=== PATIENT | male | born 1955 | race Caucasian/White ===

== ENCOUNTER 2020-02-02 09:28 | Inpatient (IN) | payer OTHER, SELFPAY ==
[2020-02-02] VITALS (21 sets, daily range): BP systolic 58–108; BP diastolic 45–85; PULSE 58–110; RESP 10–21; TEMP 36.6–38.8; O2SAT 93–99; BMI 25.2
--- NOTE | ~2020-02-02 | XR_ITS ---
XR abdomen NG/feed tube insert INDICATION: Evaluate NG tube position. TECHNIQUE: Limited KUB perform for evaluating NG tube . COMPARISON: 10/21/2019 FINDINGS: NG tube tip in the stomach. Visualized bowel gas pattern is unremarkable. IMPRESSION: 1: NG tube tip in the stomach. Reviewed, dictated and finalized at location A.
--- NOTE | ~2020-02-02 | XR_ITS ---
EXAMINATION: XR chest 1V portable DATE: 02/05/2020 06:22 INDICATION: Respiratory failure. Intubated. TECHNIQUE: frontal view of the chest was obtained. COMPARISON: Chest radiograph dated 02/04/2020 FINDINGS: Endotracheal tube tip 1.7 cm above the kwasi. Nasogastric tube extends below the left hemidiaphragm with distal tip collimated off the study. Patient is rotated towards the right. Slight improvement in the indistinct interstitial and patchy ai rspace opacities scattered throughout the right lung. New opacity with sharply defined peripheral mar gin projecting over the left midlung zone and favor a skinfold over additional lung disease. No pneum othorax or pleural effusion. Cardiomegaly. Suture anchors at the right humeral head likely related to prior rotator cuff repair with narrowing of the subacromial space suggesting recurrent tear. IMPRESSION: 1. Slight decrease in airspace disease throughout the right lung consistent with improvement in pneum onia and/or asymmetric pulmonary edema. 2. New airspace opacity in the left midlung zone most likely artifact of a skinfold with differential including less likely increasing atelectasis or pneumonia. 3. Cardiomegaly. Reviewed, dictated and finalized at location A. IMPRESSION: 1. Slight decrease in airspace disease throughout the right lung consistent wit h improvement in pneumonia and/or asymmetric pulmonary edema. 2. New airspace opacity in the left midlung zone most likely artifact of a skin fold with differential including less likely increasing atelectasis or pneumoni a. 3. Cardiomegaly.
--- NOTE | ~2020-02-02 | XR_ITS ---
EXAMINATION: XR chest 1V portable EXAM DATE: 02/04/2020 06:29 INDICATION: Intubated. Respiratory failure. TECHNIQUE: Portable AP frontal chest x-ray was obtained. Comparison is made to prior examination from 02/03/2020. FINDINGS: Endotracheal tube tip is 2 centimeters above the kwasi (ideal range is between 2 to 5 cm). There is a nasogastric tube seen with tip collimated off the study, but below the left hemidiaphrag m. There is extensive right-sided, moderate left-sided acute airspace disease. There is no pneumothorax suspected. Cardiac silhouette is enlarged but stable in size compared to prior exam. The bones a nd soft tissues are unremarkable. Endotracheal tube has been retracted slightly, otherwise is no sig nificant interval change compared to prior exam. IMPRESSION: 1. Tubes in position. 2. Extensive right, moderate left-sided acute airspace disease. Reviewed, dictated and finalized at location A.
--- NOTE | ~2020-02-02 | XR_ITS ---
XR chest ET placement 02/02/2020 13:29 Indication: Respiratory failure. Dyspnea. Low oxygen saturation. Procedure: AP portable chest Comparison: Comparison to multiple prior studies sequentially, with oldest reviewed study dated 10/29. Findings: Endotracheal tube tip 7 mm above the kwasi. NG tube in the stomach. Cardiomegaly. Right ba silar airspace disease, compatible with pneumonia. Impression: 1: Right basilar airspace disease, compatible with pneumonia. 2: Endotracheal tube tip 7 mm above the kwasi. Recommend retraction approximately 3-4 cm. Reviewed, dictated and finalized at location A. Impression: 1: Right basilar airspace disease, compatible with pneumonia. 2: Endotracheal tube tip 7 mm above the kwasi. Recommend retraction approxima tely 3-4 cm.
--- NOTE | ~2020-02-02 | XR_ITS ---
XR chest 1V portable 02/02/2020 10:30 Indication: Shortness of breath. Low oxygen saturation Procedure: AP view of the chest Comparison: 10/31/2019 Findings: Improved right upper lobe airspace consolidation. There is a left perihilar and right basil ar airspace disease as well. Cardiomegaly. Small right pleural effusion. Impression: 1: Patchy bilateral airspace disease with improving consolidation in the right upper lobe, consistent with pneumonia. 2: Small right pleural effusion. Reviewed, dictated and finalized at location A. Impression: 1: Patchy bilateral airspace disease with improving consolidation in the right upper lobe, consistent with pneumonia. 2: Small right pleural effusion.
--- NOTE | ~2020-02-02 | XR_ITS ---
EXAMINATION: XR chest 1V portable EXAM DATE: 02/03/2020 05:47 INDICATION: Respiratory failure. TECHNIQUE: Portable AP frontal chest x-ray was obtained. Comparison is made to prior examination from 02/02/2020. FINDINGS: Endotracheal tube tip is 0.5 centimeters above the kwasi (ideal range is between 2 to 5 cm ). There is a nasogastric tube seen with tip collimated off the study, but below the left hemidiaphr agm. There is extensive right-sided, moderate left-sided acute airspace disease. There is no pneumothorax suspected. Cardiac silhouette is enlarged but stable in size compared to prior exam. The bones a nd soft tissues are unremarkable. There is no significant interval change compared to prior exam. IMPRESSION: 1. ET tube above kwasi, but could be safely retracted 1-2 cm. 2. Stable airspace disease and other findings as above. Reviewed, dictated and finalized at location A.
--- NOTE | ~2020-02-02 | XR_ITS ---
EXAMINATION: XR chest 1V portable DATE: 02/06/2020 06:14 INDICATION: Intubated. Respiratory failure. TECHNIQUE: frontal view of the chest was obtained. COMPARISON: Chest radiograph dated 02/05/2020 FINDINGS: Endotracheal tube tip 2.1 cm above the kwasi. Nasogastric tube coiled in the stomach. Patient is again rotated towards the right. No significant interval change in interstitial and mild p atchy airspace opacities throughout the right lung and in the left perihilar and lower lung zones. No pneumothorax or definitive pleural effusion. Cardiomegaly. Postoperative change of right rotator cuf f repair with moderate right glenohumeral osteoarthritis. IMPRESSION: 1. No significant change in bilateral airspace disease, right greater than left which could represent pneumonia or asymmetric pulmonary edema. 2. Cardiomegaly. Reviewed, dictated and finalized at location A.
--- NOTE | ~2020-02-02 | US_ITS ---
EXAMINATION: US venous doppler LE EXAM DATE: 02/03/2020 13:12 INDICATION: Low oxygen. TECHNIQUE: Multiple grayscale, color flow and Doppler images of the lower extremity deep venous syste ms bilaterally were obtained and reviewed. Comparison is made to prior examination from 03/29/2019. FINDINGS: Right side: The right common femoral, femoral and profunda veins demonstrate normal color flow, respi ratory variation, augmentation and compressibility. Compressibility, color flow confirmed within the right popliteal, posterior tibial, peroneal, and greater saphenous veins. Left side: The left common femoral, femoral and profunda veins demonstrate normal color flow, respira tory variation, augmentation and compressibility. Compressibility, color flow confirmed within the l eft popliteal, posterior tibial, peroneal, and greater saphenous veins. IMPRESSION: 1. No lower extremity deep venous thrombosis bilaterally. Reviewed, dictated and finalized at location A.
--- NOTE | ~2020-02-02 | XR_ITS ---
EXAMINATION: XR chest 1V portable DATE: 02/07/2020 06:03 INDICATION: Intubation. Respiratory failure. TECHNIQUE: frontal view of the chest was obtained. COMPARISON: Chest radiograph dated 02/06/20 FINDINGS: Patient is again rotated towards the right. Endotracheal tube and nasogastric tube are no longer visu alized, correlate for interval removal. No significant interval change in reticular predominant opaci ties throughout the right lung and in the left mid and lower lung zones. Small calcified nodule in th e left upper lung zone consistent with old granulomatous disease. No pneumothorax. Likely very small right pleural effusion. Cardiomegaly. IMPRESSION: 1. Minimal change attending for differences in technique in bilateral airspace disease, right greater than left which could represent pulmonary edema and/or pneumonia. 2. Very small right pleural effusion. 3. Cardiomegaly. Reviewed, dictated and finalized at location A. IMPRESSION: 1. Minimal change attending for differences in technique in bilateral airspace disease, right greater than left which could represent pulmonary edema and/or p neumonia. 2. Very small right pleural effusion. 3. Cardiomegaly.
--- NOTE | 2020-02-02 09:29 | ECG_ITS ---
Measurements Intervals [place] Rate: 107 P: 38 VT: 114 QRS: -85 QRSD: 108 T: 57 QT: 314 QTc: 420 Interpretive Statements SINUS TACHYCARDIA WITH SHORT VT INTERVAL VENTRICULAR PREMATURE COMPLEX LEFT ANTERIOR FASCICULAR BLOCK BORDERLINE T WAVE ABNORMALITY- LATERAL LEADS BASELINE ARTIFACT- I, II, III, AVL ABNORMAL ECG Electronically Signed On 02-02-2020 10:56:42 CDT by Antelmo Aldana D.O.
--- NOTE | 2020-02-02 09:42 | ED.SOB ---
HPI - SOB/Dyspnea General Chief Complaint: Shortness of Breath/Dyspnea Stated Complaint: Low O2, sob Time Seen by Provider: 02/02/20 09:30 History of Present Illness HPI Narrative: Patient is a 64-year-old male who presents the ER with shortness of breath. Family reports he has become more confused and short of breath over the last couple of days. Chronic cough. Has history of COPD and is supposed to wear oxygen but does not. He uses his albuterol frequently without improvement of his symptoms. Patient recently admitted a couple months ago for pneumonia. Patient also has history of opiate abuse and continues to smoke. Related Data Home Medications Medication Instructions Recorded Confirmed amlodipine 5 mg PO DAILY 09/10/19 10/20/19 finasteride 5 mg PO DAILY 09/10/19 10/20/19 lisinopril 20 mg PO DAILY 09/10/19 10/20/19 paroxetine HCl 20 mg PO DAILY 09/10/19 10/20/19 tamsulosin 0.4 mg PO DAILY 09/10/19 10/20/19 nitroglycerin 1 mg SUBLINGUAL DAILY PRN 10/20/19 10/20/19 Allergies Allergy/AdvReac Type Severity Reaction Status Date / Time No Known Allergies Allergy Verified 10/20/19 03:42 Review of Systems Review of Systems: ROS unobtainable: Yes unobtainable due to mental status PMFSH Social History Social History Social History: Patient lives with his Vale who is his POA. He is disabled from his COPD. He remains a full code. He does have known ongoing opioid abuse. Continues to smoke 1 pack of cigarettes daily. Previous alcohol abuse with last alcoholic drink approximately 5 years ago. Smoking packs per day: 1 Smoking cigarettes per day: 20.0 Years smoked: 50 Smoking pack-years: 50.00 Smoking status: Current every day smoker Tobacco type: cigarettes Alcohol intake: former Substance use: current Substance use type: sedatives and painkillers Other substance usage details: Fentanyl, Valium Additional living arrangements comments: Patient lives with his . Additional occupation/education comments: Disabled from COPD. Gender identity (if verbalized by the patient): Male Spiritual care concerns: No Agree to blood products: Yes Exam Narrative: Exam Narrative: GENERAL: Chronically ill-appearing, well-nourished, and in no acute distress. HEAD: Normocephalic, atraumatic. Eyes: PERRLA, EOMI ENT: Mucous membranes moist. CHEST: Diminished bilaterally with increased respiratory rate. HEART: Tachycardic and regular. Normal peripheral pulses. ABDOMEN: Soft, nontender, nondistended. EXTREMITIES: Normal range of motion. No edema. SKIN: Warm, dry, no rash. NEURO: Alert and oriented x2. Course Course Emergency Course: Discussed case with hospitalist and workforce advisor. There is recommend patient be intubated this was performed without issue. Post intubation x-ray showed ET tube was well so I had respiratory with dried 1.5 cm. Patient stable and is received IV antibiotics. Fentanyl and Versed for sedation. Vital Signs Vital signs: Vital Signs Temperature 99.6 F 02/02/20 09:46 Pulse Rate 105 H 02/02/20 09:46 Respiratory Rate 12 02/02/20 09:46 Blood Pressure 99/60 L 02/02/20 09:46 Pulse Oximetry 95 02/02/20 09:46 Temperature 99.6 F 02/02/20 09:46 Pulse Rate 81 02/02/20 13:15 Respiratory Rate 21 H 02/02/20 12:40 Blood Pressure 90/60 L 02/02/20 12:06 Pulse Oximetry 94 02/02/20 13:15 Procedures Intubation Intubation #1: Intubation Date: 02/02/20 Intubation Time: 12:57 sedative: Etomidate Mg Given: 30 paralytic: Succinylcholine Mg Given: 100 Laryngoscope: fiber optic video scope Tube Size (cm): 7.5 Method of Intubation: orotracheal Number of Attempts: 1 Tube Secured Depth (cm): 25 Tube Secured Location: lips Tube Placement Confirmation: visualized tube passing through cords, equal breath sounds bilat
[2020-02-02 09:59] LABS: Basophils Absolute Auto 0.1 K/mm3 (0.0-0.1); Basophils Percent Auto 0.4 % (0.2-1.2); Eosinophils Absolute Auto 0.1 K/mm3 (0-0.3); Eosinophils Percent Auto 0.4 % (0-4.4); Hematocrit 37.8 % (42.0-52.0); Hemoglobin 11.4 g/dL (14.0-18.0); Immature Granulocyte Absolute 0.09 K/mm3 (0.00-0.031); Immature Granulocyte Percent A 0.4 % (0-0.5); Lymphocytes Absolute Auto 1.03 K/mm3 (0.9-3.2); Lymphocytes Percent Auto 4.8 % (18.3-44.2); Mean Corpuscular HGB Conc 30.2 g/dl (32-36); Mean Corpuscular Hemoglobin 28.3 pg (26-34); Mean Corpuscular Volume 93.8 fl (80-100); Mean Platelet Volume 10.4 fl (7.4-10.4); Monocytes Absolute Auto 1.3 K/mm3 (0.1-0.6); Monocytes Percent Auto 6.3 % (2.6-8.5); Neutrophils Absolute Auto 18.6 K/mm3 (1.3-6.7); Neutrophils Percent Auto 87.7 % (45.5-73.1); Platelet Count Result 212 k/mm3 (150-375); Red Blood Count 4.03 M/mm3 (4.6-6.20); Red Cell Distribution Width 15.3 % (11.5-14.5); White Blood Count 21.3 K/mm3 (4.5-10.0)
[2020-02-02] MEDS: SODIUM CHLORIDE 0.9% IV 1,000 ML 999 ML IV CONT ×2 (10:10→10:29)
[2020-02-02 10:11] LABS: Lactic Acid Reflex 0.9 mmol/L (0.7-2.1)
[2020-02-02 10:12] LABS: Alveolar/Arterial O2 Gradient 89.7 mmHg; Base Excess ABG 1.9 mEq/l (+/-2.0); Carboxyhemoglobin 3.4 % THb (0-2.0); Fractional Inspired Oxygen 40 %; HCO3 ABG 32.3 mEq/l (22.0-26.0); Methemoglobin ABG 0.1 %THb (0-1.5); Oxygen Content ABG 15.6 %vol (16.0-22.0); Oxygen Saturation ABG 95.4 % (95.0-100.0); Oxyhemoglobin 91.8 % THb (90.0-100.0); PO2 ABG 97.1 mmHg (80.0-100.0); PO2 FiO2 Ratio Arterial Blood 2.43 %; Reduced Hemoglobin 4.7 %THb (0-5.0)
[2020-02-02 10:14] LABS: Blood Urea Nitrogen 26 mg/dL (9-20); Calcium 9.3 mg/dL (8.4-10.2); Carbon Dioxide 33 mmol/L (22-30); Chloride 97 mmol/L (98-107); Estimated CRCL calculation 84 ml/min; Estimated Glomerular Filt Rate > 60; Glucose 105 mg/dL (75-110); Sodium 135 mmol/L (137-145)
[2020-02-02 10:15] LABS: pH ABG 7.194 (7.350-7.450)
[2020-02-02 10:16] LABS: Device NASAL CANNULA; PCO2 ABG 85.6 mmHg (35.0-45.0); Site Drawn LEFT BRACHIAL
--- NOTE | 2020-02-02 10:37 | PC.NURSE ---
Per verbal order readback from EDP, stop infusing fluids after 1L and reassess. Fluids stopped with 500ml left in both bags.
--- NOTE | 2020-02-02 12:28 | PC.NURSE ---
Per EDP via verbal order readback change TKO rate of fluids to wide open to give the Pt. an additional 500ml bolus.
--- NOTE | 2020-02-02 12:35 | PC.NURSE ---
Vale Napier Pt Phone number [phone]
--- NOTE | 2020-02-02 13:26 | PC.NURSE ---
Addendum entered by Jae Mcdaniel RN 02/02/20 13:37: 1250 Consent obtained from (Vale Napier) over phone. Original Note: 1255 Per EDP verbal order readback give 30mg Etomidate followed by 100mg Succinylcholine. 1256 Bagging patient with BVM 1257 Pt. intubated with 7.5 ET tube 25cm at the lip. 1310 given 2mg versed to sedate Pt. per verbal order readback by EDP.
--- NOTE | 2020-02-02 14:50 | PC.NURSE ---
Upon entering Pt. room, Pt. ventilator alarm going off and found Pt. awake trying to get out of bed. EDP notified and verbal order readback administer 2mg versed for sedation.
[2020-02-02] MEDS: MIDAZOLAM HCL 2 MG/2 ML VIAL (14:51)
--- NOTE | 2020-02-02 15:45 | PM.IMHP ---
H&P: HPI History of Present Illness Chief complaint: ?Low oxygen.? Narrative: Christoph Napier is a 64-year-old male smoker with COPD, chronic respiratory failure, chronic systolic heart failure, hypertension, coronary artery disease, atrial fibrillation, bipolar disorder, and history of opioid and alcohol abuse who presented to the emergency department earlier this morning for evaluation of ?low oxygen.? The patient is currently sedated and intubated, and is unable to provide any medical history. As such, all of the following information is obtained via a review of his electronic medical records as well as discussions with his , Vale. He is known to the hospitalist service, as he was admitted to us in October 2019 with respiratory failure, also requiring intubation. In any regard, he has chronic dyspnea however that has become progressively worse over the past several days. also notes that he has been increasingly confused. This morning his SpO2 at home was 83%, prompting her to bring him in for evaluation. On arrival to the emergency department, the patient was ?lethargic, ashen in color, and demonstrated abdominal breathing.? His SpO2 was 44% on room air. He was subsequently intubated and admitted to the intensive care unit with sepsis secondary to pneumonia and acute on chronic respiratory failure. His blood pressures have been soft since arrival to the hospital, maintaining in the 90 systolic, however he has become progressively more hypotensive and the central line was inserted he is now being started on vasopressors. Review of Systems Review of Systems: Narrative: Unobtainable due to current clinical condition; patient is sedated and intubated. COUNTS INCLUDE 234 BEDS AT THE [facility] Past Medical History Medical History (Updated 02/02/20 @ 19:53 by Afsaneh Mckenna PA-C) Anxiety Arthritis Benign prostatic hyperplasia Bipolar 1 disorder Bowel obstruction Chronic anemia Chronic respiratory failure Chronic systolic congestive heart failure Echocardiogram in October 2018 showed some regional wall motion abnormalities and thus accurate ejection fraction could not be reported. Limited echocardiogram in August 2019 showed mildly reduced LV systolic function with ejection fraction of 40% as well as diastolic dysfunction grade 2. Mid inferior wall and basal anterior lateral wall were akinetic. COPD (chronic obstructive pulmonary disease) Coronary artery disease Depression Diverticulitis Essential hypertension GERD (gastroesophageal reflux disease) Hiatal hernia Hyperlipidemia Obstructive sleep apnea Opiate use Osteoarthritis Pancreatitis Paroxysmal atrial fibrillation Renal disease Tobacco dependence Surgical History Surgical History (Updated 02/02/20 @ 19:47 by Afsaneh Mckenna PA-C) History of bowel resection For benign tumor. History of coronary artery stent placement History of repair of right rotator cuff History of right knee joint replacement Family History Family History Sibling Acute myocardial infarction Colon cancer Diabetes mellitus Hypertension Leukemia Father Acute myocardial infarction Congestive heart failure Mother History of blood clots Cerebrovascular accident Chronic obstructive pulmonary disease Asthma Cancer Sibling Diabetes mellitus Social History Social History (Updated 02/02/20 @ 19:48 by Afsaneh Mckenna PA-C) Social History: Patient lives with his Vale who is his POA. He is disabled from his COPD. He remains a full code. He does have known ongoing opioid abuse. Continues to smoke 1 pack of cigarettes daily. Previous alcohol abuse with last alcoholic drink approximately 5 years ago. Smoking packs per day: 1 Smoking cigarettes per day: 20.0 Years smoked: 50 Smoking pack-years: 50.00 Smoking status: Current every day smoker Tobacco type: cigarettes Other substance usage details: Fentanyl, Valium Aldo
--- NOTE | 2020-02-02 15:57 | ADMGEN ---
This patient, Christoph Napier, was admitted to Intensive Care Unit-3 at 1530. Patient/family oriented to hospital policies and general routines including ID bracelet, bed and alarms, visiting hours, pain management, procedures, bathroom and other care routines, personal items, smoking policy, room service/diet, and visiting hours. Valuables list has been completed. Information on how to activate the Rapid Response Team has been discussed. Patient/Family are encouraged to report perceived risks to care and to ask questions if they do not understand what they are told or what they should do.
[2020-02-02] MEDS: SODIUM CHLORIDE 0.9% IV 500 ML 999 ML IV CONT (16:13)
[2020-02-02] MEDS: CENTRAL LINE FLUSH 10 ML IV PUSH ×2 (16:43→19:41)
--- NOTE | 2020-02-02 16:45 | P.PCNBED_ITS ---
Procedures Central Line Placement: Right Femoral: Discussed w/ patient and/or surrogate, the non-emergent placement of a central venous catheter, including its clinical necessity/indication & associated potential risks & complications.: Yes The patient and/or surrogate understand(s) and acknowledge(s) the need to proceed with central venous catheter insertion as an important element of the patient's clinical management.: Yes Consent: Vale gave consent via phone. Central Line Date: 02/02/20 Central Line Time: 16:45 Pre-procedural Time-Out was completed immediately before starting the procedure and confirmed: Patient Identification, Site, Procedure, Patient Position and the Availability of Requisite Equipment.: Yes Patient Position: supine Patient placed on monitor/pulse ox: Yes Provider Prep: mask, sterile gown, sterile gloves, Max. sterile barrier pre cautions, cap and hand hygiene Central line prep: Povidone-Iodine 1% and sterile full body sheet applied Local anesthesia used: lidocaine 1% Amount of anesthesia used (ml): 5 Ultrasound used for placement: Yes Central line lumen inserted: triple Polish: 7 Length (cm): 20 Post procedure: sutured in place, good blood return, all ports aspirated, flushed, capped, tegaderm, hemostatic disc and aseptic technique maintained throughout procedure Post procedure x-ray: other (N/A with femoral placement. ) Patient tolerated procedure: well Complications: none
[2020-02-02] MEDS: NOREPINEPHRINE 8 MG/D5W 250 ML 8 MG/250 ML BAG 9.4 MG IV CONT (17:11)
[2020-02-02 18:49] LABS: Alveolar/Arterial O2 Gradient 157.7 mmHg; Fractional Inspired Oxygen 40 %; HCO3 ABG 28.2 mEq/l (22.0-26.0); Oxygen Content ABG 14.9 %vol (16.0-22.0); Oxyhemoglobin 88.7 % THb (90.0-100.0); PCO2 ABG 57.3 mmHg (35.0-45.0); PO2 ABG 61.6 mmHg (80.0-100.0); PO2 FiO2 Ratio Arterial Blood 1.54 %; Total Hemoglobin 11.9 g/dL (12.0-18.0)
[2020-02-02 18:50] LABS: Modified Allen's Test Pass; Site Drawn LEFT RADIAL
[2020-02-02 18:51] LABS: Device VENTILATOR
[2020-02-02 18:52] LABS: Arterial Blood Gas PEEP 5 cmH2O; Arterial Blood Gas Pressure Support 0 cmH2O; Arterial Blood Gas Tidal Volume 420 ml; Arterial Blood Gas Vent Mode CMV; Arterial Blood Gas Ventilator rate 20 /MIN
[2020-02-02 22:00] LABS: Influenza Control Positive
[2020-02-02 22:02] LABS: Alanine Aminotransferase 32 U/L (4-50); Albumin Level 3.4 g/dL (3.5-5.1); Alkaline Phosphatase 120 U/L (38-126); Aspartate Amino Transferase 51 U/L (17-59); Bilirubin,Total 0.5 mg/dL (0.2-1.3); Blood Urea Nitrogen 18 mg/dL (9-20); CRP 8.5 mg/dL (<1.0); Calcium 8.2 mg/dL (8.4-10.2); Carbon Dioxide 34 mmol/L (22-30); Chloride 99 mmol/L (98-107); Estimated CRCL calculation 96 ml/min; Estimated Glomerular Filt Rate > 60; Glucose 100 mg/dL (75-110); Lactate Dehydrogenase 412 U/L (313-618); Magnesium 1.9 mg/dL (1.6-2.3); Phosphorus 2.1 mg/dL (2.5-4.5); Potassium 4.5 mmol/L (3.4-5.0); Sodium 136 mmol/L (137-145)
[2020-02-03] VITALS (23 sets, daily range): BP systolic 77–116; BP diastolic 37–78; PULSE 53–92; RESP 13–20; TEMP 36.6–38.1; O2SAT 20–97
[2020-02-03] MEDS: CENTRAL LINE FLUSH 10 ML IV PUSH ×4 (03:49→20:06)
[2020-02-03 04:38] LABS: Alveolar/Arterial O2 Gradient 156.3 mmHg; Base Excess ABG 6.2 mEq/l (+/-2.0); Fractional Inspired Oxygen 40 %; HCO3 ABG 33.3 mEq/l (22.0-26.0); Oxygen Content ABG 14.8 %vol (16.0-22.0); Oxygen Saturation ABG 88.9 % (95.0-100.0); Oxyhemoglobin 89.1 % THb (90.0-100.0); PO2 ABG 59.2 mmHg (80.0-100.0); PO2 FiO2 Ratio Arterial Blood 1.48 %; Total Hemoglobin 11.8 g/dL (12.0-18.0); pH ABG 7.358 (7.350-7.450)
[2020-02-03 04:40] LABS: Device VENTILATOR; Modified Allen's Test Pass; PCO2 ABG 60.6 mmHg (35.0-45.0); Site Drawn RIGHT RADIAL
[2020-02-03 04:41] LABS: Arterial Blood Gas PEEP 5 cmH2O; Arterial Blood Gas Tidal Volume 420 ml; Arterial Blood Gas Vent Mode CMV; Arterial Blood Gas Ventilator rate 20 /MIN
[2020-02-03 05:27] LABS: Hematocrit 34.4 % (42.0-52.0); Hemoglobin 10.7 g/dL (14.0-18.0); Mean Corpuscular HGB Conc 31.1 g/dl (32-36); Mean Corpuscular Hemoglobin 28.6 pg (26-34); Platelet Count Result 198 k/mm3 (150-375); Red Blood Count 3.74 M/mm3 (4.6-6.20); Red Cell Distribution Width 15.5 % (11.5-14.5); White Blood Count 20.1 K/mm3 (4.5-10.0)
[2020-02-03 05:42] LABS: Alanine Aminotransferase 29 U/L (4-50); Albumin Level 3.2 g/dL (3.5-5.1); Alkaline Phosphatase 110 U/L (38-126); Aspartate Amino Transferase 38 U/L (17-59); Bilirubin,Total 0.6 mg/dL (0.2-1.3); Blood Urea Nitrogen 12 mg/dL (9-20); Calcium 8.4 mg/dL (8.4-10.2); Carbon Dioxide 36 mmol/L (22-30); Chloride 98 mmol/L (98-107); Estimated CRCL calculation 113 ml/min; Estimated Glomerular Filt Rate > 60; Glucose 101 mg/dL (75-110); Magnesium 1.9 mg/dL (1.6-2.3); Phosphorus 1.8 mg/dL (2.5-4.5); Potassium 4.3 mmol/L (3.4-5.0); Sodium 134 mmol/L (137-145)
--- NOTE | 2020-02-03 09:43 | P.PNIM_ITS ---
Progress Note: A&P Assessment and Plan (1) Acute on chronic respiratory failure with hypoxia and hypercapnia: Code(s): J96.21 - Acute and chronic respiratory failure with hypoxia; J96.22 - Acute and chronic respiratory failure with hypercapnia Status: Acute Assessment and Plan: * 02/01 intubated on arrival to the emergency department. * Vent management per counter cutter. (2) Septic shock: Code(s): A41.9 - Sepsis, unspecified organism; R65.21 - Severe sepsis with septic shock Status: Acute Assessment and Plan: * Supported by fever, tachycardia, leukocytosis, and hypotension, refractory to IV fluid boluses. * Lactic acid levels within normal limits. * Blood cultures have been obtained and are pending. (3) Right upper lobe pneumonia: Qualifiers: Pneumonia type: due to unspecified organism Qualified Code(s): J18.9 - Pneumonia, unspecified organism Code(s): J18.9 - Pneumonia, unspecified organism Status: Acute Assessment and Plan: * Continue azithromycin, ceftriaxone, and vancomycin day 1 * Sputum to be attempted for culture * Urine antigens for strep, legionella * COVID-19 results pending * Continue bronchodilators (4) COPD (chronic obstructive pulmonary disease): Qualifiers: COPD type: unspecified COPD Qualified Code(s): J44.9 - Chronic obstructive pulmonary disease, unspecified Code(s): J44.9 - Chronic obstructive pulmonary disease, unspecified Status: Acute Assessment and Plan: * No significant wheezing noted. * Given concerns for possible COVID-19, withhold steroids (5) Tobacco dependence: Code(s): F17.200 - Nicotine dependence, unspecified, uncomplicated Status: Acute Assessment and Plan: * Smoking cessation not addressed due to condition (6) Essential hypertension: Code(s): I10 - Essential (primary) hypertension Status: Acute Assessment and Plan: * Patient is hypotensive, and thus antihypertensives are on hold. (7) Opioid abuse: Code(s): F11.10 - Opioid abuse, uncomplicated Status: Acute Assessment and Plan: * Monitor for s/sx w/d (8) Chronic systolic congestive heart failure: Code(s): I50.22 - Chronic systolic (congestive) heart failure Status: Acute Assessment and Plan: * Clinically not in acute failure Subjective Date/time seen: 04/18/20 09:43 Interval history: Admitted 02/01 with pneumonia and respiratory failure. Intubated. Review of Systems Review of Systems: ROS unobtainable: Yes unobtainable due to medical condition Exam Narrative: Exam Narrative: General: Acutely ill-appearing male sedated and intubated. Psychiatric: Unable to assess as he is sedated and intubated Objective Data Vital Signs Vital Signs: Vital Signs - 24 hr 02/02/20 09:46 02/02/20 09:59 02/02/20 10:12 Temperature 99.6 F Pulse Rate 105 H 110 H Respiratory Rate 12 Blood Pressure 99/60 L Pulse Oximetry 95 95 02/02/20 10:39 02/02/20 10:46 02/02/20 11:25 Temperature Pulse Rate 91 Respiratory Rate 11 L Blood Pressure Pulse Oximetry 99 98 93 02/02/20 12:06 02/02/20 12:40 02/02/20 13:15 Temperature Pulse
--- NOTE | 2020-02-03 09:43 | PM.IMPN ---
Progress Note: A&P Assessment and Plan (1) Acute on chronic respiratory failure with hypoxia and hypercapnia: Code(s): J96.21 - Acute and chronic respiratory failure with hypoxia; J96.22 - Acute and chronic respiratory failure with hypercapnia Status: Acute Assessment and Plan: 02/01 intubated on arrival to the emergency department. Vent management per farmer general. (2) Septic shock: Code(s): A41.9 - Sepsis, unspecified organism; R65.21 - Severe sepsis with septic shock Status: Acute Assessment and Plan: Supported by fever, tachycardia, leukocytosis, and hypotension, refractory to IV fluid boluses. Lactic acid levels within normal limits. Blood cultures have been obtained and are pending. (3) Right upper lobe pneumonia: Qualifiers: Pneumonia type: due to unspecified organism Qualified Code(s): J18.9 - Pneumonia, unspecified organism Code(s): J18.9 - Pneumonia, unspecified organism Status: Acute Assessment and Plan: Continue azithromycin, ceftriaxone, and vancomycin day 1 Sputum to be attempted for culture Urine antigens for strep, legionella COVID-19 results pending Continue bronchodilators (4) COPD (chronic obstructive pulmonary disease): Qualifiers: COPD type: unspecified COPD Qualified Code(s): J44.9 - Chronic obstructive pulmonary disease, unspecified Code(s): J44.9 - Chronic obstructive pulmonary disease, unspecified Status: Acute Assessment and Plan: No significant wheezing noted. Given concerns for possible COVID-19, withhold steroids (5) Tobacco dependence: Code(s): F17.200 - Nicotine dependence, unspecified, uncomplicated Status: Acute Assessment and Plan: Smoking cessation not addressed due to condition (6) Essential hypertension: Code(s): I10 - Essential (primary) hypertension Status: Acute Assessment and Plan: Patient is hypotensive, and thus antihypertensives are on hold. (7) Opioid abuse: Code(s): F11.10 - Opioid abuse, uncomplicated Status: Acute Assessment and Plan: Monitor for s/sx w/d (8) Chronic systolic congestive heart failure: Code(s): I50.22 - Chronic systolic (congestive) heart failure Status: Acute Assessment and Plan: Clinically not in acute failure Subjective Date/time seen: 02/03/20 09:43 Interval history: Admitted 02/01 with pneumonia and respiratory failure. Intubated. Review of Systems Review of Systems: ROS unobtainable: Yes unobtainable due to medical condition Exam Narrative: Exam Narrative: General: Acutely ill-appearing male sedated and intubated. Psychiatric: Unable to assess as he is sedated and intubated Objective Data Vital Signs Vital Signs: Vital Signs - 24 hr 02/02/20 09:46 02/02/20 09:59 02/02/20 10:12 Temperature 99.6 F Pulse Rate 105 H 110 H Respiratory Rate 12 Blood Pressure 99/60 L Pulse Oximetry 95 95 02/02/20 10:39 02/02/20 10:46 02/02/20 11:25 Temperature Pulse Rate 91 Respiratory Rate 11 L Blood Pressure Pulse Oximetry 99 98 93 02/02/20 12:06 02/02/20 12:40 02/02/20 13:15 Temperature Pulse Rate 85 77 81 Respiratory Rate 10 L 21 H Blood Pressure 90/60 L Pulse Oximetry 99 93 94 02/02/20 14:33 02/02/20 15:00 02/02/20 15:41 Temperature 101.9 F H Pulse Rate 58 L 94 77 Respiratory Rate 20 20 18 Blood Pressure 99/59 L 105/68 84/64 L Pulse Oximetry 99 99 96 02/02/20 15:42 02/02/20 16:00 02/02/20 16:35 Temperature Pulse Rate 83 73 77 Respiratory Rate 20 Blood Pressure 58/45 L Pulse Oximetry 93 96 95 02/02/20 18:00 02/02/20 20:00 02/02/20 20:27 Temperature 97.9 F Pulse Rate 71 69 65 Respiratory Rate 20 20 Blood Pressure 100/85 103/72 Pulse Oximetry 95 94 95 02/02/20 22:00 02/02/20 23:12 02/02/20 23:44 Temperature 98 F Pulse Rate 69 71 73 Re
[2020-02-03] MEDS: NOREPINEPHRINE 8 MG/D5W 250 ML 8 MG/250 ML BAG 15 MG IV CONT (10:31)
--- NOTE | 2020-02-03 11:53 | WPDCNINT ---
Assessment and Plan Assessment and plan (1) Acute on chronic respiratory failure with hypoxia and hypercapnia: Code(s): J96.21 - Acute and chronic respiratory failure with hypoxia; J96.22 - Acute and chronic respiratory failure with hypercapnia Status: Acute Assessment and Plan: Noncompliant to home oxygen at baseline. Had acute hypercarbic respiratory failure yesterday at presentation with acute on chronic hypoxic respiratory failure with oxygen saturation in mid 40s on room air. Intubated on 02/01 at the time of presentation to emergency department. Continue mechanical ventilation with current settings. He is requiring FiO2 of 40% and PEEP of 5. Lower tidal volume strategies. Not suitable for spontaneous breathing trial today. Monitor ABG and chest x-ray. Currently sedated with fentanyl and Versed. Daily sedation vacation trial. (2) Pneumonia: Code(s): J18.9 - Pneumonia, unspecified organism Status: Acute Assessment and Plan: Chest x-ray is suggestive of airspace disease on the right side. Send tracheal aspirate for culture. Does seem to have moderate amount of stick mucoid secretions. Switch ceftriaxone to cefepime. Continue vancomycin and azithromycin. Deescalate antibiotics depending on cultures. (3) Suspected COVID-19 virus infection: Code(s): R68.89 - Other general symptoms and signs Status: Acute Assessment and Plan: COVID19 Testing is in progress. Continue droplet and contact precaution. (4) Septic shock: Code(s): A41.9 - Sepsis, unspecified organism; R65.21 - Severe sepsis with septic shock Status: Acute Assessment and Plan: Currently requiring Levophed of 8 mcg. Wean pressor if tolerated. (5) Encephalopathy: Code(s): G93.40 - Encephalopathy, unspecified Status: Acute Assessment and Plan: Likely metabolic in nature. Had acute hypercarbic respiratory failure yesterday with pCO2 of 85. Currently sedated with fentanyl and Versed. Daily sedation vacation trials. (6) COPD (chronic obstructive pulmonary disease): Qualifiers: COPD type: unspecified COPD Qualified Code(s): J44.9 - Chronic obstructive pulmonary disease, unspecified Code(s): J44.9 - Chronic obstructive pulmonary disease, unspecified Status: Acute Assessment and Plan: Diminished breath sounds bilaterally with some occasional wheezing. Currently not on steroid but will start him on it once he is ruled out of COVID19. He will be started on nebulization /bronchodilators once he is ruled out because of the concern for aerosole formation. (7) HTN (hypertension): Qualifiers: Hypertension type: essential hypertension Qualified Code(s): I10 - Essential (primary) hypertension Code(s): I10 - Essential (primary) hypertension Status: Acute Assessment and Plan: Antihypertensive medications are on hold. (8) CHF (congestive heart failure): Qualifiers: Heart failure chronicity: chronic Heart failure type: systolic Qualified Code(s): I50.22 - Chronic systolic (congestive) heart failure Code(s): I50.9 - Heart failure, unspecified Status: Acute Assessment and Plan: Currently seems euvolemic. Hold off any Lasix. Strict intake output record. Will diurese him gently once he is off pressors. (9) DVT prophylaxis: Code(s): Z29.9 - Encounter for prophylactic measures, unspecified Status: Acute Assessment and Plan: Subcutaneous Lovenox. Additional Plan famotidine for GI prophylaxis Tube feeding will be started once he is off pressors. Critical care time more than 35 minutes Due to a high probability of clinically significant, life threatening deterioration, the patient required my highest level of preparedness to intervene emergently and I personally spent this critical care time di
[2020-02-03] MEDS: POTASSIUM PHOS,M-BASIC-D-BASIC 20 MMOL in SODIUM CHLORIDE 0.9% IV 250 ML 62.5 MMOL IVPB (13:17)
[2020-02-03 13:29] LABS: SARS-CoV-2 RNA PCR Negative
[2020-02-03 15:39] LABS: Glucose Point of Care 83 (65-105)
[2020-02-03] MEDS: PROPOFOL IV EMULSION 100 ML 2.2 MG IV CONT (18:53)
[2020-02-03 19:05] LABS: Glucose Point of Care 92 (65-105)
[2020-02-03] MEDS: FAMOTIDINE 20 MG/2 ML VIAL IV PUSH (20:05)
[2020-02-03] MEDS: DORNASE ALFA INH SOLN 1 MG/ML 2.5 ML AMP 2.5 MG INHALATION (20:15)
[2020-02-04] VITALS (27 sets, daily range): BP systolic 81–110; BP diastolic 60–93; PULSE 50–86; RESP 13–25; TEMP 36.4–37.3; O2SAT 90–100
[2020-02-04 00:09] LABS: Glucose Point of Care 100 (65-105)
[2020-02-04] MEDS: CENTRAL LINE FLUSH 10 ML IV PUSH ×4 (04:35→22:18)
[2020-02-04 06:09] LABS: Alveolar/Arterial O2 Gradient 347.3 mmHg; Base Excess ABG 6.6 mEq/l (+/-2.0); Carboxyhemoglobin 0.5 % THb (0-2.0); Fractional Inspired Oxygen 65 %; HCO3 ABG 32.6 mEq/l (22.0-26.0); Methemoglobin ABG 0.3 %THb (0-1.5); Oxygen Content ABG 16.4 %vol (16.0-22.0); Oxygen Saturation ABG 90.7 % (95.0-100.0); Oxyhemoglobin 89.7 % THb (90.0-100.0); PCO2 ABG 52.2 mmHg (35.0-45.0); PO2 ABG 59.4 mmHg (80.0-100.0); PO2 FiO2 Ratio Arterial Blood 0.91 %; Reduced Hemoglobin 9.5 %THb (0-5.0); pH ABG 7.413 (7.350-7.450)
[2020-02-04 06:10] LABS: Arterial Blood Gas Vent Mode CMV; Arterial Blood Gas Ventilator rate 20 /MIN; Device VENTILATOR; Modified Allen's Test Pass; Site Drawn RIGHT RADIAL
[2020-02-04 06:11] LABS: Arterial Blood Gas PEEP 5 cmH2O; Arterial Blood Gas Tidal Volume 420 ml
[2020-02-04 06:37] LABS: Hematocrit 35.6 % (42.0-52.0); Mean Corpuscular HGB Conc 30.9 g/dl (32-36); Mean Corpuscular Hemoglobin 28.6 pg (26-34); Mean Corpuscular Volume 92.7 fl (80-100); Platelet Count Result 201 k/mm3 (150-375); Red Blood Count 3.84 M/mm3 (4.6-6.20); Red Cell Distribution Width 15.7 % (11.5-14.5); White Blood Count 15.1 K/mm3 (4.5-10.0)
[2020-02-04 06:50] LABS: Blood Urea Nitrogen 7 mg/dL (9-20); Calcium 8.4 mg/dL (8.4-10.2); Carbon Dioxide 39 mmol/L (22-30); Chloride 97 mmol/L (98-107); Estimated CRCL calculation 138 ml/min; Estimated Glomerular Filt Rate > 60; Glucose 92 mg/dL (75-110); Magnesium 1.9 mg/dL (1.6-2.3); Phosphorus 2.2 mg/dL (2.5-4.5); Potassium 4.1 mmol/L (3.4-5.0); Sodium 135 mmol/L (137-145)
[2020-02-04 08:54] LABS: Vancomycin Trough 7.7 ug/mL (10.0-20.0)
[2020-02-04] MEDS: NOREPINEPHRINE 8 MG/D5W 250 ML 8 MG/250 ML BAG 5.6 MG IV CONT (09:00)
[2020-02-04] MEDS: PROPOFOL IV EMULSION 100 ML 6.7 MG IV CONT (09:02)
[2020-02-04] MEDS: ENOXAPARIN 40 MG/0.4 ML SYRINGE SUB-Q (09:05)
[2020-02-04] MEDS: FAMOTIDINE 20 MG/2 ML VIAL IV PUSH ×2 (09:06→20:19)
[2020-02-04] MEDS: DORNASE ALFA INH SOLN 1 MG/ML 2.5 ML AMP 2.5 MG INHALATION ×2 (09:13→20:30)
--- NOTE | 2020-02-04 09:55 | P.PNIM_ITS ---
Progress Note: A&P Assessment and Plan (1) Acute on chronic respiratory failure with hypoxia and hypercapnia: Code(s): J96.21 - Acute and chronic respiratory failure with hypoxia; J96.22 - Acute and chronic respiratory failure with hypercapnia Status: Acute Assessment and Plan: * 02/01 intubated on arrival to the emergency department. * Vent management per zinc plate grainer. (2) Septic shock: Code(s): A41.9 - Sepsis, unspecified organism; R65.21 - Severe sepsis with septic shock Status: Acute Assessment and Plan: * Supported by fever, tachycardia, leukocytosis, and hypotension, refractory to IV fluid boluses. * Lactic acid levels within normal limits. * Blood cultures negative as of 02/03 (3) Right upper lobe pneumonia: Qualifiers: Pneumonia type: due to unspecified organism Qualified Code(s): J18.9 - Pneumonia, unspecified organism Code(s): J18.9 - Pneumonia, unspecified organism Status: Acute Assessment and Plan: * Continue azithromycin, cefepime, and vancomycin day 2 * Sputum culture pending * Urine antigens for strep, legionella pending * COVID-19 results NEGATIVE * Continue bronchodilators (4) COPD (chronic obstructive pulmonary disease): Qualifiers: COPD type: unspecified COPD Qualified Code(s): J44.9 - Chronic obstructive pulmonary disease, unspecified Code(s): J44.9 - Chronic obstructive pulmonary disease, unspecified Status: Acute Assessment and Plan: * Mild wheezing * 02/03 IV methylprednisolone added (5) Tobacco dependence: Code(s): F17.200 - Nicotine dependence, unspecified, uncomplicated Status: Acute Assessment and Plan: * Smoking cessation not addressed due to condition (6) Essential hypertension: Code(s): I10 - Essential (primary) hypertension Status: Acute Assessment and Plan: * Hold antihypertensives (7) Opioid abuse: Code(s): F11.10 - Opioid abuse, uncomplicated Status: Acute Assessment and Plan: * Monitor for s/sx w/d (8) Chronic systolic congestive heart failure: Code(s): I50.22 - Chronic systolic (congestive) heart failure Status: Acute Assessment and Plan: * Clinically not in acute failure * 02/03 I/0 negative 1600 past 24 hours Subjective Date/time seen: 02/04/20 09:55 Interval history: Admitted 02/01 with pneumonia and respiratory failure. Intubated. 02/03 remains on ventilator. Review of Systems Review of Systems: ROS unobtainable: Yes unobtainable due to medical condition Exam Narrative: Exam Narrative: HEENT: PERRL with small sluggish pupils, sclerae nonicteric, pharyngeal mucosa pink and intact NECK: No JVD CHEST: Scattered rhonchi and expiratory wheezes HEART: NL S1/S2, regular, no murmur ABDOMEN: BS+, soft, nontender, no mass, no bruits EXTREMITIES: No cyanosis, edema, or clubbing NEUROLOGIC: CN intact and symmetric to inspection. MUSCULOSKELETAL: Tone symmetric PSYCH: Sedated Objective Data Vital Signs Vital Signs: Vital Signs - 24 hr 02/03/20 10:00 02/03/20 12:00 02/03/20 12:55 Temperature 99.7 F H Pulse Rate 64 61 68 Respiratory Rate 20 20 Blood Pressure 95/69 L 77/61 L Pulse Oximetry 93 93 92 02/03/20 14:00 02/03/20 16:00 02/03/20 16:35
--- NOTE | 2020-02-04 09:55 | PM.IMPN ---
Progress Note: A&P Assessment and Plan (1) Acute on chronic respiratory failure with hypoxia and hypercapnia: Code(s): J96.21 - Acute and chronic respiratory failure with hypoxia; J96.22 - Acute and chronic respiratory failure with hypercapnia Status: Acute Assessment and Plan: 02/01 intubated on arrival to the emergency department. Vent management per group exercise class instructor. (2) Septic shock: Code(s): A41.9 - Sepsis, unspecified organism; R65.21 - Severe sepsis with septic shock Status: Acute Assessment and Plan: Supported by fever, tachycardia, leukocytosis, and hypotension, refractory to IV fluid boluses. Lactic acid levels within normal limits. Blood cultures negative as of 02/03 (3) Right upper lobe pneumonia: Qualifiers: Pneumonia type: due to unspecified organism Qualified Code(s): J18.9 - Pneumonia, unspecified organism Code(s): J18.9 - Pneumonia, unspecified organism Status: Acute Assessment and Plan: Continue azithromycin, cefepime, and vancomycin day 2 Sputum culture pending Urine antigens for strep, legionella pending COVID-19 results NEGATIVE Continue bronchodilators (4) COPD (chronic obstructive pulmonary disease): Qualifiers: COPD type: unspecified COPD Qualified Code(s): J44.9 - Chronic obstructive pulmonary disease, unspecified Code(s): J44.9 - Chronic obstructive pulmonary disease, unspecified Status: Acute Assessment and Plan: Mild wheezing 02/03 IV methylprednisolone added (5) Tobacco dependence: Code(s): F17.200 - Nicotine dependence, unspecified, uncomplicated Status: Acute Assessment and Plan: Smoking cessation not addressed due to condition (6) Essential hypertension: Code(s): I10 - Essential (primary) hypertension Status: Acute Assessment and Plan: Hold antihypertensives (7) Opioid abuse: Code(s): F11.10 - Opioid abuse, uncomplicated Status: Acute Assessment and Plan: Monitor for s/sx w/d (8) Chronic systolic congestive heart failure: Code(s): I50.22 - Chronic systolic (congestive) heart failure Status: Acute Assessment and Plan: Clinically not in acute failure 02/03 I/0 negative 1600 past 24 hours Subjective Date/time seen: 02/04/20 09:55 Interval history: Admitted 02/01 with pneumonia and respiratory failure. Intubated. 02/03 remains on ventilator. Review of Systems Review of Systems: ROS unobtainable: Yes unobtainable due to medical condition Exam Narrative: Exam Narrative: HEENT: PERRL with small sluggish pupils, sclerae nonicteric, pharyngeal mucosa pink and intact NECK: No JVD CHEST: Scattered rhonchi and expiratory wheezes HEART: NL S1/S2, regular, no murmur ABDOMEN: BS+, soft, nontender, no mass, no bruits EXTREMITIES: No cyanosis, edema, or clubbing NEUROLOGIC: CN intact and symmetric to inspection. MUSCULOSKELETAL: Tone symmetric PSYCH: Sedated Objective Data Vital Signs Vital Signs: Vital Signs - 24 hr 02/03/20 10:00 02/03/20 12:00 02/03/20 12:55 Temperature 99.7 F H Pulse Rate 64 61 68 Respiratory Rate 20 20 Blood Pressure 95/69 L 77/61 L Pulse Oximetry 93 93 92 02/03/20 14:00 02/03/20 16:00 02/03/20 16:35 Temperature 99.9 F H Pulse Rate 64 64 66 Respiratory Rate 20 20 Blood Pressure 93/37 L 92/64 L Pulse Oximetry 96 95 97 02/03/20 17:16 02/03/20 18:00 02/03/20 20:00 Temperature 100.6 F H Pulse Rate 68 70 72 Respiratory Rate 18 20 Blood Pressure 89/71 L 108/76 Pulse Oximetry 92 20 L 92 02/03/20 20:15 02/03/20 20:32 02/03/20 20:39 Temperature Pulse Rate 70 62 61 Respiratory Rate 20 20 Blood Pressure Pulse Oximetry 94 02/03/20 22:00 02/03/20 23:02 02/03/20 23:52 Temperature 98.8 F 97.8 F Pulse Rate 53 L 63 54 L Respiratory Rate 20 20 Blood Pressure 116/78 112/77 Pulse Oximetry 94 95 94
--- NOTE | 2020-02-04 11:54 | WPDINTPN ---
Progress Note: A&P Assessment and Plan (1) Acute on chronic respiratory failure with hypoxia and hypercapnia: Code(s): J96.21 - Acute and chronic respiratory failure with hypoxia; J96.22 - Acute and chronic respiratory failure with hypercapnia Status: Acute Assessment and Plan: Noncompliant to home oxygen at baseline. Had acute hypercarbic respiratory failure at presentation with acute on chronic hypoxic respiratory failure with oxygen saturation in mid 40s on room air. Intubated on 02/01 at the time of presentation to emergency department. Continue mechanical ventilation with current settings. He is requiring FiO2 of 50% and PEEP of 5. Lower tidal volume strategies. He was on 35% FiO2 but PO2 was 59. Will increase FiO2 to 50%. Not suitable for spontaneous breathing trial today. If he is off pressor by tomorrow and rest of the hemodynamics are stable then may potentially try SBT trial in a.m.. Monitor ABG and chest x-ray. Currently sedated with fentanyl and Propofol. Versed has been weaned off. Daily sedation vacation trial. (2) Pneumonia: Code(s): J18.9 - Pneumonia, unspecified organism Status: Acute Assessment and Plan: Chest x-ray is suggestive of airspace disease Bilaterally with more on the right side. Follow cultures. Does seem to have moderate amount of stick mucoid secretions. Continue cefepime, vancomycin and azithromycin. Deescalate antibiotics depending on cultures. (3) Suspected COVID-19 virus infection: Code(s): R68.89 - Other general symptoms and signs Status: Acute Assessment and Plan: COVID19 testing is reported as negative. droplet and contact precautions has been discontinued. (4) Septic shock: Code(s): A41.9 - Sepsis, unspecified organism; R65.21 - Severe sepsis with septic shock Status: Acute Assessment and Plan: Currently requiring Levophed of 3 mcg. Wean pressor if tolerated. (5) Encephalopathy: Code(s): G93.40 - Encephalopathy, unspecified Status: Acute Assessment and Plan: Likely metabolic in nature. Had acute hypercarbic respiratory failure yesterday with pCO2 of 85. Currently sedated with fentanyl and propofol. Daily sedation vacation trials. (6) COPD (chronic obstructive pulmonary disease): Qualifiers: COPD type: unspecified COPD Qualified Code(s): J44.9 - Chronic obstructive pulmonary disease, unspecified Code(s): J44.9 - Chronic obstructive pulmonary disease, unspecified Status: Acute Assessment and Plan: Diminished breath sounds bilaterally with some occasional wheezing. I will start him on steroids. I will start him on Bronchodilators as well. (7) HTN (hypertension): Qualifiers: Hypertension type: essential hypertension Qualified Code(s): I10 - Essential (primary) hypertension Code(s): I10 - Essential (primary) hypertension Status: Acute Assessment and Plan: Antihypertensive medications are on hold. (8) CHF (congestive heart failure): Qualifiers: Heart failure chronicity: chronic Heart failure type: systolic Qualified Code(s): I50.22 - Chronic systolic (congestive) heart failure Code(s): I50.9 - Heart failure, unspecified Status: Acute Assessment and Plan: Currently seems euvolemic. Hold off any Lasix. Strict intake output record. Will diurese him gently once he is off pressors. (9) DVT prophylaxis: Code(s): Z29.9 - Encounter for prophylactic measures, unspecified Status: Acute Assessment and Plan: Subcutaneous Lovenox. Additional Plan Famotidine for GI prophylaxis Tube feeding will be started once he is off pressors. Critical care time more than 35 minutes Due to a high probability of clinically significant, life threatening deterioration, the patient required my highest level of
[2020-02-04 13:04] LABS: Glucose Point of Care 85 (65-105)
[2020-02-04] MEDS: POTASSIUM PHOS,M-BASIC-D-BASIC 20 MMOL in SODIUM CHLORIDE 0.9% IV 250 ML 62.5 MMOL IVPB (14:18)
[2020-02-04] MEDS: MAGNESIUM SULF 4 GM/WATER100ML 4 GM/100 ML BAG IVPB (14:18)
[2020-02-04] MEDS: methylPREDNISolone SOD SUCC 125 MG VIAL 60 MG IV PUSH ×2 (14:19→22:17)
[2020-02-04] MEDS: ALBUTEROL SULFATE NEB 2.5 MG/0.5 ML INH INHALATION ×2 (14:40→20:30)
[2020-02-04 17:32] LABS: Glucose Point of Care 94 (65-105)
[2020-02-05] VITALS (28 sets, daily range): BP systolic 98–150; BP diastolic 58–81; PULSE 48–82; RESP 18–23; TEMP 36.6–37.1; O2SAT 94–100; BMI 26.1
[2020-02-05] LABS: Glucose Point of Care 126 (65-105)
[2020-02-05] MEDS: ALBUTEROL SULFATE NEB 2.5 MG/0.5 ML INH INHALATION ×4 (02:12→20:10)
[2020-02-05] MEDS: PROPOFOL IV EMULSION 100 ML 4.5 MG IV CONT (02:49)
[2020-02-05 03:54] LABS: Alveolar/Arterial O2 Gradient 193.4 mmHg; Base Excess ABG 4.8 mEq/l (+/-2.0); Carboxyhemoglobin 0.3 % THb (0-2.0); Fractional Inspired Oxygen 50 %; HCO3 ABG 31.8 mEq/l (22.0-26.0); Methemoglobin ABG 0.3 %THb (0-1.5); Oxygen Content ABG 17.1 %vol (16.0-22.0); Oxyhemoglobin 95.7 % THb (90.0-100.0); PCO2 ABG 58.4 mmHg (35.0-45.0); PO2 ABG 97.4 mmHg (80.0-100.0); PO2 FiO2 Ratio Arterial Blood 1.95 %; Reduced Hemoglobin 3.7 %THb (0-5.0); Total Hemoglobin 12.6 g/dL (12.0-18.0); pH ABG 7.354 (7.350-7.450)
[2020-02-05 03:55] LABS: Arterial Blood Gas PEEP 5 cmH2O; Arterial Blood Gas Tidal Volume 420 ml; Arterial Blood Gas Vent Mode CMV; Arterial Blood Gas Ventilator rate 20 /MIN; Device VENTILATOR; Modified Allen's Test Pass; Site Drawn RIGHT RADIAL
[2020-02-05 04:58] LABS: Hematocrit 33.9 % (42.0-52.0); Hemoglobin 10.6 g/dL (14.0-18.0); Mean Corpuscular HGB Conc 31.3 g/dl (32-36); Mean Corpuscular Volume 89.7 fl (80-100); Mean Platelet Volume 10.4 fl (7.4-10.4); Platelet Count Result 199 k/mm3 (150-375); Red Blood Count 3.78 M/mm3 (4.6-6.20); White Blood Count 5.9 K/mm3 (4.5-10.0)
[2020-02-05 05:15] LABS: Blood Urea Nitrogen 13 mg/dL (9-20); Calcium 7.9 mg/dL (8.4-10.2); Carbon Dioxide 36 mmol/L (22-30); Chloride 96 mmol/L (98-107); Estimated CRCL calculation 138 ml/min; Estimated Glomerular Filt Rate > 60; Glucose 129 mg/dL (75-110); Magnesium 2.4 mg/dL (1.6-2.3); Phosphorus 3.3 mg/dL (2.5-4.5); Potassium 4.6 mmol/L (3.4-5.0); Sodium 133 mmol/L (137-145)
[2020-02-05] MEDS: methylPREDNISolone SOD SUCC 125 MG VIAL 60 MG IV PUSH ×3 (05:30→20:01)
[2020-02-05] MEDS: CENTRAL LINE FLUSH 10 ML IV PUSH ×4 (05:31→20:01)
[2020-02-05] MEDS: MIDAZOLAM HCL 2 MG/2 ML VIAL IV PUSH ×3 (08:17→21:54)
[2020-02-05] MEDS: DORNASE ALFA INH SOLN 1 MG/ML 2.5 ML AMP 2.5 MG INHALATION ×2 (08:19→20:10)
[2020-02-05] MEDS: FAMOTIDINE 20 MG/2 ML VIAL IV PUSH ×2 (08:20→20:01)
[2020-02-05] MEDS: ENOXAPARIN 40 MG/0.4 ML SYRINGE SUB-Q (08:20)
--- NOTE | 2020-02-05 10:23 | P.PNIM_ITS ---
Progress Note: A&P Assessment and Plan (1) Acute on chronic respiratory failure with hypoxia and hypercapnia: Code(s): J96.21 - Acute and chronic respiratory failure with hypoxia; J96.22 - Acute and chronic respiratory failure with hypercapnia Status: Acute Assessment and Plan: * 02/01 intubated on arrival to the emergency department. * Wean as tolerated (2) Septic shock: Code(s): A41.9 - Sepsis, unspecified organism; R65.21 - Severe sepsis with septic shock Status: Acute Assessment and Plan: * Supported by fever, tachycardia, leukocytosis, and hypotension, refractory to IV fluid boluses. * Lactic acid levels within normal limits. * Blood cultures negative as of 02/04 (3) Right upper lobe pneumonia: Qualifiers: Pneumonia type: due to unspecified organism Qualified Code(s): J18.9 - Pneumonia, unspecified organism Code(s): J18.9 - Pneumonia, unspecified organism Status: Acute Assessment and Plan: * Continue azithromycin, cefepime day 3 * Sputum culture with pseudomonas aeruginosa, enterobacter, yeast * Urine antigens for strep, legionella pending * COVID-19 results NEGATIVE * Continue bronchodilators (4) COPD (chronic obstructive pulmonary disease): Qualifiers: COPD type: unspecified COPD Qualified Code(s): J44.9 - Chronic obst ructive pulmonary disease, unspecified Code(s): J44.9 - Chronic obstructive pulmonary disease, unspecified Status: Acute Assessment and Plan: * Mild wheezing * 02/03 IV methylprednisolone added (5) Tobacco dependence: Code(s): F17.200 - Nicotine dependence, unspecified, uncomplicated Status: Acute Assessment and Plan: * Smoking cessation not addressed due to condition (6) Essential hypertension: Code(s): I10 - Essential (primary) hypertension Status: Acute Assessment and Plan: * Hold antihypertensives (7) Opioid abuse: Code(s): F11.10 - Opioid abuse, uncomplicated Status: Acute Assessment and Plan: * Monitor for s/sx w/d (8) Chronic systolic congestive heart failure: Code(s): I50.22 - Chronic systolic (congestive) heart failure Status: Acute Assessment and Plan: * Clinically not in acute failure * 02/03 I/0 negative 1600 past 24 hours Subjective Date/time seen: 02/05/20 10:23 Interval history: Admitted 02/01 with pneumonia and respiratory failure. Intubated. 02/04 remains on ventilator. Review of Systems Review of Systems: ROS unobtainable: Yes unobtainable due to medical condition Exam Narrative: Exam Narrative: HEENT: PERRL, sclerae nonicteric, pharyngeal mucosa pink and intact NECK: No JVD CHEST: Scattered rhonchi HEART: NL S1/S2, regular, no murmur ABDOMEN: BS+, soft, nontender, no mass, no bruits EXTREMITIES: No cyanosis, edema, or clubbing NEUROLOGIC: CN intact and symmetric to inspection. MUSCULOSKELETAL: Tone symmetric PSYCH: Alert. Follows simple commands. Objective Data Vital Signs Vital Signs: Vital Signs - 24 hr 02/04/20 11:17 02/04/20 12:00 02/04/20 13:52 Temperature 98.2 F Pulse Rate 50 L 56 L 67 Respiratory Rate 16 Blood Pressure 100/68 Pulse Oximetry 99 100 95 02/04/20 14:00 02/04/20 14:40 02/04/20 14:41 Temperature
--- NOTE | 2020-02-05 10:23 | PM.IMPN ---
Progress Note: A&P Assessment and Plan (1) Acute on chronic respiratory failure with hypoxia and hypercapnia: Code(s): J96.21 - Acute and chronic respiratory failure with hypoxia; J96.22 - Acute and chronic respiratory failure with hypercapnia Status: Acute Assessment and Plan: 02/01 intubated on arrival to the emergency department. Wean as tolerated (2) Septic shock: Code(s): A41.9 - Sepsis, unspecified organism; R65.21 - Severe sepsis with septic shock Status: Acute Assessment and Plan: Supported by fever, tachycardia, leukocytosis, and hypotension, refractory to IV fluid boluses. Lactic acid levels within normal limits. Blood cultures negative as of 02/04 (3) Right upper lobe pneumonia: Qualifiers: Pneumonia type: due to unspecified organism Qualified Code(s): J18.9 - Pneumonia, unspecified organism Code(s): J18.9 - Pneumonia, unspecified organism Status: Acute Assessment and Plan: Continue azithromycin, cefepime day 3 Sputum culture with pseudomonas aeruginosa, enterobacter, yeast Urine antigens for strep, legionella pending COVID-19 results NEGATIVE Continue bronchodilators (4) COPD (chronic obstructive pulmonary disease): Qualifiers: COPD type: unspecified COPD Qualified Code(s): J44.9 - Chronic obstructive pulmonary disease, unspecified Code(s): J44.9 - Chronic obstructive pulmonary disease, unspecified Status: Acute Assessment and Plan: Mild wheezing 02/03 IV methylprednisolone added (5) Tobacco dependence: Code(s): F17.200 - Nicotine dependence, unspecified, uncomplicated Status: Acute Assessment and Plan: Smoking cessation not addressed due to condition (6) Essential hypertension: Code(s): I10 - Essential (primary) hypertension Status: Acute Assessment and Plan: Hold antihypertensives (7) Opioid abuse: Code(s): F11.10 - Opioid abuse, uncomplicated Status: Acute Assessment and Plan: Monitor for s/sx w/d (8) Chronic systolic congestive heart failure: Code(s): I50.22 - Chronic systolic (congestive) heart failure Status: Acute Assessment and Plan: Clinically not in acute failure 02/03 I/0 negative 1600 past 24 hours Subjective Date/time seen: 02/05/20 10:23 Interval history: Admitted 02/01 with pneumonia and respiratory failure. Intubated. 02/04 remains on ventilator. Review of Systems Review of Systems: ROS unobtainable: Yes unobtainable due to medical condition Exam Narrative: Exam Narrative: HEENT: PERRL, sclerae nonicteric, pharyngeal mucosa pink and intact NECK: No JVD CHEST: Scattered rhonchi HEART: NL S1/S2, regular, no murmur ABDOMEN: BS+, soft, nontender, no mass, no bruits EXTREMITIES: No cyanosis, edema, or clubbing NEUROLOGIC: CN intact and symmetric to inspection. MUSCULOSKELETAL: Tone symmetric PSYCH: Alert. Follows simple commands. Objective Data Vital Signs Vital Signs: Vital Signs - 24 hr 02/04/20 11:17 02/04/20 12:00 02/04/20 13:52 Temperature 98.2 F Pulse Rate 50 L 56 L 67 Respiratory Rate 16 Blood Pressure 100/68 Pulse Oximetry 99 100 95 02/04/20 14:00 02/04/20 14:40 02/04/20 14:41 Temperature Pulse Rate 53 L 57 L 57 L Respiratory Rate 18 20 Blood Pressure 81/60 L Pulse Oximetry 100 95 02/04/20 14:47 02/04/20 16:00 02/04/20 17:19 Temperature 98.4 F Pulse Rate 58 L 60 66 Respiratory Rate 20 20 Blood Pressure 108/62 Pulse Oximetry 100 98 02/04/20 18:00 02/04/20 20:00 02/04/20 20:31 Temperature 97.6 F Pulse Rate 55 L 51 L 55 L Respiratory Rate 20 20 21 H Blood Pressure 100/63 106/63 Pulse Oximetry 98 97 02/04/20 20:37 02/04/20 21:21 02/04/20 22:00 Temperature Pulse Rate 57 L 56 L 52 L Respiratory Rate 21 H 20 Blood Pressure 101/64 Pulse Oximetry 98 98 02/04/20 23:10 02/05/20 00
[2020-02-05] MEDS: PROPOFOL IV EMULSION 100 ML 15.6 MG IV CONT ×2 (12:22→18:33)
[2020-02-05 12:28] LABS: Glucose Point of Care 119 (65-105)
--- NOTE | 2020-02-05 13:10 | WPDINTPN ---
Progress Note: A&P Assessment and Plan (1) Acute on chronic respiratory failure with hypoxia and hypercapnia: Code(s): J96.21 - Acute and chronic respiratory failure with hypoxia; J96.22 - Acute and chronic respiratory failure with hypercapnia Status: Acute Assessment and Plan: patient presented with shortness of breath, encephalopathy, found to be in hypercapnic respiratory failure, was intubated and placed on mechanical ventilation on 02/02/2020. Patient also is noncompliant with home oxygen at baseline. Has been previously admitted to [place] ICU in October 2019. Where he was intubated for similar issues. - Continue CMV mode of ventilation, will increase tidal volumes, decrease FiO2 to maintain O2 sats greater than 90% - will wean FiO2 - Monitor ABG and chest x-ray. - sedated with fentanyl and propofol infusion, maintain RASS of 0 to -2. Daily sedation vacation (2) Pneumonia: Code(s): J18.9 - Pneumonia, unspecified organism Status: Acute Assessment and Plan: Chest x-ray is suggestive of airspace disease bilaterally with more on the right side. - sputum cultures growing Pseudomonas and Enterobacter, sensitivities pending - blood cultures are negative - Continue cefepime, and azithromycin, will discontinue vancomycin as blood cultures are negative. (3) Suspected COVID-19 virus infection: Code(s): R68.89 - Other general symptoms and signs Status: Acute Assessment and Plan: COVID19 testing is reported as negative. droplet and contact precautions has been discontinued. (4) Septic shock: Code(s): A41.9 - Sepsis, unspecified organism; R65.21 - Severe sepsis with septic shock Status: Acute Assessment and Plan: Off Levophed since 02/04/2020 at 8:18pm (5) Encephalopathy: Code(s): G93.40 - Encephalopathy, unspecified Status: Acute Assessment and Plan: Likely metabolic in nature. Had acute hypercarbic respiratory failure yesterday with pCO2 of 85. - currently sedated but opens his eyes and nods to questions and follows simple commands appropriately (6) COPD (chronic obstructive pulmonary disease): Qualifiers: COPD type: unspecified COPD Qualified Code(s): J44.9 - Chronic obstructive pulmonary disease, unspecified Code(s): J44.9 - Chronic obstructive pulmonary disease, unspecified Status: Acute Assessment and Plan: COPD exacerbation, continue steroids, bronchodilators and antibiotics for now (7) HTN (hypertension): Qualifiers: Hypertension type: essential hypertension Qualified Code(s): I10 - Essential (primary) hypertension Code(s): I10 - Essential (primary) hypertension Status: Acute Assessment and Plan: Antihypertensive medications are on hold. (8) CHF (congestive heart failure): Qualifiers: Heart failure type: systolic Heart failure chronicity: chronic Qualified Code(s): I50.22 - Chronic systolic (congestive) heart failure Code(s): I50.9 - Heart failure, unspecified Status: Acute Assessment and Plan: Currently seems euvolemic. Hold off any Lasix. Strict intake output record. - will diurese if necessary (9) DVT prophylaxis: Code(s): Z29.9 - Encounter for prophylactic measures, unspecified Status: Acute Assessment and Plan: DVT prophylaxis; Lovenox stress ulcer prophylaxis: Famotidine (10) Dietary counseling and surveillance: Code(s): Z71.3 - Dietary counseling and surveillance Status: Acute Assessment and Plan: will start tube feeds Additional Plan code status: Full code Critical care time spent: 36 minutes Due to a high probability of clinically significant, life threatening deterioration, the patient required my highest level of preparedness to intervene emergently and I personally spent this critical care time directly and pers
[2020-02-05 16:36] LABS: Pneumococcal Antigen Urine Not Detected (Not Detected)
[2020-02-05 16:53] LABS: Glucose Point of Care 120 (65-105)
[2020-02-06] VITALS (25 sets, daily range): BP systolic 101–163; BP diastolic 71–102; PULSE 53–120; RESP 12–24; TEMP 36.8–37.2; O2SAT 91–100
[2020-02-06] MEDS: PROPOFOL IV EMULSION 100 ML 17.8 MG IV CONT ×2 (00:01→04:55)
[2020-02-06 00:23] LABS: Glucose Point of Care 171 (65-105)
[2020-02-06] MEDS: ALBUTEROL SULFATE NEB 2.5 MG/0.5 ML INH INHALATION ×4 (02:24→20:42)
[2020-02-06] MEDS: methylPREDNISolone SOD SUCC 125 MG VIAL 60 MG IV PUSH ×3 (04:56→20:32)
[2020-02-06] MEDS: CENTRAL LINE FLUSH 10 ML IV PUSH ×4 (04:57→20:32)
[2020-02-06 05:02] LABS: Hematocrit 34.2 % (42.0-52.0); Hemoglobin 10.7 g/dL (14.0-18.0); Mean Corpuscular HGB Conc 31.3 g/dl (32-36); Mean Corpuscular Hemoglobin 28.1 pg (26-34); Mean Corpuscular Volume 89.8 fl (80-100); Platelet Count Result 244 k/mm3 (150-375); Red Blood Count 3.81 M/mm3 (4.6-6.20); Red Cell Distribution Width 15.2 % (11.5-14.5); White Blood Count 5.7 K/mm3 (4.5-10.0)
[2020-02-06 05:05] LABS: Alveolar/Arterial O2 Gradient 129.2 mmHg; Base Excess ABG 5.2 mEq/l (+/-2.0); Carboxyhemoglobin 0.3 % THb (0-2.0); Fractional Inspired Oxygen 40 %; HCO3 ABG 30.7 mEq/l (22.0-26.0); Methemoglobin ABG 0.3 %THb (0-1.5); Oxygen Content ABG 16.3 %vol (16.0-22.0); Oxygen Saturation ABG 97.6 % (95.0-100.0); PO2 ABG 99.7 mmHg (80.0-100.0); PO2 FiO2 Ratio Arterial Blood 2.49 %; Reduced Hemoglobin 3.4 %THb (0-5.0); pH ABG 7.415 (7.350-7.450)
[2020-02-06 05:06] LABS: Device VENTILATOR; Modified Allen's Test Pass; Site Drawn RIGHT RADIAL
[2020-02-06 05:07] LABS: Arterial Blood Gas PEEP 5 cmH2O; Arterial Blood Gas Pressure Support 0 cmH2O; Arterial Blood Gas Tidal Volume 460 ml; Arterial Blood Gas Vent Mode CMV; Arterial Blood Gas Ventilator rate 20 /MIN
[2020-02-06 06:02] LABS: Glucose Point of Care 126 (65-105)
[2020-02-06 06:21] LABS: Blood Urea Nitrogen 22 mg/dL (9-20); Calcium 8.4 mg/dL (8.4-10.2); Carbon Dioxide 35 mmol/L (22-30); Chloride 97 mmol/L (98-107); Estimated CRCL calculation 138 ml/min; Estimated Glomerular Filt Rate > 60; Glucose 131 mg/dL (75-110); Magnesium 2.4 mg/dL (1.6-2.3); Phosphorus 3.3 mg/dL (2.5-4.5); Potassium 4.4 mmol/L (3.4-5.0); Sodium 134 mmol/L (137-145)
[2020-02-06] MEDS: FUROSEMIDE INJ 40 MG/4 ML VIAL IV PUSH (08:18)
[2020-02-06] MEDS: FAMOTIDINE 20 MG/2 ML VIAL IV PUSH ×2 (08:29→20:31)
[2020-02-06] MEDS: ENOXAPARIN 40 MG/0.4 ML SYRINGE SUB-Q (08:29)
[2020-02-06] MEDS: DORNASE ALFA INH SOLN 1 MG/ML 2.5 ML AMP 2.5 MG INHALATION ×2 (08:35→20:43)
--- NOTE | 2020-02-06 11:17 | PCDIET ---
Nutrition Follow-Up Complete: Nutrition Diagnosis: Inadequate oral intake related to oral intubation as evidenced by NPO status, need for enteral feedings. Nutrition Goal: Patient to meet estimated nutritional needs. Goal in progress. Patient previously tolerating Jevity 1.2 at 45mL/hr. Tube feedings currently on hold for SBT. Recommend volume based feeding protocol if unable to extubate today. Last recorded weight is 75.7 kg which is stable. Bowel Motility: No documented bowel movements. Labs Reviewed: Glu (131), BUN (22), Cr (0.4), Mg (2.4), Na (134) Meds Noted: Albuterol, Zithromax, Cefepime, Levophed, Pepcid, Versed, Fentanyl, Solu Medrol, s/p Lasix Additional Notes: No documented skin breakdown. Would consider addition of medication to promote BM if/when medically appropriate. Nutrition Monitoring and Evaluation: Follow up every Wednesday/Wednesday. Follow daily in ICU rounds.
--- NOTE | 2020-02-06 12:18 | WPDINTPN ---
Progress Note: A&P Assessment and Plan (1) Acute on chronic respiratory failure with hypoxia and hypercapnia: Code(s): J96.21 - Acute and chronic respiratory failure with hypoxia; J96.22 - Acute and chronic respiratory failure with hypercapnia Status: Acute Assessment and Plan: patient presented with shortness of breath, encephalopathy, found to be in hypercapnic respiratory failure, was intubated and placed on mechanical ventilation on 02/02/2020. Patient also is noncompliant with home oxygen at baseline. Has been previously admitted to [place] ICU in October 2019. Where he was intubated for similar issues. - Continue CMV mode of ventilation, will increase tidal volumes, decrease FiO2 to maintain O2 sats greater than 90% - Monitor ABG and chest x-ray. - Decrease sedation, start precedex and will place pt on SBT, and evaluate for extubation (2) Pneumonia: Qualifiers: Pneumonia type: due to Pseudomonas Laterality: unspecified laterality Lung location: unspecified part of lung Qualified Code(s): J15.1 - Pneumonia due to Pseudomonas Code(s): J18.9 - Pneumonia, unspecified organism Status: Acute Assessment and Plan: Chest x-ray is suggestive of airspace disease bilaterally with more on the right side. - sputum cultures growing Pseudomonas and Enterobacter, pansensitive - blood cultures are negative - Continue cefepime, and azithromycin, - vancomycin discotinued on 02/04 (3) Suspected COVID-19 virus infection: Code(s): R68.89 - Other general symptoms and signs Status: Acute Assessment and Plan: COVID19 testing is reported as negative. droplet and contact precautions has been discontinued. (4) Septic shock: Code(s): A41.9 - Sepsis, unspecified organism; R65.21 - Severe sepsis with septic shock Status: Acute Assessment and Plan: Off Levophed since 02/04/2020 at 8:18pm (5) Encephalopathy: Code(s): G93.40 - Encephalopathy, unspecified Status: Acute Assessment and Plan: Likely metabolic in nature. Had acute hypercarbic respiratory failure yesterday with pCO2 of 85. - currently sedated but opens his eyes and nods to questions and follows simple commands appropriately (6) COPD (chronic obstructive pulmonary disease): Qualifiers: COPD type: unspecified COPD Qualified Code(s): J44.9 - Chronic obstructive pulmonary disease, unspecified Code(s): J44.9 - Chronic obstructive pulmonary disease, unspecified Status: Acute Assessment and Plan: COPD exacerbation, continue steroids, bronchodilators and antibiotics for now (7) HTN (hypertension): Qualifiers: Hypertension type: essential hypertension Qualified Code(s): I10 - Essential (primary) hypertension Code(s): I10 - Essential (primary) hypertension Status: Acute Assessment and Plan: Antihypertensive medications are on hold. (8) CHF (congestive heart failure): Qualifiers: Heart failure type: systolic Heart failure chronicity: chronic Qualified Code(s): I50.22 - Chronic systolic (congestive) heart failure Code(s): I50.9 - Heart failure, unspecified Status: Acute Assessment and Plan: Currently seems euvolemic. Hold off any Lasix. Strict intake output record. - will diurese if necessary (9) Dietary counseling and surveillance: Code(s): Z71.3 - Dietary counseling and surveillance Status: Acute Assessment and Plan: HOLD TUBE FEEDS (10) DVT prophylaxis: Code(s): Z29.9 - Encounter for prophylactic measures, unspecified Status: Acute Assessment and Plan: DVT prophylaxis; Lovenox stress ulcer prophylaxis: Famotidine Additional Plan code status: Full code Critical care time spent: 32 minutes Due to a high probability of clinically significant, life threatening deterioration, the patient req
[2020-02-06 15:09] LABS: Legionella pneumophila Ag Ur Not Detected (Not Detected)
[2020-02-06 15:49] LABS: Glucose Point of Care 118 (65-105)
--- NOTE | 2020-02-06 17:33 | PM.IMPN ---
Progress Note: A&P Assessment and Plan (1) Acute on chronic respiratory failure with hypoxia and hypercapnia: Code(s): J96.21 - Acute and chronic respiratory failure with hypoxia; J96.22 - Acute and chronic respiratory failure with hypercapnia Status: Acute Assessment and Plan: 02/01 intubated on arrival to the emergency department. Self-extubated today and O2 sat 92% on 3 L (2) Septic shock: Code(s): A41.9 - Sepsis, unspecified organism; R65.21 - Severe sepsis with septic shock Status: Acute Assessment and Plan: Supported by fever, tachycardia, leukocytosis, and hypotension, refractory to IV fluid boluses. Lactic acid levels within normal limits. Blood cultures negative all secondary to pneumonia (3) Right upper lobe pneumonia: Qualifiers: Pneumonia type: due to unspecified organism Qualified Code(s): J18.9 - Pneumonia, unspecified organism Code(s): J18.9 - Pneumonia, unspecified organism Status: Acute Assessment and Plan: Continue azithromycin, cefepime day 4 Sputum culture with pseudomonas aeruginosa, enterobacter, yeast Urine antigens for strep negative COVID-19 results NEGATIVE Continue bronchodilators (4) COPD (chronic obstructive pulmonary disease): Qualifiers: COPD type: unspecified COPD Qualified Code(s): J44.9 - Chronic obstructive pulmonary disease, unspecified Code(s): J44.9 - Chronic obstructive pulmonary disease, unspecified Status: Acute Assessment and Plan: Mild wheezing 02/03 IV methylprednisolone added and will taper soon (5) Tobacco dependence: Code(s): F17.200 - Nicotine dependence, unspecified, uncomplicated Status: Acute Assessment and Plan: Smoking cessation not addressed due to condition (6) Essential hypertension: Code(s): I10 - Essential (primary) hypertension Status: Acute Assessment and Plan: Blood pressure rebounding off pressors home will restart amlodipine (7) Opioid abuse: Code(s): F11.10 - Opioid abuse, uncomplicated Status: Acute Assessment and Plan: Monitor for s/sx w/d (8) Chronic systolic congestive heart failure: Code(s): I50.22 - Chronic systolic (congestive) heart failure Status: Acute Assessment and Plan: Clinically not in acute failure 02/03 I/0 negative 1600 past 24 hours Probable restart Hernandez in a.m. Subjective Date/time seen: 02/06/20 17:33 Interval history: Date of visit 02/05. Admitted 02/01 with pneumonia and respiratory failure. Intubated. 02/05 a.m. remained on ventilator and this p.m. self-extubated and doing fine Wants to eat. Exam Narrative: Exam Narrative: Blood pressure 154/94 pulse is 66 now saturating 92% on 3 L nasal cannula afebrile HEENT: PERRL, sclerae nonicteric, NECK: No JVD CHEST: Scattered rhonchi with decreased breath sounds HEART: NL S1/S2, regular, no murmur ABDOMEN: BS+, soft, nontender, EXTREMITIES: No , edema, NEUROLOGIC: CN intact and symmetric to inspection. With no focal deficits and more appropriate this afternoon PSYCH: Alert. Follows simple commands. Objective Data Vital Signs Vital Signs: Vital Signs - 24 hr 02/05/20 18:00 02/05/20 20:00 02/05/20 20:10 Temperature 37.1 C Pulse Rate 63 56 L 60 Respiratory Rate 20 20 20 Blood Pressure 107/73 112/68 Pulse Oximetry 98 100 98 02/05/20 20:30 02/05/20 22:00 02/05/20 23:26 Temperature Pulse Rate 64 70 63 Respiratory Rate 20 20 Blood Pressure 110/71 Pulse Oximetry 98 94 02/06/20 00:00 02/06/20 02:00 02/06/20 02:24 Temperature 37.1 C Pulse Rate 70 53 L 59 L Respiratory Rate 20 20 20 Blood Pressure 128/88 101/71 Pulse Oximetry 100 96 98 02/06/20 04:00 02/06/20 04:27 02/06/20 06:00 Temperature 37.1 C Pulse Rate 64 87 66 Respiratory Rate 20 20 Blood Pressure 131/73 118/75 Pulse Oximetry 99 98 96 02/06/20 08:00 04
[2020-02-06] MEDS: AMLODIPINE BESYLATE 5 MG TABLET PO (17:56)
[2020-02-06 18:21] LABS: Glucose Point of Care 125 (65-105)
[2020-02-07] VITALS (19 sets, daily range): BP systolic 118–155; BP diastolic 55–84; PULSE 56–94; RESP 14–23; TEMP 36.4–37.2; O2SAT 90–99
[2020-02-07] MEDS: ALBUTEROL SULFATE NEB 2.5 MG/0.5 ML INH INHALATION ×4 (02:08→20:32)
[2020-02-07 04:45] LABS: Hemoglobin 11.6 g/dL (14.0-18.0); Immature Granulocyte Absolute 0.01 K/mm3 (0.00-0.031); Immature Granulocyte Percent A 0.3 % (0-0.5); Lymphocytes Absolute Auto 0.55 K/mm3 (0.9-3.2); Mean Corpuscular HGB Conc 31.4 g/dl (32-36); Mean Corpuscular Hemoglobin 27.6 pg (26-34); Mean Corpuscular Volume 87.9 fl (80-100); Mean Platelet Volume 10.2 fl (7.4-10.4); Monocytes Absolute Auto 0.4 K/mm3 (0.1-0.6); Monocytes Percent Auto 9.9 % (2.6-8.5); Neutrophils Percent Auto 75.8 % (45.5-73.1); Platelet Count Result 206 k/mm3 (150-375); Red Blood Count 4.21 M/mm3 (4.6-6.20); White Blood Count 3.9 K/mm3 (4.5-10.0)
[2020-02-07 05:00] LABS: Blood Urea Nitrogen 24 mg/dL (9-20); Calcium 8.4 mg/dL (8.4-10.2); Carbon Dioxide 36 mmol/L (22-30); Chloride 96 mmol/L (98-107); Estimated CRCL calculation 96 ml/min; Estimated Glomerular Filt Rate > 60; Glucose 135 mg/dL (75-110); Magnesium 2.3 mg/dL (1.6-2.3); Phosphorus 3.4 mg/dL (2.5-4.5); Potassium 4.2 mmol/L (3.4-5.0); Sodium 136 mmol/L (137-145)
[2020-02-07] MEDS: methylPREDNISolone SOD SUCC 125 MG VIAL 60 MG IV PUSH (06:07)
[2020-02-07] MEDS: CENTRAL LINE FLUSH 10 ML IV PUSH ×2 (06:07→14:22)
[2020-02-07 06:34] LABS: Glucose Point of Care 124 (65-105)
--- NOTE | 2020-02-07 07:01 | ECG_ITS ---
Measurements Intervals [place] Rate: 55 P: 81 DC: 173 QRS: -51 QRSD: 101 T: -22 QT: 486 QTc: 465 Interpretive Statements SINUS BRADYCARDIA LEFT AXIS DEVIATION INCOMPLETE RIGHT BUNDLE BRANCH BLOCK CANNOT RULE OUT SEPTAL INFARCT, AGE INDETERMINATE BORDERLINE T WAVE ABNORMALITY- INFERIOR LEADS BASELINE ARTIFACT- V3, V5 ABNORMAL ECG Electronically Signed On 02-07-2020 7:04:43 CDT by Antelmo Aldana D.O.
[2020-02-07] MEDS: DORNASE ALFA INH SOLN 1 MG/ML 2.5 ML AMP 2.5 MG INHALATION (08:17)
[2020-02-07] MEDS: FAMOTIDINE 20 MG/2 ML VIAL IV PUSH ×2 (08:54→20:28)
[2020-02-07] MEDS: ENOXAPARIN 40 MG/0.4 ML SYRINGE SUB-Q (08:54)
[2020-02-07] MEDS: AMLODIPINE BESYLATE 5 MG TABLET PO (08:54)
[2020-02-07 08:55] LABS: Troponin I 0.031 ng/mL (0.000-0.034)
--- NOTE | 2020-02-07 09:00 | WPDINTPN ---
Progress Note: A&P Assessment and Plan (1) Acute on chronic respiratory failure with hypoxia and hypercapnia: Code(s): J96.21 - Acute and chronic respiratory failure with hypoxia; J96.22 - Acute and chronic respiratory failure with hypercapnia Status: Acute Assessment and Plan: patient presented with shortness of breath, encephalopathy, found to be in hypercapnic respiratory failure, was intubated and placed on mechanical ventilation on 02/02/2020. Patient also is noncompliant with home oxygen at baseline. Has been previously admitted to [place] ICU in October 2019. Where he was intubated for similar issues. - patient self-extubated yesterday. Patient was doing well and was monitored over last 24 and has not required re-intubation. - Patient is saturating well on nasal cannula (2) Pneumonia: Qualifiers: Laterality: unspecified laterality Lung location: unspecified part of lung Pneumonia type: due to Pseudomonas Qualified Code(s): J15.1 - Pneumonia due to Pseudomonas Code(s): J18.9 - Pneumonia, unspecified organism Status: Acute Assessment and Plan: Chest x-ray is suggestive of airspace disease bilaterally with more on the right side. - sputum cultures growing Pseudomonas and Enterobacter, pansensitive - blood cultures are negative - Continue cefepime, and azithromycin, - vancomycin was discotinued on 02/04 (3) Suspected COVID-19 virus infection: Code(s): R68.89 - Other general symptoms and signs Status: Acute Assessment and Plan: COVID19 testing is reported as negative. droplet and contact precautions has been discontinued. (4) Septic shock: Code(s): A41.9 - Sepsis, unspecified organism; R65.21 - Severe sepsis with septic shock Status: Acute Assessment and Plan: resolved and patient is Off Levophed since 02/04/2020 at 8:18pm (5) Encephalopathy: Code(s): G93.40 - Encephalopathy, unspecified Status: Acute Assessment and Plan: Likely metabolic in nature. Had acute hypercarbic respiratory failure yesterday with pCO2 of 85. - resolved as patient is now alert oriented x3 - I have discontinued Precedex infusion (6) COPD (chronic obstructive pulmonary disease): Qualifiers: COPD type: unspecified COPD Qualified Code(s): J44.9 - Chronic obstructive pulmonary disease, unspecified Code(s): J44.9 - Chronic obstructive pulmonary disease, unspecified Status: Acute Assessment and Plan: COPD exacerbation, continue steroids, bronchodilators and antibiotics for now (7) HTN (hypertension): Qualifiers: Hypertension type: essential hypertension Qualified Code(s): I10 - Essential (primary) hypertension Code(s): I10 - Essential (primary) hypertension Status: Acute Assessment and Plan: Antihypertensive medications are on hold. (8) CHF (congestive heart failure): Qualifiers: Heart failure type: systolic Heart failure chronicity: chronic Qualified Code(s): I50.22 - Chronic systolic (congestive) heart failure Code(s): I50.9 - Heart failure, unspecified Status: Acute Assessment and Plan: Lasix IV today (9) Dietary counseling and surveillance: Code(s): Z71.3 - Dietary counseling and surveillance Status: Acute Assessment and Plan: advance diet as tolerated (10) DVT prophylaxis: Code(s): Z29.9 - Encounter for prophylactic measures, unspecified Status: Acute Assessment and Plan: DVT prophylaxis; Lovenox stress ulcer prophylaxis: Famotidine (11) Chest pain: Code(s): R07.9 - Chest pain, unspecified Status: Acute Assessment and Plan: chest pain appears to be noncardiac in nature from history but patient does have history of coronary disease. EKG shows T-wave abnormalities. Chest pain has resolved. Will check troponin. Start aspirin
--- NOTE | 2020-02-07 10:40 | PCDIET ---
Nutrition Follow-Up Complete: Nutrition Diagnosis: Inadequate oral intake related to oral intubation as evidenced by NPO status, need for enteral feedings. Nutrition Goal: Patient to meet estimated nutritional needs. Goal not met. Patient self-extubated yesterday and is currently on nasal cannula. Diet is clear liquid. Recommend [employer] PERSON evaluation and diet advancement, if appropriate. Last recorded weight is 75.7 kg which is stable. Bowel Motility: +BM today. Labs Reviewed: Glu (135), BUN (24), Cr (0.6), Na (136) Meds Noted: Albuterol, Pepcid, Zithromax, Solu Medrol, Cefepime, Versed Additional Notes: Right hip with healed ulcer. No other skin issues documented. Will continue to monitor with same goal. Nutrition Monitoring and Evaluation: Follow up every 3 days.
[2020-02-07 12:04] LABS: Troponin I 0.033 ng/mL (0.000-0.034)
[2020-02-07] MEDS: FUROSEMIDE INJ 40 MG/4 ML VIAL IV PUSH (14:16)
[2020-02-07] MEDS: ASPIRIN 325 MG ENTERIC TABLET PO (14:54)
--- NOTE | 2020-02-07 15:20 | PCOTNOTE ---
Attempted OT evaluation. Patient currently needing central line pulled, then will need to lie flat for 30 minutes. RN also states he will be moving out of ICU onto medical floor. Will attempt eval when on medical floor without central line.
--- NOTE | 2020-02-07 15:31 | PCPTNOTE ---
Physical therapy unable to see patient today due to patient having central line being removed from RN and then required lying supine for ~30mins and being transferred to another floor. Therapy will re-attempt patient tomorrow for initial evaluation, RN aware. Elaine Hernández, PT, DPT
--- NOTE | 2020-02-07 16:26 | PM.IMPN ---
Progress Note: A&P Assessment and Plan (1) Acute on chronic respiratory failure with hypoxia and hypercapnia: Code(s): J96.21 - Acute and chronic respiratory failure with hypoxia; J96.22 - Acute and chronic respiratory failure with hypercapnia Status: Acute Assessment and Plan: 02/01 intubated on arrival to the emergency department. Self-extubated pm 02/05 and O2 sat 92% on 3 L (2) Septic shock: Code(s): A41.9 - Sepsis, unspecified organism; R65.21 - Severe sepsis with septic shock Status: Acute Assessment and Plan: Supported by fever, tachycardia, leukocytosis, and hypotension, refractory to IV fluid boluses. Lactic acid levels within normal limits. Blood cultures negative all secondary to pneumonia (3) Right upper lobe pneumonia: Qualifiers: Pneumonia type: due to unspecified organism Qualified Code(s): J18.9 - Pneumonia, unspecified organism Code(s): J18.9 - Pneumonia, unspecified organism Status: Acute Assessment and Plan: Continue azithromycin, cefepime day 5 Sputum culture with pseudomonas aeruginosa, enterobacter, yeast Urine antigens for strep negative COVID-19 results NEGATIVE Continue bronchodilators (4) COPD (chronic obstructive pulmonary disease): Qualifiers: COPD type: unspecified COPD Qualified Code(s): J44.9 - Chronic obstructive pulmonary disease, unspecified Code(s): J44.9 - Chronic obstructive pulmonary disease, unspecified Status: Acute Assessment and Plan: Mild wheezing 02/03 IV methylprednisolone added and decreased to 40 q12 this pm (5) Tobacco dependence: Code(s): F17.200 - Nicotine dependence, unspecified, uncomplicated Status: Acute Assessment and Plan: Smoking cessation not addressed due to condition (6) Essential hypertension: Code(s): I10 - Essential (primary) hypertension Status: Acute Assessment and Plan: Blood pressure rebounding off pressors, restarted amlodipine 03/07 and hernandez still on hold (7) Opioid abuse: Code(s): F11.10 - Opioid abuse, uncomplicated Status: Acute Assessment and Plan: Monitor for s/sx w/d (8) Chronic systolic congestive heart failure: Code(s): I50.22 - Chronic systolic (congestive) heart failure Status: Acute Assessment and Plan: Clinically not in acute failure Probable restart Hernandez in a.m 03/08, had dose of IV lasix today. (9) Chest pain: Code(s): R07.9 - Chest pain, unspecified Status: Acute Assessment and Plan: Atypical chest pain with negative troponins continue to monitor. ASA added Subjective Date/time seen: 02/07/20 16:26 Interval history: Date of visit 02/06. Admitted 02/01 with pneumonia and respiratory failure. Intubated. 02/05 a.m. remained on ventilator 02/05 p.m. self-extubated and doing fine tolerating liquida well Exam Narrative: Exam Narrative: Blood pressure 118/56 pulse is 80 now saturating 92% on 3 L nasal cannula afebrile HEENT: PERRL, sclerae nonicteric, NECK: No JVD CHEST: Scattered rhonchi with decreased breath sounds HEART: NL S1/S2, regular, no murmur ABDOMEN: BS+, soft, nontender, EXTREMITIES: No , edema, NEUROLOGIC: CN intact and symmetric to inspection. With no focal deficits PSYCH: Alert. Appropriate now. Objective Data Vital Signs Vital Signs: Vital Signs - 24 hr 02/06/20 17:58 02/06/20 18:00 02/06/20 20:00 Temperature 37.1 C Pulse Rate 68 63 61 Respiratory Rate 15 16 Blood Pressure 163/97 H 155/91 H Pulse Oximetry 93 95 02/06/20 20:35 02/06/20 20:44 02/06/20 20:46 Temperature Pulse Rate 62 60 Respiratory Rate 14 14 Blood Pressure Pulse Oximetry 95 02/06/20 22:00 02/07/20 00:00 02/07/20 02:00 Temperature 37.0 C Pulse Rate 63 61 58 L Respiratory Rate 14 18 18 Blood Pressure 150/83 H 140/72 155/84 H Pulse Oximetry 92 93 94 02/07/20 02:0
--- NOTE | 2020-02-07 16:40 | ECG_ITS ---
Measurements Intervals [place] Rate: 81 P: 113 MA: 155 QRS: 224 QRSD: 109 T: 210 QT: 406 QTc: 471 Interpretive Statements SINUS RHYTHM VENTRICULAR PREMATURE COMPLEXES ARM LEADS REVERSED BORDERLINE T WAVE ABNORMALITY- INFERIOR LEADS BASELINE ARTIFACT- I, II, III BORDERLINE ECG Electronically Signed On 02-08-2020 7:12:11 CDT by Antelmo Aldana D.O.
--- NOTE | 2020-02-07 18:44 | PC.NURSE ---
This patient, Christoph Napier ., was transferred to [ 255] on 02/07/20 at 1844. Personal belongings sent with patient. Belongings list checked and signed with receiving [ ]. Report given to [MADY Pinzon ]. Appropriate documentation sent with patient.
[2020-02-07] MEDS: methylPREDNISolone SOD SUCC 40 MG VIAL IV PUSH (20:28)
[2020-02-07] MEDS: TRAZODONE HCL 50 MG TABLET 150 MG PO (20:59)
[2020-02-08] MEDS: TRAMADOL HCL 50 MG TABLET PO (01:31)
[2020-02-08 02:02] VITALS: PULSE 69; RESP 18
[2020-02-08] MEDS: ALBUTEROL SULFATE NEB 2.5 MG/0.5 ML INH INHALATION ×2 (02:02→08:37)
[2020-02-08 02:10] VITALS: PULSE 72; RESP 18
[2020-02-08] MEDS: MORPHINE SULFATE 4 MG/ML INJ IV PUSH ×2 (03:59→07:46)
[2020-02-08 05:25] LABS: Hematocrit 35.9 % (42.0-52.0); Hemoglobin 11.6 g/dL (14.0-18.0); Mean Corpuscular HGB Conc 32.3 g/dl (32-36); Mean Corpuscular Hemoglobin 27.9 pg (26-34); Mean Corpuscular Volume 86.3 fl (80-100); Mean Platelet Volume 10.1 fl (7.4-10.4); Platelet Count Result 219 k/mm3 (150-375); Red Blood Count 4.16 M/mm3 (4.6-6.20); Red Cell Distribution Width 14.8 % (11.5-14.5); White Blood Count 4.5 K/mm3 (4.5-10.0)
[2020-02-08 05:48] LABS: Blood Urea Nitrogen 18 mg/dL (9-20); Calcium 8.3 mg/dL (8.4-10.2); Carbon Dioxide 36 mmol/L (22-30); Chloride 97 mmol/L (98-107); Estimated CRCL calculation 138 ml/min; Estimated Glomerular Filt Rate > 60; Glucose 128 mg/dL (75-110); Magnesium 2.1 mg/dL (1.6-2.3); Potassium 3.6 mmol/L (3.4-5.0); Sodium 135 mmol/L (137-145)
[2020-02-08 06:00] VITALS: BP 124/73; PULSE 64; RESP 16; TEMP 36.3; O2SAT 94
[2020-02-08] MEDS: POTASSIUM CHLORIDE 20 MEQ TABLET PO (07:42)
[2020-02-08] MEDS: ASPIRIN 325 MG ENTERIC TABLET PO (07:43)
[2020-02-08] MEDS: TAMSULOSIN HCL 0.4 MG CAPSULE PO (07:45)
[2020-02-08] MEDS: AMLODIPINE BESYLATE 5 MG TABLET PO (07:45)
[2020-02-08] MEDS: FINASTERIDE 5 MG TABLET PO (07:45)
[2020-02-08] MEDS: methylPREDNISolone SOD SUCC 40 MG VIAL IV PUSH (07:46)
[2020-02-08] MEDS: ENOXAPARIN 40 MG/0.4 ML SYRINGE SUB-Q (07:46)
[2020-02-08] MEDS: PAROXETINE 20 MG TABLET PO (07:46)
[2020-02-08] MEDS: FAMOTIDINE 20 MG/2 ML VIAL IV PUSH (07:46)
[2020-02-08 08:37] VITALS: PULSE 101; RESP 18; O2SAT 94
[2020-02-08 08:47] VITALS: PULSE 88; RESP 18
[2020-02-08 09:06] VITALS: PULSE 72; O2SAT 94
--- NOTE | 2020-02-09 17:34 | PM.DS ---
DS: Diagnosis Admitting Diagnosis Admitting Diagnosis: Acute and chronic respiratory failure with hypoxia Discharge Diagnosis (1) Acute on chronic respiratory failure with hypoxia and hypercapnia: Code(s): J96.21 - Acute and chronic respiratory failure with hypoxia; J96.22 - Acute and chronic respiratory failure with hypercapnia Status: Acute Assessment and Plan: 02/01 intubated on arrival to the emergency department. Self-extubated pm 02/05 and O2 sat 92% on 3 L and continue to do well saturating at 94% on 3 L at the time of discharge with no respiratory distress (2) Septic shock: Code(s): A41.9 - Sepsis, unspecified organism; R65.21 - Severe sepsis with septic shock Status: Acute Assessment and Plan: Supported by fever, tachycardia, leukocytosis, and hypotension, refractory to IV fluid boluses. Lactic acid levels within normal limits. Blood cultures negative all secondary to pneumonia (3) Right upper lobe pneumonia: Qualifiers: Pneumonia type: due to unspecified organism Qualified Code(s): J18.9 - Pneumonia, unspecified organism Code(s): J18.9 - Pneumonia, unspecified organism Status: Acute Assessment and Plan: Continue azithromycin, cefepime day 5 and 2 days of Levaquin 750 p.o. for total 7 days treatment Sputum culture with pseudomonas aeruginosa, enterobacter, yeast Urine antigens for strep negative COVID-19 results NEGATIVE Continue bronchodilators (4) COPD (chronic obstructive pulmonary disease): Qualifiers: COPD type: unspecified COPD Qualified Code(s): J44.9 - Chronic obstructive pulmonary disease, unspecified Code(s): J44.9 - Chronic obstructive pulmonary disease, unspecified Status: Acute Assessment and Plan: Mild wheezing which had subsided by discharge 02/03 IV methylprednisolone added and decreased to 40 q12 this pm, with no wheezing or respiratory distress steroids were stopped and not tapered at home (5) Tobacco dependence: Code(s): F17.200 - Nicotine dependence, unspecified, uncomplicated Status: Acute Assessment and Plan: Smoking cessation not addressed due to condition (6) Essential hypertension: Code(s): I10 - Essential (primary) hypertension Status: Acute Assessment and Plan: Blood pressure rebounding off pressors, restarted amlodipine 03/07 and hernandez restarted on discharge (7) Opioid abuse: Code(s): F11.10 - Opioid abuse, uncomplicated Status: Acute Assessment and Plan: Monitor for s/sx w/d (8) Chronic systolic congestive heart failure: Code(s): I50.22 - Chronic systolic (congestive) heart failure Status: Acute Assessment and Plan: Clinically not in acute failure restarted Hernandez 03/09, had dose of IV lasix 03/08. (9) Chest pain: Code(s): R07.9 - Chest pain, unspecified Status: Acute Assessment and Plan: Atypical chest pain with negative troponins continue to monitor. ASA added DS: Summary Hospital Course Hospital Course: 64-year-old hypertensive white male with COPD on home O2 presented with sepsis, secondary to pneumonia and acute on chronic respiratory failure. Was intubated and mechanically ventilated and treated with antibiotics. Blood cultures no growth but sputum grew Pseudomonas and Enterobacter both sensitive to cefepime which had 5 day course IV and levofloxacin 750 daily for 2 days for a total 7 day treatment. Respiratory status greatly improved with back to his baseline 3 L by time of discharge Follow-up with primary care within the next 2 weeks Time Spent with Patient Time attestation: Total time spent providing and/or coordinating discharge services: 35 minutes Exam Narrative: Exam Narrative: Condition on discharge Blood pressure 120/72 pulse 64 saturating 94% on 3 L nasal cannula afebrile Lungs clear prolonged expiratory phase and distant breat
== END 2020-02-08 14:14 | disposition home or self-care (01) | DRG 871 ==
LOC: ANHED 14:10 → ANHICU 16:10 → ANH2MED 02-08 11:48 → ANHICU 02-12 14:30
PROVIDERS: Internal Medicine; Internal Medicine Critical Care Medicine; Physician Assistant; Admitting Provider Internal Medicine; Emergency Provider Emergency Medicine; PCP Physician Assistant; Visit Provider Internal Medicine
DX: A41.9 Sepsis, unspecified organism (principal); R65.21 Severe sepsis with septic shock; J18.9 Pneumonia, unspecified organism; J96.21 Acute and chronic respiratory failure with hypoxia; J96.22 Acute and chronic respiratory failure with hypercapnia; G93.41 Metabolic encephalopathy; J44.0 Chronic obstructive pulmonary disease with (acute) lower respiratory infection; I50.22 Chronic systolic (congestive) heart failure; I48.20 Chronic atrial fibrillation, unspecified; B37.89 Other sites of candidiasis; Z20.828 Contact with and (suspected) exposure to other viral communicable diseases; F17.210 Nicotine dependence, cigarettes, uncomplicated; F11.10 Opioid abuse, uncomplicated; B95.2 Enterococcus as the cause of diseases classified elsewhere; B96.5 Pseudomonas (aeruginosa) (mallei) (pseudomallei) as the cause of diseases classified elsewhere; I11.0 Hypertensive heart disease with heart failure; I25.10 Atherosclerotic heart disease of native coronary artery without angina pectoris; F31.9 Bipolar disorder, unspecified; M19.90 Unspecified osteoarthritis, unspecified site; N40.0 Benign prostatic hyperplasia without lower urinary tract symptoms; D64.9 Anemia, unspecified; K21.9 Gastro-esophageal reflux disease without esophagitis; K44.9 Diaphragmatic hernia without obstruction or gangrene; G47.33 Obstructive sleep apnea (adult) (pediatric); E78.5 Hyperlipidemia, unspecified; Z96.651 Presence of right artificial knee joint; Z99.81 Dependence on supplemental oxygen; Z95.5 Presence of coronary angioplasty implant and graft; Z91.19 Patient's noncompliance with other medical treatment and regimen
CPT/HCPCS: 31500; 36415; 36600; 71045; 80048; 80053; 80202; 82375; 82728; 82805; 83050; 83605; 83615; 83735; 84100; 84484; 85025; 85027; 86140; 87040; 87070; 87077; 87186; 87205; 87449; 87635; 87804; 87899; 93005; 93970; 94003; 94640; 96361; 96365; 96366; 96367; 96375; 97161; 97165; 99291; A9270; C1751; J0456; J0692; J0696; J1650; J1940; J2250; J2270; J2704; J2920; J2930; J3010; J3370; J3475; J7030; J7040; J7050; U0003

== ENCOUNTER 2020-12-17 18:22 | Emergency (ER) | payer OTHER, SELFPAY ==
[2020-12-17 18:38] VITALS: BP 120/86; RESP 20; TEMP 36.2; O2SAT 95
[2020-12-17 20:20] VITALS: BP 134/93; PULSE 96; RESP 18; O2SAT 97
[2020-12-17] MEDS: HYDROmorphone HCL INJ (*CRX) 1 MG/ML SYR (20:46)
--- NOTE | 2020-12-17 20:50 | ED.BACK ---
HPI - Back Pain/Injury General Chief Complaint: Back Pain/Injury Stated Complaint: laceration on back, sent from express care Time Seen by Provider: 12/17/20 20:26 Source: patient Mode of arrival: ambulatory Limitations: no limitations History of Present Illness HPI Narrative: Patient is a 65-year-old male sent here from the urgent care due to a large laceration on his left mid back. Patient states that he fell and hit a cabinet causing a laceration. Patient states that he tripped and fell, denies any symptoms prior to the fall. Patient denies any head, neck, chest, pelvic, hip or any extremity pain/injury. Severity: severe Pain scale (0-10): 8 Similar Symptoms Previously: No Quality: sharp Exacerbating factors: movement Relieving factors: none Related Data Home Medications Medication Instructions Recorded Confirmed albuterol sulfate INHALATION 12/17/20 atorvastatin 12/17/20 finasteride mg 12/17/20 ipratropium-albuterol ml INHALATION 12/17/20 omeprazole 12/17/20 paroxetine HCl mg PO 12/17/20 quetiapine 12/17/20 tamsulosin mg PO 12/17/20 trazodone 12/17/20 12/17/20 Allergies Allergy/AdvReac Type Severity Reaction Status Date / Time Penicillins Allergy Unknown Unknown Verified 12/17/20 20:22 Review of Systems Review of Systems: All systems reviewed & are unremarkable except as noted in HPI and below Constitutional: Constitutional: Denies body ache(s), Denies chills, Denies excessive sweating, Denies fatigue, Denies fever(s), Denies headache(s), Denies lethargy, Denies malaise, Denies weakness and Denies weight loss Eyes: Eyes: Denies blurry vision, Denies change in vision and Denies loss of vision ENT: Denies dizziness, Denies ear discharge, Denies headache(s), Denies lip swelling, Denies epistaxis, Denies nasal congestion, Denies neck pain, Denies throat swelling and Denies tongue swelling Cardiovascular: Cardiovascular: Denies chest pain, Denies chest pain at rest, Denies chest pain with activity, Denies diaphoresis, Denies rapid heart rate, Denies edema, Denies irregular heart rhythm, Denies lightheadedness, Denies palpitations, Denies dyspnea and Denies dyspnea on exertion Respiratory: Respiratory: Denies chest congestion, Denies cough, Denies hemoptysis, Denies dyspnea and Denies dyspnea on exertion Gastrointestinal: Gastrointestinal: Denies abdominal pain, Denies melena, Denies hematochezia, Denies diarrhea, Denies nausea, Denies vomiting and Denies hematemesis Musculoskeletal: Musculoskeletal: Denies abnormal gait, Denies deformity, Denies joint swelling, Denies limited range of motion, Denies neck pain and Denies numbness Neurologic: Denies Abnormal speech present, Denies abnormal gait, Denies confusion, Denies dizziness, Denies headache(s), Denies focal weakness, Denies loss of vision, Denies numbness, Denies Other visual disturbances, Denies Sensory deficit (Neuro) and Denies weakness Psychiatric: Psychiatric: Denies confusion, Denies depression, Denies auditory hallucinations, Denies homicidal ideation and Denies suicidal ideation Endocrine: Endocrine: Denies cold intolerance, Denies excessive sweating, Denies fatigue, Denies heat intolerance and Denies palpitations Hematologic/Lymphatic: Hematologic/Lymphatic: Denies easy bleeding and Denies easy bruising Allergic/Immunologic: Allergic/Immunologic: Denies lip swelling, Denies throat swelling and Denies tongue swelling PMFSH Family History Family History Sibling Family history of malignant neoplasm Carcinoma of colon Family history of lung cancer Father Family history of malignant neoplasm Family history of heart disease in male family member before age 55 Family history of cardiovascular disease Mother Family history of lung cancer Social History Social History Smoking status: Never smoker Alcohol intake: current
== END 2020-12-17 22:35 | disposition home or self-care (01) ==
PROVIDERS: Emergency Provider Emergency Medicine; PCP Family Medicine
DX: S21.221A Laceration with foreign body of right back wall of thorax without penetration into thoracic cavity, initial encounter (principal); W01.190A Fall on same level from slipping, tripping and stumbling with subsequent striking against furniture, initial encounter
CPT/HCPCS: 12035; 96374; 99284; J1170

== ENCOUNTER 2021-03-11 07:37 | Inpatient (IN) | payer OTHER, SELFPAY ==
[2021-03-11] VITALS (22 sets, daily range): BP systolic 98–152; BP diastolic 68–112; PULSE 82–133; RESP 16–27; TEMP 36.3–36.5; O2SAT 95–100; BMI 21.7
--- NOTE | ~2021-03-11 | CT_ITS ---
EXAMINATION: CTA chest PE protocol DATE: 03/11/2021 10:34 INDICATION: Shortness of breath. TECHNIQUE: Computed tomography angiography (CTA) of the chest was performed with 100 mL Omnipaque-350 intravenous contrast timed to evaluate the pulmonary arteries. Coronal maximum intensity projection 3D-reconstructions were created by the technologist. Automated exposure control and iterative reconst ruction technique were employed. The dose-length product was 412.53 mGy-cm. COMPARISON: Chest CT 10/28/2019 FINDINGS: There is severe emphysema. There is mild bronchiectasis in right lower lobe and right middl e lobe. There are chronic peripheral air space opacities in left upper lobe with volume loss, consist ent with scarring. Calcified right lung nodules and calcified right hilar lymph nodes are consistent with old granulomatous disease. There are peripheral airspace opacities with volume loss with interva l improvement in right upper lobe, consistent with scarring. There is mild atelectasis versus scarrin g in right middle lobe. There are multiple nodules in basilar right lower lobe. There is a small righ t pleural effusion. Cardiomegaly is noted. There are coronary artery calcifications. There are calcif ications of the aortic valve. No pericardial effusion. There is no pulmonary embolus. There are heali ng fractures of right 10th, 11th, and 12th ribs and right L1 and L2 transverse processes. IMPRESSION: 1. No pulmonary embolus. 2. Nodules in basilar right lower lobe, consistent with pneumonia. 3. Small right pleural effusion. 4. Severe emphysema with multifocal scarring. Reviewed, dictated and finalized at location B.
--- NOTE | ~2021-03-11 | CT_ITS ---
EXAMINATION: CT abdomen pelvis w con DATE: 03/12/2021 09:57 INDICATION: Weight loss. TECHNIQUE: Computed tomography (CT) of the abdomen and pelvis was performed with 100 mL Omnipaque 350 intravenous contrast. Automated exposure control and iterative reconstruction technique were employe d. The dose-length product was 265.12 mGy-cm. COMPARISON: CT abdomen and pelvis 10/28/2019, chest CT 03/11/2021 FINDINGS: The visualized portions of the lung bases demonstrate emphysema. A calcified right lung nod ule and calcified right hilar lymph nodes are consistent with old granulomatous disease. There is bro nchiectasis in right middle lobe and right lower lobe. There is mucous plugging in right lower lobe. There are nodules in basilar right lower lobe, consistent with pneumonia. There is a small right pleu ral effusion. Cardiomegaly is noted. There are coronary artery calcifications. No pericardial effusio n. The liver, gallbladder, and spleen are normal. There is a 9 mm cystic lesion in the pancreas. The common duct is dilated to 10 mm. The adrenal glands and kidneys are normal. There are no dilated loop s of bowel. There is a bowel anastomosis in right abdomen. There are no pathologically enlarged lymph nodes. There is no free intraperitoneal fluid. There is calcified atherosclerosis of the aorta and m any of the other arteries. There is no significant stenosis of the celiac axis or the renal arteries. There is moderate stenosis of superior mesenteric artery. There is mild lumbar spondylosis. There ar e healing fractures of right 10th, 11th, and 12th ribs and right L1 and L2 transverse processes. IMPRESSION: 1. Mild pneumonia in right lower lobe. 2. Small right pleural effusion. 3. Emphysema. 4. Mildly dilated common duct with improvement from 10/28/2019. 5. 9 mm cystic lesion in the pancreas with improvement from 10/28/2019. The differential diagnosis inc ludes pseudocyst, intraductal papillary mucinous neoplasm (IPMN), mucinous cystic neoplasm (MCN), ser ous cystadenoma, and neuroendocrine tumor. Abdomen MRI without and with contrast is recommended in 2 years. Reviewed, dictated and finalized at location B. IMPRESSION: 1. Mild pneumonia in right lower lobe. 2. Small right pleural effusion. 3. Emphysema. 4. Mildly dilated common duct with improvement from 10/28/2019. 5. 9 mm cystic lesion in the pancreas with improvement from 10/28/2019. The diff erential diagnosis includes pseudocyst, intraductal papillary mucinous neoplasm (IPMN), mucinous cystic neoplasm (MCN), serous cystadenoma, and neuroendocrine tumor. Abdomen MRI without and with contrast is recommended in 2 years.
--- NOTE | ~2021-03-11 | XR_ITS ---
EXAMINATION: XR chest 2V DATE: 03/11/2021 08:26 INDICATION: Shortness of breath TECHNIQUE: PA and lateral views of the chest are obtained. COMPARISON: 02/07/2020 FINDINGS: There are airspace opacities of the left upper lobe and right lung base. A small right pleu ral effusion is present. There is no pneumothorax. Cardiomegaly is noted. There is mild thoracic spon dylosis. Suture anchors are noted in the right humeral head. IMPRESSION: 1. Airspace opacities of the right lung base and left upper lobe, possibly infectious/inflammatory. R ecommend followup radiographs in 10-14 days after appropriate therapy to evaluate for improvement/res olution. 2. Cardiomegaly. 3. Small right pleural effusion. Reviewed, dictated and finalized at location A. IMPRESSION: 1. Airspace opacities of the right lung base and left upper lobe, possibly infe ctious/inflammatory. Recommend followup radiographs in 10-14 days after appropr iate therapy to evaluate for improvement/resolution. 2. Cardiomegaly. 3. Small right pleural effusion.
--- NOTE | 2021-03-11 07:55 | PC.NURSE ---
Dr. Rene at bedside. Pt states he's been feeling this way since stopping the drugs three weeks ago, I was snorting Fentanyl , endorses congested cough and clear sputum production, +chills. ST on monitor rate up to 130's, afebrile. Family concerned as he gets weak like this when he gets pneumonia . Uses 2.5L O2 prn at home, hx COPD
--- NOTE | 2021-03-11 08:02 | ECG_ITS ---
Measurements Intervals [place] Rate: 129 P: TN: 0 QRS: 141 QRSD: 142 T: -15 QT: 308 QTc: 452 Interpretive Statements ATRIAL FLUTTER/TACHYCARDIA WITH RAPID VENTRICULAR RESPONSE VENTRICULAR PREMATURE COMPLEXES RIGHT AXIS DEVIATION INTRAVENTRICULAR CONDUCTION DELAY CANNOT RULE OUT SEPTAL INFARCT, AGE INDETERMINATE SUBTLE ST ELEVATIOIN IN ANTERIOR LEADS BASELINE ARTIFACT- III, AVL, AVF, V1-V4 ABNORMAL ECG Electronically Signed On 03-11-2021 8:29:18 CDT by Antelmo Aldana D.O.
[2021-03-11 08:58] LABS: Basophils Percent Auto 0.4 % (0.2-1.2); Eosinophils Absolute Auto 0.1 K/mm3 (0-0.3); Eosinophils Percent Auto 0.7 % (0-4.4); Hematocrit 46.5 % (42.0-52.0); Hemoglobin 14.4 g/dL (14.0-18.0); Immature Granulocyte Absolute 0.04 K/mm3 (0.00-0.031); Immature Granulocyte Percent A 0.4 % (0-0.5); Lymphocytes Absolute Auto 1.76 K/mm3 (0.9-3.2); Lymphocytes Percent Auto 18.2 % (18.3-44.2); Mean Corpuscular Hemoglobin 26.7 pg (26-34); Mean Corpuscular Volume 86.1 fl (80-100); Mean Platelet Volume 11.1 fl (7.4-10.4); Monocytes Percent Auto 9.9 % (2.6-8.5); Neutrophils Absolute Auto 6.8 K/mm3 (1.3-6.7); Neutrophils Percent Auto 70.4 % (45.5-73.1); Platelet Count Result 211 k/mm3 (150-375); Red Cell Distribution Width 16.2 % (11.5-14.5); White Blood Count 9.7 K/mm3 (4.5-10.0)
--- NOTE | 2021-03-11 09:38 | ED.GENADULT ---
HPI - General Adult General Chief complaint: Shortness of Breath/Dyspnea Stated complaint: sob Time Seen by Provider: 03/11/21 07:48 Source: patient History of Present Illness HPI narrative: Patient is a 65 y/o male complaining of mild SOB for last 2-3 weeks. There is no known alleviating or exacerbating factor. He has some cough and upper chest pain. He has no fever. He has history of COPD. He states that he ran out of [employer] recently. Related Data Home Medications Medication Instructions Recorded Confirmed amlodipine 5 mg PO DAILY 09/10/19 10/03/20 finasteride 5 mg PO DAILY 09/10/19 10/03/20 lisinopril 20 mg PO DAILY 09/10/19 10/03/20 paroxetine HCl 20 mg PO DAILY 09/10/19 10/03/20 tamsulosin 0.4 mg PO DAILY 09/10/19 10/03/20 nitroglycerin 1 mg SUBLINGUAL DAILY PRN 10/20/19 10/03/20 Allergies Allergy/AdvReac Type Severity Reaction Status Date / Time No Known Allergies Allergy Verified 02/06/21 09:41 Review of Systems Constitutional: Constitutional: Denies chills, Denies fever(s), Denies headache(s) and Denies weakness Eyes: Eyes: Denies blurry vision ENT: Denies headache(s) and Denies neck pain Cardiovascular: Cardiovascular: Reports chest pain and Reports dyspnea Respiratory: Respiratory: Reports cough and Reports dyspnea Gastrointestinal: Gastrointestinal: Denies abdominal pain, Denies diarrhea, Denies nausea and Denies vomiting Genitourinary: Genitourinary: Denies hematuria and Denies dysuria Musculoskeletal: Musculoskeletal: Denies back pain and Denies neck pain Neurologic: Denies headache(s) and Denies weakness FOR[facility]LY [facility] Past Medical History Medical History Anxiety Arthritis Benign prostatic hyperplasia Bipolar 1 disorder Bowel obstruction Chronic anemia Chronic respiratory failure Chronic systolic congestive heart failure Echocardiogram in October 2018 showed some regional wall motion abnormalities and thus accurate ejection fraction could not be reported. Limited echocardiogram in August 2019 showed mildly reduced LV systolic function with ejection fraction of 40% as well as diastolic dysfunction grade 2. Mid inferior wall and basal anterior lateral wall were akinetic. COPD (chronic obstructive pulmonary disease) Coronary artery disease Depression Diverticulitis Essential hypertension GERD (gastroesophageal reflux disease) Hiatal hernia Hyperlipidemia Hypoxemia Obstructive sleep apnea Opiate use Osteoarthritis Pancreatitis Paroxysmal atrial fibrillation Renal disease Tobacco dependence Surgical History Surgical History History of bowel resection For benign tumor. History of coronary artery stent placement History of repair of right rotator cuff History of right knee joint replacement Family History Family History Sibling Acute myocardial infarction Colon cancer Diabetes mellitus Hypertension Leukemia Father Acute myocardial infarction Congestive heart failure Mother History of blood clots Cerebrovascular accident Chronic obstructive pulmonary disease Asthma Cancer Sibling Diabetes mellitus Social History Social History Social History: Patient lives with his Vale who is his POA. He is disabled from his COPD. He remains a full code. He does have known ongoing opioid abuse. Continues to smoke 1 pack of cigarettes daily. Previous alcohol abuse with last alcoholic drink approximately 5 years ago. Smoking packs per day: 1 Smoking cigarettes per day: 20.0 Years smoked: 50 Smoking pack-years: 50.00 Smoking status: Current every day smoker Tobacco type: cigarettes Other substance usage details: Fentanyl, Valium Additional living arrangements comments: Patient lives with his . Additional occupation/education comments: Disable
[2021-03-11] MEDS: ALBUTEROL SULFATE NEB 2.5 MG/0.5 ML INH INHALATION (09:42)
[2021-03-11] MEDS: IPRATROPIUM BR 0.02% INH SOLN 0.5 MG/2.5 ML VIAL INHALATION (09:42)
[2021-03-11 09:54] LABS: INR 1.2; Prothrombin Time 15.4 Seconds (11.1-14.7)
[2021-03-11 09:55] LABS: Partial Thromboplastin Time 26.3 SECONDS (22.3-36.8)
[2021-03-11 09:56] LABS: Alanine Aminotransferase 19 U/L (4-50); Albumin Level 3.6 g/dL (3.5-5.1); Alkaline Phosphatase 103 U/L (38-126); Anion Gap 6 mmol/L (8-16); Aspartate Amino Transferase 38 U/L (17-59); Bilirubin,Total 0.8 mg/dL (0.2-1.3); Blood Urea Nitrogen 11 mg/dL (9-20); Carbon Dioxide 32 mmol/L (22-30); Chloride 103 mmol/L (98-107); Estimated CRCL calculation 85 ml/min; Estimated Glomerular Filt Rate > 60; Glucose 98 mg/dL (75-110); Potassium 3.8 mmol/L (3.4-5.0); Sodium 141 mmol/L (137-145)
[2021-03-11 09:57] LABS: D Dimer 0.79 ug/mL (<0.48)
[2021-03-11 10:32] LABS: Troponin I 0.641 ng/mL (0.000-0.034)
--- NOTE | 2021-03-11 10:41 | PC.NURSE ---
Dr. Rene at bedside to speak with pt, Rachelle jeronimo in progress (rate in 120's, irregular, denies palpitations. Reports chest tightness and congestion ). Pt able to speak full clear sentences, tolerating 2.5L NC well. Also states I quit cigarettes last week Pt received both covid vaccines, last shot given in December.
[2021-03-11 11:31] LABS: Troponin I 0.658 ng/mL (0.000-0.034)
[2021-03-11] MEDS: FUROSEMIDE INJ 40 MG/4 ML VIAL IV PUSH (13:14)
--- NOTE | 2021-03-11 13:55 | PC.NURSE ---
Pt sitting up in chair, speaking full clear sentences, mild resp distress, mild congested cough, >95% sats on RA and 2.5 NC (pt intermittently pulls cannula off).
--- NOTE | 2021-03-11 15:44 | PC.NURSE ---
This patient, Christoph Napier , was admitted to IMU Room 207-01. Patient/family oriented to hospital policies and general routines including ID bracelet, bed and alarms, visiting hours, pain management, procedures, bathroom and other care routines, personal items, smoking policy, room service/diet, and visiting hours. Information on how to activate the Rapid Response Team has been discussed. Patient/Family are encouraged to report perceived risks to care and to ask questions if they do not understand what they are told or what they should do.
--- NOTE | 2021-03-11 17:58 | PM.IMHP ---
H&P: HPI History of Present Illness Date/Time: 03/11/21 17:58 this is a 65 year old male patient who has a history of COPD. He has a history fentanyl abuse. The patient stated that he recently quit smoking 3 weeks ago and quit using fentanyl 3 weeks ago. The patient has been very anxious and has been buying Xanax off the street. The patient stated that he has been losing a lot a weight as well. The patient was found to be in AFib with RVR. He was started on of Cardizem drip. It is not clear if he had been in AFib before. Reviewing the EKG it looks like atrial flutter today. But I did not find any previous EKGs with atrial flutter. The patient is quite anxious. 1. Airspace opacities of the right lung base and left upper lobe, possibly infectious/inflammatory. Recommend followup radiographs in 10-14 days after appropriate therapy to evaluate for improvement/resolution. 2. Cardiomegaly. 3. Small right pleural effusion. CTA was read as 1. No pulmonary embolus. 2. Nodules in basilar right lower lobe, consistent with pneumonia. 3. Small right pleural effusion. 4. Severe emphysema with multifocal scarring. The patient is being admitted to observation status and IMU on date of service 03/11/2021 Chief Complaint: Shortness of breath Review of Systems Review of Systems: All systems reviewed & are unremarkable except as noted in HPI and below Constitutional: Constitutional: Reports as per HPI and Reports no additional constitutional complaints Eyes: Eyes: Reports as per HPI and Reports no additional eye complaints ENT: Reports system reviewed and no additional complaints, except as documented and Reports Normal hearing present Cardiovascular: Cardiovascular: Reports no additional cardiovascular complaints Respiratory: Respiratory: Reports no additional respiratory complaints and Reports no additional respiratory complaints Gastrointestinal: Gastrointestinal: Reports as per HPI and Reports no additional gastrointestinal complaints Musculoskeletal: Musculoskeletal: Reports no additional musculoskeletal complaints Integumentary/Breasts: Skin/Breast: Reports system reviewed and no additional complaints, except as docu and Reports as per HPI Neurologic: Reports system reviewed and no additional complaints, except as documented, Reports as per HPI and Reports Normal hearing present Psychiatric: Psychiatric: Reports no additional psychiatric complaints and Reports as per HPI Endocrine: Endocrine: Reports no additional endocrine complaints Hematologic/Lymphatic: Hematologic/Lymphatic: Reports no additional hematologic/lymphatic complaints Allergic/Immunologic: Allergic/Immunologic: Reports no additional allergic/immunologic complaints PMFSH Past Medical History Medical History (Updated 03/11/21 @ 18:26 by Elaine Sommer NP) Anxiety Arthritis Benign prostatic hyperplasia Bipolar 1 disorder Bowel obstruction Chronic anemia Chronic respiratory failure Chronic systolic congestive heart failure Echocardiogram in October 2018 showed some regional wall motion abnormalities and thus accurate ejection fraction could not be reported. Limited echocardiogram in August 2019 showed mildly reduced LV systolic function with ejection fraction of 40% as well as diastolic dysfunction grade 2. Mid inferior wall and basal anterior lateral wall were akinetic. COPD (chronic obstructive pulmonary disease) Coronary artery disease Depression Diverticulitis Essential hypertension GERD (gastroesophageal reflux disease) Hiatal hernia Hyperlipidemia Hypoxemia Obstructive sleep apnea Opiate use Osteoarthritis Pancreatitis Paroxysmal atrial fibrillation Renal disease Tobacco dependence Surgical History Surgical History (Updated 03/11/21 @ 18:05 by Elaine Sommer NP) History of bowel resection For benign tumor. History of coronary artery stent placement The patient stated x2 History of repair of right rotator cuff History of right knee marian
[2021-03-11 18:02] LABS: Magnesium 1.8 mg/dL (1.6-2.3)
[2021-03-11 18:23] LABS: Troponin I 0.482 ng/mL (0.000-0.034)
[2021-03-11] MEDS: ALPRAZolam (*CRX) 0.125 MG TABLET PO (18:40)
[2021-03-11] MEDS: ENOXAPARIN 60 MG/0.6 ML SYRINGE 55 MG SUB-Q (18:41)
[2021-03-11] MEDS: QUEtiapine FUMARATE 25 MG TABLET 50 MG PO (20:12)
[2021-03-11] MEDS: traZODone HCL 50 MG TABLET 150 MG PO (20:12)
[2021-03-11] MEDS: ACETAMINOPHEN 325 MG TABLET 650 MG PO (20:13)
[2021-03-11] MEDS: ATORVASTATIN 40 MG TABLET PO (20:13)
[2021-03-11] MEDS: hydrOXYzine HCL 25 MG TABLET PO (20:13)
[2021-03-11] MEDS: methylPREDNISolone SOD SUCC 125 MG VIAL 60 MG IV PUSH (20:14)
[2021-03-12] VITALS (20 sets, daily range): BP systolic 97–116; BP diastolic 65–92; PULSE 59–113; RESP 16–24; TEMP 36.1–37; O2SAT 83–99; BMI 21.8
--- NOTE | 2021-03-12 | ECHO_ITS ---
Patient Info Name: Christoph Napier Age: 65 years : 1955 Gender: Male Ht: 63 in Wt: 123 lbs BSA: 1.58 m2 HR: 86 bpm BP: 108 / 72 mmHg Technical Quality: Good Exam Date: 03/12/2021 10:54 AM Exam Location: [facility] Patient Status: Inpatient Admit Date: 03/11/2021 Staff Ordering Physician: Fatuma Egan MD ([email or web address]) Cruller Maker: Ricky Murdock, RDCS, RT Attending Provider: Domitila Silver MD Exam Type: CA echo doppler color flow Study Info Indications I50.9 - Heart failure, unspecified Complete two-dimensional, color flow and Doppler transthoracic echocardiogram is performed. Strain analysis performed. Summary 1. Complete two-dimensional, color flow and Doppler transthoracic echocardiogram is performed. 2. Left ventricular systolic function is normal, estimated at 30-35%. 3. Left ventricular chamber dimension is mildly enlarged. 4. There is mild mitral valve regurgitation. 5. There is moderate tricuspid valve regurgitation. 6. Moderate pulmonary hypertension, estimated pulmonary arterial systolic pressure is 46 mmHg. Left Ventricle Left ventricular chamber dimension is mildly enlarged. Left ventricular systolic function is normal, estimated at 30-35%. There is no increased left ventricular wall thickness. Left ventricular septal wall motion is abnormal with septal motion related to bundle branch block. The left ventricular diastolic function is grade III diastolic dysfunction. Right Ventricle Right ventricular chamber dimension is normal. Right ventricular systolic function is normal. Left Atria Left atrial chamber dimension is mildly enlarged. Right Atria Right atrial chamber dimension is normal. Aortic Valve The aortic valve is trileaflet. There is no aortic valve sclerosis. There is no aortic valve stenosis. There is no aortic valve regurgitation. Pulmonic Valve The pulmonic valve is normal. There is no pulmonic valve stenosis. There is no pulmonic regurgitation. Mitral Valve The mitral valve has normal leaflets. There is no mitral valve stenosis. There is mild mitral valve regurgitation. Tricuspid Valve The tricuspid valve leaflets are normal. There is no significant tricuspid valve stenosis. There is moderate tricuspid valve regurgitation. Moderate pulmonary hypertension, estimated pulmonary arterial systolic pressure is 46 mmHg. Pericardium/Pleural The pericardium appears normal. There is no pericardial effusion. Inferior Vena Cava Normal inferior vena cava with >50% collapse upon inspiration consistent with normal right atrial pressure, 10 mmHg. Aorta The aortic root size at the sinus of Valsalva is normal. The prox ascending aorta size is normal. Left Ventricular Outflow Tract Name Value Normal LVOT 2D LVOT Diameter 2.4 cm LVOT Doppler LVOT Peak Gradient 2 mmHg LVOT Mean Gradient 1 mmHg LVOT VTI 14 cm LVOT VTI/AV VTI Ratio 0.7 LVOT Stroke Volume 65 ml LVOT CO
[2021-03-12] MEDS: ALPRAZolam (*CRX) 0.125 MG TABLET PO ×2 (04:15→08:07)
[2021-03-12] MEDS: ACETAMINOPHEN 325 MG TABLET 650 MG PO ×2 (04:16→08:00)
[2021-03-12 04:31] LABS: Basophils Percent Auto 0.2 % (0.2-1.2); Hematocrit 45.7 % (42.0-52.0); Hemoglobin 14.3 g/dL (14.0-18.0); Immature Granulocyte Absolute 0.02 K/mm3 (0.00-0.031); Immature Granulocyte Percent A 0.4 % (0-0.5); Lymphocytes Absolute Auto 0.85 K/mm3 (0.9-3.2); Lymphocytes Percent Auto 17.2 % (18.3-44.2); Mean Corpuscular HGB Conc 31.3 g/dl (32-36); Mean Corpuscular Hemoglobin 26.6 pg (26-34); Mean Corpuscular Volume 85.1 fl (80-100); Mean Platelet Volume 10.3 fl (7.4-10.4); Monocytes Absolute Auto 0.1 K/mm3 (0.1-0.6); Monocytes Percent Auto 2.4 % (2.6-8.5); Neutrophils Absolute Auto 3.9 K/mm3 (1.3-6.7); Neutrophils Percent Auto 79.8 % (45.5-73.1); Platelet Count Result 233 k/mm3 (150-375); Red Blood Count 5.37 M/mm3 (4.6-6.20); Red Cell Distribution Width 15.8 % (11.5-14.5); White Blood Count 4.9 K/mm3 (4.5-10.0)
[2021-03-12 04:44] LABS: Alanine Aminotransferase 18 U/L (4-50); Albumin Level 3.5 g/dL (3.5-5.1); Alkaline Phosphatase 89 U/L (38-126); Anion Gap 5 mmol/L (8-16); Aspartate Amino Transferase 30 U/L (17-59); Bilirubin,Total 1.1 mg/dL (0.2-1.3); Blood Urea Nitrogen 10 mg/dL (9-20); Calcium 8.9 mg/dL (8.4-10.2); Carbon Dioxide 33 mmol/L (22-30); Chloride 100 mmol/L (98-107); Estimated CRCL calculation 95 ml/min; Estimated Glomerular Filt Rate > 60; Glucose 169 mg/dL (75-110); Lipase 25 U/L (23-300); Potassium 3.8 mmol/L (3.4-5.0); Sodium 138 mmol/L (137-145)
[2021-03-12 04:46] LABS: Lactic Acid Reflex 1.6 mmol/L (0.7-2.1)
[2021-03-12] MEDS: methylPREDNISolone SOD SUCC 125 MG VIAL 60 MG IV PUSH (05:17)
[2021-03-12] MEDS: ENOXAPARIN 60 MG/0.6 ML SYRINGE 55 MG SUB-Q (05:18)
[2021-03-12 05:49] LABS: Thyroid Stimulating Hormone Reflex 0.836 uIU/mL (0.465-4.68)
[2021-03-12] MEDS: ONDANSETRON INJ 4 MG/2 ML VIAL IV PUSH ×2 (08:08→14:16)
[2021-03-12] MEDS: FUROSEMIDE INJ 40 MG/4 ML VIAL IV PUSH (08:44)
[2021-03-12] MEDS: FINASTERIDE 5 MG TABLET PO (08:44)
--- NOTE | 2021-03-12 08:56 | PM.CNCAR ---
Assessment and Plan Assessment and plan (1) Dyspnea: Code(s): R06.00 - Dyspnea, unspecified Status: Acute Assessment and Plan: 65 year-old male with h/o HTN, CAD s/p PR, s/p RCA PCI, Paroxysmal A fib, systolic CHF with EF 40-45%, mild aortic stenosis, COPD, lung abscess (2019), bipolar, RIGO,non compliance with meds and medical follow up, opioids and benozos use who presents with dyspnea and cough He has extensive lung disease but it appears his current presentation with dyspnea is likely due to symptomatic A flutter with RVR with subsequent acute CHF. He feels already better since HR controlled (2) Atrial flutter with rapid ventricular response: Code(s): I48.92 - Unspecified atrial flutter Status: Acute Assessment and Plan: HR better with cardizem drip. Will avoid computer terminal operator use of CCB given known underlying cardiomyopathy and would instead use low dose BB if okay per pulmonary. Start Metoprolol 25 mg daily. Wean off cardizem drip His CHADsVASc score is 5. He has severe non compliance with meds and medical follow up hence AC with Coumadin may be challenging to monitor. Rodriguez tart Eliquis 5 mg BID Check 2D echocardiogram (3) CAD (coronary artery disease): Code(s): I25.10 - Atherosclerotic heart disease of [place] coronary artery without angina pectoris Status: Acute Assessment and Plan: He has history of PR and PCI to RCA however had in stent restnosis on Cath in 2017 with sub total occlusion of RCA that was filling from left collaterals. Repeated cath in 2019 showed stable findings He has mildly elevated troponin this admission that peaked at 0.6. No chest pain. No ischemic changes on EKG. Trop elevation is likely due to increased demand from tachcyardia. Will plan outpatient stress testing to assess for ischemia (4) Chronic systolic congestive heart failure: Code(s): I50.22 - Chronic systolic (congestive) heart failure Status: Acute Assessment and Plan: He is better compensated with rate control. Not requing loop diuretics at current time (5) Tobacco dependence: Code(s): F17.200 - Nicotine dependence, unspecified, uncomplicated Status: Acute Assessment and Plan: Quit 3 weeks ago History of Present Illness History of Present Illness Consult date/time: 03/12/21 08:56 65 year-old male with h/o HTN, CAD s/p PR, s/p RCA PCI, Paroxysmal A fib, systolic CHF with EF 40-45%, mild aortic stenosis, COPD, lung abscess (2019), bipolar, RIGO,non compliance with meds and medical follow up, opioids and benozos use who presents with dyspnea and cough He states that he ran out of his medicine about 3 weeks ago and since then he has been feeling short of breath that has been gradually getting worse to the point he gets short of breath walking room to room which was causing great deal of anxiety for him. He also reports cough with dry sputum. In ER he was noted to be in Atrial flutter with HR in 120s. He was started on Cardizem drip and his HR improved to 80s. He already feels much better and asks if can go home Troponin was mildly elevated, peaked at 0.6. TSH normal. K 3.6. Mg 1.8. D dimer was elevated but CT chest showed no PE. He has severe emphysematous changes. Had ECHO 10/20/19 showed LV systolic function is mildly reduced with an estimated EF of 40-45%. Grade I diastolic dysfunction , mild aortic valve stenosis. The mitral valve has thickened leaflets Had cath 04/27/17 showing total occlusion of the right coronary artery which was previously stented with excellent left to right and faint right to right collaterals. Mild disease involving the proximal to mid LAD. Moderate disease involving the ostium of the first diagonal. LCx 25% lesion Angiogram 03/15/19:CAD no significant change from cath 05/03 . He quit smoking 3 weeks ago. He reports that he lost 100 pounds over the last 2 years. Reason For Visit: atrial flutter with
--- NOTE | 2021-03-12 11:23 | PM.CNPUL ---
Assessment and Plan Assessment and plan (1) COPD (chronic obstructive pulmonary disease): Qualifiers: COPD type: unspecified COPD Qualified Code(s): J44.9 - Chronic obstructive pulmonary disease, unspecified Code(s): J44.9 - Chronic obstructive pulmonary disease, unspecified Status: Acute Assessment and Plan: 65-year-old man with a history of COPD on LABA, LAMA and ICS with apical predominant panlobular emphysema on his CT scan, chronic hypoxemic respiratory failure on home oxygen 10/05, intubated for hypercarbic respiratory failure 10/2019 and 01/2020, left lung abscess 2019 presented 03/11 with worsening QUILES and increased phlegm production. Found to be in Aflutter with RVR and now improved with rate control. Also being treated with ceftraixone and azithromycin for pneumonia (denies fever, denies change in phlegm color, WBC normal and CT scan without new infiltrates) and I will continue these antibiotics pending blood culture results. No wheezing and I do not think he is having a COPD exacerbation and will DC his solumedrol. I will continue his home COPD regimen of trelegy (200/62.03/11) at 1 puff Q day. PRN albuterol inhaler and nebs in hospital now. Since he stopped smoking his hypoxemia appears much better. Currently on RA his sats are 96%. I will order overnight oximetry on room air tonight. Will need home O2 assessment prior to discharge. Will follow with you. History of Present Illness History of Present Illness Consult date: 03/12/21 Reason for consult: COPD Chief complaint: atrial flutter with rvr/chf Narrative: 65-year-old man with a history of COPD on LABA, LAMA and ICS with apical predominant panlobular emphysema on his CT scan, chronic hypoxemic respiratory failure, intubated for hypercarbic respiratory failure 10/2019 and 01/2020, left lung abscess 2018, polysubstance abuse (fentanyl and xanax buys off street), coronary artery disease s/p stent who is followed in the Pulmonary Clinic. He is known to be noncompliant with his medicines as well as his oxygen. Patient presented to the emergency department on 03/11 with worsening dyspnea on exertion was found to be in a flutter with bat rapid ventricular response. I was consulted regarding his COPD. 03/12 Patient tells me that he quit smoking cigarettes and taking fentanyl 3 weeks ago. Since then he has been feeling much better and notes that it during the day his oxygen saturations at been in the mid to high 90s on room air. He continues to wear to 3 L at night. Patient states that over the last week he has an aunt has had an increase in the volume of his phlegm, there has been no change in the phlegm color. Patient denies fever, chills, rigors, hemoptysis. Patient had worsening dyspnea on exertion and presented to the emergency room and was found to be in a flutter with rapid ventricular response. Patient had a CT angiogram of the chest that showed no PE, severe panlobular emphysema, mild bronchiectasis right lower lobe right middle lobe. Scarring left upper lobe right upper lobe improved peripheral opacities, multiple nodules in the right lower lobe and a small right pleural effusion. Patient was started on IV diltiazem. He was also started on ceftriaxone and azithromycin for possible pneumonia. Patient was also started on IV Solu-Medrol for possible COPD exacerbation. Patient's trelegy was continued in the hospital. 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 Start Trelegy, one puff a day, rinse and spit. USE O2; you need it all the time. At rest, your O2 saturation was 60% arriving in the office today Goal for O2 saturation is 88-94% wearing O2, NOT HIGHER. I am not going to continue to see you as a
[2021-03-12] MEDS: METOPROLOL SUCCINATE EXT REL 25 MG TABCR PO (11:54)
[2021-03-12] MEDS: ALPRAZolam (*CRX) 0.5 MG TABLET PO ×2 (12:30→20:38)
[2021-03-12] MEDS: busPIRone HCL 5 MG TABLET PO ×2 (14:17→20:36)
[2021-03-12] MEDS: FLUTICASONE/UMECLIDIN/VILANTER 200-62.5-25 MCG ELLIPTA 1 PUFF INHALATION (14:19)
--- NOTE | 2021-03-12 14:51 | PCNSR ---
On 03/12/21, the student, Erin Key, provided care and completed [facility] documentation on this patient. I have reviewed the student's documentation and agree with the findings.
--- NOTE | 2021-03-12 15:44 | PM.IMPN ---
Progress Note: A&P Assessment and Plan (1) Atrial fibrillation with RVR: Code(s): I48.91 - Unspecified atrial fibrillation Status: Acute Assessment and Plan: On his EKG looks more like atrial flutter. Patient is on a Cardizem drip and his heart rate did drop in the 80s with the Cardizem drip ran out he went up in the 120s. I could not find an EKG with the patient had done this in the past. Might be related to his respiratory issues. I did consult senior test engineer. I placed the patient on subcu Lovenox for now. 03/12/21 15:44 patient is a 64-year-old male with history of severe emphysema coronary artery disease with stent presented emergency department with complaint of shortness of breath patient was found to have atrial flutter the rate of 120 was started on Diltiazem drip which did improve his rate and trended down to 80, patient is seen by senior test engineer patient's symptoms have improved substantially after his rate trended down, patient has moderate systolic dysfunction with ejection fraction 40 45% cardiac echo done in October 2019 cardiology recommended to avoid cardizem due to cardiomyopathy and recommended to start the patient low-dose metoprolol 25 mg q.day, and started the patient Eliquis for anticoagulation, patient was seen by his certified juvenile probation officer stated since patient stopped smoking his COPD has improved, currently has no wheezing and does not suspect the patient is in exacerbation of COPD and stop Solu-Medrol as patient is currently on room air, patient will have overnight oximetry, patient states that he has stopped smoking 3 weeks ago and fentanyl abuse as well he currently is quite anxious, will start the patient on Buspar 5 mg b.i.d. and Xanax as needed. Will continue to monitor will have PT OT evaluate the patient further recommendation to follow. Patient also states today has lost over 100 lb in [address] scan of abdomen did not show any significant pathology. 1. Mild pneumonia in right lower lobe. 2. Small right pleural effusion. 3. Emphysema. 4. Mildly dilated common duct with improvement from 10/28/2019. 5. 9 mm cystic lesion in the pancreas with improvement from 10/28/2019. The differential diagnosis includes pseudocyst, intraductal papillary mucinous neoplasm (IPMN), mucinous cystic neoplasm (MCN), serous cystadenoma, and neuroendocrine tumor. Abdomen MRI without and with contrast is recommended in 2 years. (2) Elevated troponin: Code(s): R77.8 - Other specified abnormalities of plasma proteins Status: Acute Assessment and Plan: could be related to the rapid heart rate. Could be related congestive heart failure. I did consult Cardiology. Will continue to trend. The patient does not have any complaints of chest pain but he is short of breath all the time. He does have a history of COPD. (3) COPD (chronic obstructive pulmonary disease): Qualifiers: COPD type: unspecified COPD Qualified Code(s): J44.9 - Chronic obstructive pulmonary disease, unspecified Code(s): J44.9 - Chronic obstructive pulmonary disease, unspecified Status: Acute Assessment and Plan: The patient is continued with his home inhalers. I did consult Dr. Russell is he is had some infectious lung process in the past it looks like he has some scar tissue from that. I did place him on Solu-Medrol and is chronically on oxygen at home. (4) Chronic systolic congestive heart failure: Code(s): I50.22 - Chronic systolic (congestive) heart failure Status: Acute Assessment and Plan: On his last echo was 10/23/2019 the patient had an EF of 40-45% with grade 1 diastolic dysfunction. We will continue with some Lasix. I will see with the patient is on a beta-alysha on Hernandez or an Arb. I ordered another echo and I did consult Cardiology. (5) CAP (community acquired pneumonia): Code(s): J18.9 - Pneumonia, unspecified organism Status: Acute Assessment and
[2021-03-12] MEDS: MAGNESIUM SULF 1 GM/D5W 100 ML 1 GM/100 ML BAG IVPB (20:32)
[2021-03-12] MEDS: APIXABAN 5 MG TABLET PO (20:36)
[2021-03-12] MEDS: traZODone HCL 50 MG TABLET 150 MG PO (20:36)
[2021-03-12] MEDS: ATORVASTATIN 40 MG TABLET PO (20:36)
[2021-03-12] MEDS: QUEtiapine FUMARATE 25 MG TABLET 50 MG PO (20:36)
[2021-03-13] VITALS (24 sets, daily range): BP systolic 98–111; BP diastolic 70–84; PULSE 93–125; RESP 14–22; TEMP 36.2–36.5; O2SAT 87–96
--- NOTE | 2021-03-13 03:58 | PCRCNOTE ---
patient was unable to complete the apnea study on room air due to [id number]. The patient's O2 sat decreased to 83% on room air
--- NOTE | 2021-03-13 04:34 | ECG_ITS ---
Measurements Intervals Ernul Rate: 120 P: [place]: 0 QRS: 205 QRSD: 130 T: 30 QT: 352 QTc: 499 Interpretive Statements ATRIAL FLUTTER/TACHYCARDIA WITH RAPID VENTRICULAR RESPONSE RIGHT AXIS DEVIATION INTRAVENTRICULAR CONDUCTION DELAY CANNOT RULE OUT SEPTAL INFARCT, AGE INDETERMINATE BORDERLINE T WAVE ABNORMALITY- ANTEROLAT/INF LEADS ABNORMAL ECG Electronically Signed On 03-13-2021 7:35:11 CDT by Antelmo Aldana D.O.
[2021-03-13] MEDS: ALPRAZolam (*CRX) 0.5 MG TABLET PO ×3 (04:47→18:30)
[2021-03-13] MEDS: METOPROLOL SUCCINATE EXT REL 25 MG TABCR PO ×2 (06:09→18:30)
[2021-03-13] MEDS: FINASTERIDE 5 MG TABLET PO (08:33)
[2021-03-13] MEDS: busPIRone HCL 5 MG TABLET PO ×3 (08:33→20:05)
[2021-03-13] MEDS: APIXABAN 5 MG TABLET PO ×2 (08:33→20:04)
[2021-03-13] MEDS: FUROSEMIDE INJ 40 MG/4 ML VIAL IV PUSH (08:34)
[2021-03-13] MEDS: FLUTICASONE/UMECLIDIN/VILANTER 200-62.5-25 MCG ELLIPTA 1 PUFF INHALATION (08:35)
--- NOTE | 2021-03-13 09:04 | PM.PNCARD ---
Progress Note: A&P Assessment and Plan (1) Cardiomyopathy: Code(s): I42.9 - Cardiomyopathy, unspecified Status: Acute Assessment and Plan: 65 year-old male with h/o HTN, CAD s/p MA, s/p RCA PCI, Paroxysmal A fib, systolic CHF with EF 40-45%, mild aortic stenosis, COPD, lung abscess (2019), bipolar, RIGO,non compliance with meds and medical follow up, opioids and benozos use who presents with dyspnea and cough He has extensive lung disease but it appears his current presentation with dyspnea is likely due to symptomatic A flutter with RVR with subsequent acute CHF. Echo now shows further decline in LV function to 30% with RV failure as well He feels already better since HR controlled. also received lasix X1 in ER. HR up again to 120 this am Will increase Metoprolol dose to 25 BID. Will also start Digoxin load via IV. 250 mcg X1 now, 125 mcg in 6 hours, 125 in another 6 hours Once better compensated from CHF and arrhythmia standpoint, he will need repeat ischemic evaluation given further decline in LV function, preferably with cardiac cathetarization given known extensive CAD and ongoing smoking. That can be arranged in outpatient settings once more stable (2) Atrial flutter with rapid ventricular response: Code(s): I48.92 - Unspecified atrial flutter Status: Acute Assessment and Plan: HR up to 120. 2D echo showed biventricular failure with severe LV dysfunction, EF 30% and mild to moderate RV systolic dysfunction Although CCN helped rate control but will try to avoid [facility] use given severe cardiomyopathy Will up titrate metoprolol dose and also add Digoxin as above CHADsVASc score is 5. He has severe non compliance with medical follow up hence AC with Coumadin may be challenging to monitor. Started Eliquis 5 mg BID (3) CAD (coronary artery disease): Code(s): I25.10 - Atherosclerotic heart disease of [place] coronary artery without angina pectoris Status: Acute Assessment and Plan: He has history of MA and PCI to RCA however had in stent restnosis on Cath in 2017 with sub total occlusion of RCA that was filling from left collaterals. Repeated cath in 2019 showed stable findings He has mildly elevated troponin this admission that peaked at 0.6. No chest pain. No ischemic changes on EKG. Trop elevation is likely due to increased demand from tachycardia but regardless he will still need ischemic eval given decline in LV function. Will arrange that in outpatient settings (4) Chronic systolic congestive heart failure: Code(s): I50.22 - Chronic systolic (congestive) heart failure Status: Acute Assessment and Plan: Started Metorpolol Consider low dose Lisinopril if BP allows. (BP ~90-100 systolic) Received lasix X1 on admission. Appears well compensated now. Will use lasix on PRN basis (5) Tobacco dependence: Code(s): F17.200 - Nicotine dependence, unspecified, uncomplicated Status: Acute Assessment and Plan: Quit 3 weeks ago Subjective Date/time seen: 03/13/21 09:04 He feels better and would like to go home if possible. His HR is up to 120 this am. He denies chest pain or dyspnea Review of Systems Review of Systems: All systems reviewed & are unremarkable except as noted in HPI and below Constitutional: Constitutional: Denies fatigue and Denies headache(s) Eyes: Eyes: Denies blurry vision ENT: Reports Normal hearing present and Denies headache(s) Cardiovascular: Cardiovascular: Denies chest pain, Denies diaphoresis, Denies pedal edema, Denies leg edema, Denies lightheadedness, Denies palpitations and Denies dyspnea Respiratory: Respiratory: Denies cough and Denies dyspnea Gastrointestinal: Gastrointestinal: Denies abdominal pain Musculoskeletal: Musculoskeletal: Denies back pain Neurologic: Reports Normal hearing present and Denies headache(s) Psychiatric: Psychiatric: Denies anxiety Endocrine: Endocrine:
--- NOTE | 2021-03-13 10:08 | PM.PNPUL ---
Progress Note: A&P Assessment and Plan (1) COPD (chronic obstructive pulmonary disease): Qualifiers: COPD type: unspecified COPD Qualified Code(s): J44.9 - Chronic obstructive pulmonary disease, unspecified Code(s): J44.9 - Chronic obstructive pulmonary disease, unspecified Status: Acute Assessment and Plan: 65-year-old man with a history of COPD on LABA, LAMA and ICS with apical predominant panlobular emphysema on his CT scan, chronic hypoxemic respiratory failure on home oxygen 10/05, intubated for hypercarbic respiratory failure 10/2019 and 01/2020, left lung abscess 2018 presented 03/11 with worsening QUILES and increased phlegm production. Found to be in Aflutter with RVR and now improved with rate control. 03/12 Also being treated with ceftraixone and azithromycin for pneumonia (denies fever, denies change in phlegm color, WBC normal and CT scan without new infiltrates) and I will continue these antibiotics pending blood culture results. No wheezing and I do not think he is having a COPD exacerbation and will DC his solumedrol. I will continue his home COPD regimen of trelegy (200/62.03/11) at 1 puff Q day. PRN albuterol inhaler and nebs in hospital now. Since he stopped smoking his hypoxemia appears much better. Currently on RA his sats are 96%. I will order overnight oximetry on room air tonight. Will need home O2 assessment prior to discharge. 03/13 Patient states that he is 99% back to normal from respiratory viewpoint on trelegy 1 puff Q day.. Minimal cough and phlegm now. No SOB. No wheezes, appears to be tolerating BB. Room air sats 95%. Blood cultures negative and will DC ceftriaxone today and continue azithromycin for 5 days total for bronchitis (day 3 today). For HR 120 and cardiology increased BB and added digoxin. Patient had an overnight oximetry last night. Patient was initially started on room air but had desaturate is a shins less than 80%. Patient was increased to 2 L. on 2 L patient's average saturation was 94. Lowest saturation was 77%. Time with saturation less than or equal to 88% was 18 minutes or 5% of the monitor time. If in house tonight 1 will repeat overnight today on 3 L. I ordered home O2 assessment today. Ready for DC home from pulmonary perspective of these pulmonary medications: Trelegy 200/62.03/11 at 1 puff Q day Azithromycin 250 mg PO through 03/15 Albuterol inhaler and neb Q 4 PRN SOB Oxygen per Home O2 assessment (I ordered today) Oxygen 3 L at night Follow up with previously scheduled pulmonary appointment on 04/01/2021 Will follow with you. Subjective Date/time seen: 03/13/21 10:08 Interval history: Consult date: 03/12/21 Reason for consult: COPD Chief complaint: atrial flutter with rvr/chf Narrative: 65-year-old man with a history of COPD on LABA, LAMA and ICS with apical predominant panlobular emphysema on his CT scan, chronic hypoxemic respiratory failure, intubated for hypercarbic respiratory failure 10/2019 and 01/2020, left lung abscess 2018, polysubstance abuse (fentanyl and xanax buys off street), coronary artery disease s/p stent who is followed in the Pulmonary [facility]. He is known to be noncompliant with his medicines as well as his oxygen. Patient presented to the emergency department on 03/11 with worsening dyspnea on exertion was found to be in a flutter with bat rapid ventricular response. I was consulted regarding his COPD. 03/12 Patient tells me that he quit smoking cigarettes and taking fentanyl 3 weeks ago. Since then he has been feeling much better and notes that it during the day his oxygen saturations at been in the mid to high 90s on room air. He continues to wear to 3 L at night. Patient states that over the last week he has an aunt has had an increase in the volume of his phlegm, there has been no change in the phlegm color. Patient denies fever, chills, rigors, hemoptysis. Patient had worsening dyspnea on exertion and presented to the emergency room and
[2021-03-13] MEDS: ACETAMINOPHEN 325 MG TABLET 650 MG PO (10:16)
[2021-03-13] MEDS: ONDANSETRON INJ 4 MG/2 ML VIAL IV PUSH (10:17)
[2021-03-13] MEDS: DIGOXIN INJ 250 MCG/ML 2 ML AMP (*BKC) IV PUSH (10:41)
--- NOTE | 2021-03-13 11:44 | ECG_ITS ---
Measurements Intervals Coulter Rate: 122 P: KS: 0 QRS: -80 QRSD: 140 T: 48 QT: 397 QTc: 567 Interpretive Statements ATRIAL FLUTTER/TACHYCARDIA WITH RAPID VENTRICULAR RESPONSE LEFT AXIS DEVIATION INTRAVENTRICULAR CONDUCTION DELAY CANNOT RULE OUT SEPTAL INFARCT, AGE INDETERMINATE SUBTLE ST ELEVATION IN ANTERIOR LEADS BASELINE ARTIFACT- II, III, AVF ABNORMAL ECG Electronically Signed On 03-13-2021 13:38:27 CDT by Antelmo Aldana D.O.
--- NOTE | 2021-03-13 14:25 | HOMEO2EVAL ---
Evaluation was performed at [facility] Home Oxygen Evaluation RC: Home Oxygen (O2) Evaluation Start: 03/13/21 10:21 Freq: ONCE Status: Active Protocol: RPE Activity Type Activity Date Activity User E-Sign Co-Sign Detail Recorded Client Recorded Date Recorded By Document 03/13/21 13:55 KLEBER [email or web address] 03/13/21 14:25 KLEBER Document 03/13/21 14:00 KLEBER [email or web address] 03/13/21 14:25 KLEBER Document 03/13/21 14:03 KLEBER [email or web address] 03/13/21 14:25 KLEBER Document 03/13/21 14:05 KLEBER [email or web address] 03/13/21 14:25 KLEBER Document 03/13/21 14:15 KLEBER [email or web address] 03/13/21 14:25 KLEBER 03/13/21 03/13/21 03/13/21 13:55 14:00 14:03 Home O2 Evaluation Test Phase Resting Exercise Exercise Oxygen Delivery Room Air Room Air Nasal Cannula Oxygen Flow Rate (L/min) 1 Pulse Oximetry (90-100 %) 93 87 L 87 L Pulse Rate (60-100 beats/min) 100 120 H 125 H Ambulation Distance (feet) Home Oxygen Evaluation Comments Treatment Charges O2 Evaluation - Inpatient 03/13/21 03/13/21 14:05 14:15 Home O2 Evaluation Test Phase Exercise Resting Oxygen Delivery Nasal Cannula Room Air Oxygen Flow Rate (L/min) 2 Pulse Oximetry (90-100 %) 90 92 Pulse Rate (60-100 beats/min) 96 93 Ambulation Distance (feet) 300 Home Oxygen Evaluation Comments PT REQUIRES 2 L O2 WITH EXERTION/ ACTIVITY Treatment Charges
--- NOTE | 2021-03-13 14:28 | PCRCNOTE ---
PT HAS [facility] HOME O2. SHAYNA FROM [facility] WILL BRING UP TANK TODAY OR TOMMORROW AM FOR TRANSPORT HOME. ALL OTHER HOME EQUIPMENT IS IN GOOD WORKING ORDER, WILL TAKE PT SOME EXTRA TANKS UPON DISCHARGE.
[2021-03-13] MEDS: hydrOXYzine HCL 25 MG TABLET PO ×2 (14:39→22:56)
[2021-03-13] MEDS: DIGOXIN INJ 250 MCG/ML 2 ML AMP (*BKC) 125 MCG IV PUSH ×2 (14:42→20:10)
--- NOTE | 2021-03-13 16:44 | PM.IMPN ---
Progress Note: A&P Assessment and Plan (1) Atrial fibrillation with RVR: Code(s): I48.91 - Unspecified atrial fibrillation Status: Acute Assessment and Plan: On his EKG looks more like atrial flutter. Patient is on a Cardizem drip and his heart rate did drop in the 80s with the Cardizem drip ran out he went up in the 120s. I could not find an EKG with the patient had done this in the past. Might be related to his respiratory issues. I did consult grain scooper. I placed the patient on subcu Lovenox for now. 03/13/21 16:44 03/12 patient is a 64-year-old male with history of severe emphysema coronary artery disease with stent presented emergency department with complaint of shortness of breath patient was found to have atrial flutter the rate of 120 was started on Diltiazem drip which did improve his rate and trended down to 80, patient is seen by grain scooper patient's symptoms have improved substantially after his rate trended down, patient has moderate systolic dysfunction with ejection fraction 40 45% cardiac echo done in October 2019 cardiology recommended to avoid cardizem due to cardiomyopathy and recommended to start the patient low-dose metoprolol 25 mg q.day, and started the patient Eliquis for anticoagulation, patient was seen by his philosophy lecturer stated since patient stopped smoking his COPD has improved, currently has no wheezing and does not suspect the patient is in exacerbation of COPD and stop Solu-Medrol as patient is currently on room air, patient will have overnight oximetry, patient states that he has stopped smoking 3 weeks ago and fentanyl abuse as well he currently is quite anxious, will start the patient on Buspar 5 mg b.i.d. and Xanax as needed. Will continue to monitor will have PT OT evaluate the patient further recommendation to follow. Patient also states today has lost over 100 lb in [address] scan of abdomen did not show any significant pathology. 1. Mild pneumonia in right lower lobe. 2. Small right pleural effusion. 3. Emphysema. 4. Mildly dilated common duct with improvement from 10/28/2019. 5. 9 mm cystic lesion in the pancreas with improvement from 10/28/2019. The differential diagnosis includes pseudocyst, intraductal papillary mucinous neoplasm (IPMN), mucinous cystic neoplasm (MCN), serous cystadenoma, and neuroendocrine tumor. Abdomen MRI without and with contrast is recommended in 2 years. 03/13 patient clinically symptoms are improving he was able to ambulate with physical therapy however his heart rate is persisting in 120s seen by cardiology increased metoprolol 25 mg b.i.d. and added digoxin 250 mcg IV time and then continue 125 mcg every 6 hours, repeat cardiac echo showed decreased systolic dysfunction with ejection fraction of 30% compared 40-45% on last echo, most likely ischemic, cardiology recommending cardiac catheterization in the near future to further evaluate, seen by pulmonology suggested patient's symptoms are not from COPD most likely from CHF, patient continue to have anxiety we will go ahead increase Xanax 0.5 every 6 hours compared every 8 hours, and increase BuSpar 5 mg t.i.d. compared to b.i.d., will continue to monitor patient continue physical therapy and further recommendation to follow. (2) Elevated troponin: Code(s): R77.8 - Other specified abnormalities of plasma proteins Status: Acute Assessment and Plan: could be related to the rapid heart rate. Could be related congestive heart failure. I did consult Cardiology. Will continue to trend. The patient does not have any complaints of chest pain but he is short of breath all the time. He does have a history of COPD. (3) COPD (chronic obstructive pulmonary disease): Qualifiers: COPD type: unspecified COPD Qualified Code(s): J44.9 - Chronic obstructive pulmonary disease, unspecified Code(s): J44.9 - Chronic obstructive pulmonary disease, unspecified Status
--- NOTE | 2021-03-13 19:20 | PC.NURSE ---
This patient refuses bed alarm. Risks and fall prevention explained to patient. Patient stated he would call if he needed to get out of bed. Will continue to monitor.
[2021-03-13] MEDS: ATORVASTATIN 40 MG TABLET PO (20:04)
[2021-03-13] MEDS: traZODone HCL 50 MG TABLET 150 MG PO (20:04)
[2021-03-13] MEDS: QUEtiapine FUMARATE 25 MG TABLET 50 MG PO (20:04)
[2021-03-14] VITALS (21 sets, daily range): BP systolic 92–123; BP diastolic 54–95; PULSE 96–126; RESP 16–20; TEMP 36.2–36.4; O2SAT 91–97
[2021-03-14] MEDS: ALPRAZolam (*CRX) 0.5 MG TABLET PO ×4 (00:01→17:53)
[2021-03-14] MEDS: ACETAMINOPHEN 325 MG TABLET 650 MG PO ×2 (00:04→04:59)
[2021-03-14] MEDS: ONDANSETRON INJ 4 MG/2 ML VIAL IV PUSH (00:05)
[2021-03-14] MEDS: busPIRone HCL 5 MG TABLET PO ×3 (04:59→20:26)
[2021-03-14] MEDS: METOPROLOL SUCCINATE EXT REL 25 MG TABCR PO ×2 (05:50→17:54)
[2021-03-14 07:06] LABS: Troponin I 0.098 ng/mL (0.000-0.034)
--- NOTE | 2021-03-14 07:57 | PM.PNCARD ---
Progress Note: A&P Assessment and Plan (1) Cardiomyopathy: Code(s): I42.9 - Cardiomyopathy, unspecified Status: Acute Assessment and Plan: 65 year-old male with h/o HTN, CAD s/p MD, s/p RCA PCI, Paroxysmal A fib, systolic CHF with EF 40-45%, mild aortic stenosis, COPD, lung abscess (2019), bipolar, RIGO,non compliance with meds and medical follow up, opioids and benozos use who presents with dyspnea and cough He has extensive lung disease but it appears his current presentation with dyspnea is likely due to symptomatic A flutter with RVR with subsequent acute CHF. Echo now shows further decline in LV function to 30% with RV failure as well HR remains difficult to control Continue Metoprolol and Digoxin. No BP room for further up titration of BB. Will start Amiodarone. 400 TID Once better compensated from CHF and arrhythmia standpoint, he will need repeat ischemic evaluation given further decline in LV function, preferably with cardiac cathetarization given known extensive CAD and ongoing smoking. That can be arranged in outpatient settings once more stable (2) Atrial flutter with rapid ventricular response: Code(s): I48.92 - Unspecified atrial flutter Status: Acute Assessment and Plan: 2D echo showed biventricular failure with severe LV dysfunction, EF 30% and mild to moderate RV systolic dysfunction Continue Metoprolol and Digoxin. Add Amiodarone CHADsVASc score is 5. Started on Eliquis (3) CAD (coronary artery disease): Code(s): I25.10 - Atherosclerotic heart disease of yocha dehe coronary artery without angina pectoris Status: Acute Assessment and Plan: He has history of MD and PCI to RCA however had in stent restnosis on Cath in 2017 with sub total occlusion of RCA that was filling from left collaterals. Repeated cath in 2019 showed stable findings He has mildly elevated troponin this admission that peaked at 0.6. No chest pain. No ischemic changes on EKG. Trop elevation is likely due to increased demand from tachycardia but regardless he will still need ischemic eval given decline in LV function. Will arrange that in outpatient settings (4) Chronic systolic congestive heart failure: Code(s): I50.22 - Chronic systolic (congestive) heart failure Status: Acute Assessment and Plan: Started Metorpolol No BP room for JAZMYNE/ARB Received lasix X1 on admission. Appears well compensated now. Will use lasix on PRN basis (5) Tobacco dependence: Code(s): F17.200 - Nicotine dependence, unspecified, uncomplicated Status: Acute Assessment and Plan: Quit 3 weeks ago Subjective Date/time seen: 03/14/21 07:57 He continues to feel well. HR remains difficult to control ~ 120s Review of Systems Review of Systems: All systems reviewed & are unremarkable except as noted in HPI and below Constitutional: Constitutional: Denies fatigue and Denies headache(s) Eyes: Eyes: Denies blurry vision ENT: Reports Normal hearing present and Denies headache(s) Cardiovascular: Cardiovascular: Denies chest pain, Denies diaphoresis, Denies pedal edema, Denies leg edema, Denies lightheadedness, Denies palpitations and Denies dyspnea Respiratory: Respiratory: Denies cough and Denies dyspnea Gastrointestinal: Gastrointestinal: Denies abdominal pain Musculoskeletal: Musculoskeletal: Denies back pain Neurologic: Reports Normal hearing present and Denies headache(s) Psychiatric: Psychiatric: Denies anxiety Endocrine: Endocrine: Denies fatigue and Denies palpitations Exam Narrative: Exam Narrative: General - well-appearing, in no acute distress. Neck - Supple without lymphadenopathy or thyromegaly. 2+ carotid pulses with normal carotid upstroke and duration. No carotid bruits. Cardiovascular - No heave. Regular in rate and rhythm, normal S1, S2, with a I/ systolic murmur, no rubs, and no gallops. Lung - Clear to auscultation bilatera
--- NOTE | 2021-03-14 09:26 | PM.PNPUL ---
Progress Note: A&P Assessment and Plan (1) COPD (chronic obstructive pulmonary disease): Qualifiers: COPD type: unspecified COPD Qualified Code(s): J44.9 - Chronic obstructive pulmonary disease, unspecified Code(s): J44.9 - Chronic obstructive pulmonary disease, unspecified Status: Acute Assessment and Plan: 65-year-old man with a history of COPD on LABA, LAMA and ICS with apical predominant panlobular emphysema on his CT scan, chronic hypoxemic respiratory failure on home oxygen 10/05, intubated for hypercarbic respiratory failure 10/2019 and 01/2020, left lung abscess 2018 presented 03/11 with worsening QUILES and increased phlegm production. Found to be in Aflutter with RVR and now improved with rate control. 03/12 Also being treated with ceftraixone and azithromycin for pneumonia (denies fever, denies change in phlegm color, WBC normal and CT scan without new infiltrates) and I will continue these antibiotics pending blood culture results. No wheezing and I do not think he is having a COPD exacerbation and will DC his solumedrol. I will continue his home COPD regimen of trelegy (200/62.03/11) at 1 puff Q day. PRN albuterol inhaler and nebs in hospital now. Since he stopped smoking his hypoxemia appears much better. Currently on RA his sats are 96%. I will order overnight oximetry on room air tonight. Will need home O2 assessment prior to discharge. 03/13 Patient states that he is 99% back to normal from respiratory viewpoint on trelegy 1 puff Q day.. Minimal cough and phlegm now. No SOB. No wheezes, appears to be tolerating BB. Room air sats 95%. Blood cultures negative and will DC ceftriaxone today and continue azithromycin for 5 days total for bronchitis (day 3 today). For HR 120 and cardiology increased BB and added digoxin. Patient had an overnight oximetry last night. Patient was initially started on room air but had desaturate is a shins less than 80%. Patient was increased to 2 L. on 2 L patient's average saturation was 94. Lowest saturation was 77%. Time with saturation less than or equal to 88% was 18 minutes or 5% of the monitor time. If in house tonight 1 will repeat overnight today on 3 L. I ordered home O2 assessment today. home O2 assessment demonstrated resting room air oxygen saturations were 93% on room air. With a ambulation on room air saturations 87%. With saturation on 1 L nasal cannula saturations 87%. With sat ambulation on 2 L nasal cannula saturations 90%. 03/14 Patient states that he continues to improve from a respiratory viewpoint. Cough and phlegm are now all resolved. No shortness of breath and no wheezing. Patient had an overnight oximetry on 3 L nasal cannula. Average saturation 96%. Lowest saturation 79%. Time with saturation less than or equal to 88% was 1 minute. Amiodarone added per cardiology. Ready for DC home from pulmonary perspective on these pulmonary medications: Trelegy 200/62.03/11 at 1 puff Q day Azithromycin 250 mg PO through 03/15 Albuterol inhaler and neb Q 4 PRN SOB Ret room air and with ambulation 2 L per per Home O2 assessment on 03/13 Oxygen 3 L at night Follow up with previously scheduled pulmonary appointment on 04/01/2021 at 09:[address] Russell. Will follow with you. Subjective Date/time seen: 03/14/21 09:26 Interval history: Consult date: 03/12/21 Reason for consult: COPD Chief complaint: atrial flutter with rvr/chf Narrative: 65-year-old man with a history of COPD on LABA, LAMA and ICS with apical predominant panlobular emphysema on his CT scan, chronic hypoxemic respiratory failure, intubated for hypercarbic respiratory failure 10/2019 and 01/2020, left lung abscess 2018, polysubstance abuse (fentanyl and xanax buys off street), coronary artery disease s/p stent who is followed in the Pulmonary Clinic. He is known to be noncompliant with his medicines as well as his oxygen. Patient presented to the emergency department on 03/11 with worsening dyspnea on ex
[2021-03-14] MEDS: AMIODARONE HCL 200 MG TABLET 400 MG PO ×3 (10:03→17:54)
[2021-03-14] MEDS: FINASTERIDE 5 MG TABLET PO (10:04)
[2021-03-14] MEDS: FLUTICASONE/UMECLIDIN/VILANTER 200-62.5-25 MCG ELLIPTA 1 PUFF INHALATION (10:04)
[2021-03-14] MEDS: DIGOXIN TAB 125 MCG TABLET PO (10:04)
[2021-03-14] MEDS: APIXABAN 5 MG TABLET PO ×2 (10:04→20:26)
[2021-03-14] MEDS: FUROSEMIDE INJ 40 MG/4 ML VIAL IV PUSH (10:05)
--- NOTE | 2021-03-14 10:10 | PCNFU ---
Nutrition Follow-Up Complete: Nutrition Diagnosis: Weight loss related to opiate use as evidenced by a reported weight loss of 100lbs in two years and patient statements. Nutrition Goal: Have patient consume 100% of his meals and supplements. Goal was met, patient is consuming 100% of meals and supplements. Nutrition recommendation: Continue with the Heart Healthy Diet and Frozen Treat supplement. Patient enjoys the supplement and has been consuming all his meals. Last recorded weight is 60 kg, up from 55.9kg since admission. Bowel Motility: Last one documented on 03/13 Labs Reviewed:On 03/12 Cr (.5), Glu (169) Meds Noted: Lipitor, Zithromax, Lasix, Albuterol, Eliquis, Pacerone, Lanoxin, Proscar, Hydroxyzine HCl, Metoprolol, Zofran, Seroquel, Trazodone HCl Additional Notes: Patient reports meals going well, only complaint is that he can't have cottage cheese on his diet. Patient has been liking the Frozen Treat supplement, so we will continue adding that to his meals. Will follow up in 7 days.
--- NOTE | 2021-03-14 10:53 | PCNSR ---
On 03/14/21, the student,Erin Key, provided care and completed [facility] documentation on this patient. I have reviewed the student's documentation and agree with the findings.
[2021-03-14 12:13] LABS: Hematocrit 49.3 % (42.0-52.0); Hemoglobin 15.5 g/dL (14.0-18.0); Mean Corpuscular HGB Conc 31.4 g/dl (32-36); Mean Corpuscular Hemoglobin 26.8 pg (26-34); Mean Corpuscular Volume 85.1 fl (80-100); Mean Platelet Volume 10.8 fl (7.4-10.4); Platelet Count Result 247 k/mm3 (150-375); Red Blood Count 5.79 M/mm3 (4.6-6.20); Red Cell Distribution Width 15.9 % (11.5-14.5); White Blood Count 16.4 K/mm3 (4.5-10.0)
[2021-03-14 12:24] LABS: Anion Gap 4 mmol/L (8-16); Blood Urea Nitrogen 17 mg/dL (9-20); Calcium 8.5 mg/dL (8.4-10.2); Carbon Dioxide 38 mmol/L (22-30); Chloride 96 mmol/L (98-107); Estimated CRCL calculation 96 ml/min; Estimated Glomerular Filt Rate > 60; Glucose 94 mg/dL (75-110); Potassium 3.6 mmol/L (3.4-5.0); Sodium 138 mmol/L (137-145)
--- NOTE | 2021-03-14 16:16 | PM.IMPN ---
Progress Note: A&P Assessment and Plan (1) Atrial fibrillation with RVR: Code(s): I48.91 - Unspecified atrial fibrillation Status: Acute Assessment and Plan: On his EKG looks more like atrial flutter. Patient is on a Cardizem drip and his heart rate did drop in the 80s with the Cardizem drip ran out he went up in the 120s. I could not find an EKG with the patient had done this in the past. Might be related to his respiratory issues. I did consult cco & president. I placed the patient on subcu Lovenox for now. 03/14/21 16:16 03/12 patient is a 64-year-old male with history of severe emphysema coronary artery disease with stent presented emergency department with complaint of shortness of breath patient was found to have atrial flutter the rate of 120 was started on Diltiazem drip which did improve his rate and trended down to 80, patient is seen by cco & president patient's symptoms have improved substantially after his rate trended down, patient has moderate systolic dysfunction with ejection fraction 40 45% cardiac echo done in October 2019 cardiology recommended to avoid cardizem due to cardiomyopathy and recommended to start the patient low-dose metoprolol 25 mg q.day, and started the patient Eliquis for anticoagulation, patient was seen by his flight operation coordinator stated since patient stopped smoking his COPD has improved, currently has no wheezing and does not suspect the patient is in exacerbation of COPD and stop Solu-Medrol as patient is currently on room air, patient will have overnight oximetry, patient states that he has stopped smoking 3 weeks ago and fentanyl abuse as well he currently is quite anxious, will start the patient on Buspar 5 mg b.i.d. and Xanax as needed. Will continue to monitor will have PT OT evaluate the patient further recommendation to follow. Patient also states today has lost over 100 lb in [address] scan of abdomen did not show any significant pathology. 1. Mild pneumonia in right lower lobe. 2. Small right pleural effusion. 3. Emphysema. 4. Mildly dilated common duct with improvement from 10/28/2019. 5. 9 mm cystic lesion in the pancreas with improvement from 10/28/2019. The differential diagnosis includes pseudocyst, intraductal papillary mucinous neoplasm (IPMN), mucinous cystic neoplasm (MCN), serous cystadenoma, and neuroendocrine tumor. Abdomen MRI without and with contrast is recommended in 2 years. 03/13 patient clinically symptoms are improving he was able to ambulate with physical therapy however his heart rate is persisting in 120s seen by cardiology increased metoprolol 25 mg b.i.d. and added digoxin 250 mcg IV time and then continue 125 mcg every 6 hours, repeat cardiac echo showed decreased systolic dysfunction with ejection fraction of 30% compared 40-45% on last echo, most likely ischemic, cardiology recommending cardiac catheterization in the near future to further evaluate, seen by pulmonology suggested patient's symptoms are not from COPD most likely from CHF, patient continue to have anxiety we will go ahead increase Xanax 0.5 every 6 hours compared every 8 hours, and increase BuSpar 5 mg t.i.d. compared to b.i.d., will continue to monitor patient continue physical therapy and further recommendation to follow. 03/14 patient with atrial fibrillation his heart rate remains above 120 he is currently on amiodorane 200 mg b.i.d. and digoxin and 125 mcg q.day patient was seen by cardiology and increased amiodarone to 400 mg b.i.d. and cannot increase metoprolol as patient BP soft with a ischemic cardiomyopathy ejection fraction is 30%, will continue to monitor, patient seen by pulmonology suspect most likely patient's symptom stemming from atrial fibrillation with RVR and not from COPD, he remains quite anxious we have started the patient buspar 5 mg t.i.d. and Xanax 0.5 mg q.6 as needed, patient continue to participate in physical therapy, radiologist recommended once clinically stable he will nee
[2021-03-14] MEDS: traZODone HCL 50 MG TABLET 150 MG PO (20:25)
[2021-03-14] MEDS: ATORVASTATIN 40 MG TABLET PO (20:26)
[2021-03-14] MEDS: QUEtiapine FUMARATE 25 MG TABLET 50 MG PO (20:26)
[2021-03-15] VITALS (8 sets, daily range): BP systolic 85–114; BP diastolic 65–82; PULSE 79–114; RESP 12–16; TEMP 36.3–36.6; O2SAT 95
[2021-03-15 05:35] LABS: Anion Gap 1 mmol/L (8-16); Blood Urea Nitrogen 16 mg/dL (9-20); Calcium 8.6 mg/dL (8.4-10.2); Carbon Dioxide 39 mmol/L (22-30); Chloride 96 mmol/L (98-107); Estimated CRCL calculation 96 ml/min; Estimated Glomerular Filt Rate > 60; Glucose 109 mg/dL (75-110); Hematocrit 44.8 % (42.0-52.0); Hemoglobin 14.1 g/dL (14.0-18.0); Mean Corpuscular HGB Conc 31.5 g/dl (32-36); Mean Corpuscular Hemoglobin 26.6 pg (26-34); Mean Corpuscular Volume 84.4 fl (80-100); Mean Platelet Volume 11.2 fl (7.4-10.4); Platelet Count Result 218 k/mm3 (150-375); Potassium 4.2 mmol/L (3.4-5.0); Red Blood Count 5.31 M/mm3 (4.6-6.20); Red Cell Distribution Width 15.5 % (11.5-14.5); Sodium 136 mmol/L (137-145); White Blood Count 15.3 K/mm3 (4.5-10.0)
[2021-03-15] MEDS: METOPROLOL SUCCINATE EXT REL 25 MG TABCR PO (06:19)
[2021-03-15] MEDS: ALPRAZolam (*CRX) 0.5 MG TABLET PO (06:20)
[2021-03-15] MEDS: ACETAMINOPHEN 325 MG TABLET 650 MG PO (06:20)
[2021-03-15] MEDS: busPIRone HCL 5 MG TABLET PO (06:20)
--- NOTE | 2021-03-15 08:47 | PM.PNCARD ---
Progress Note: A&P Assessment and Plan (1) Cardiomyopathy: Code(s): I42.9 - Cardiomyopathy, unspecified Status: Acute Assessment and Plan: 65 year-old male with h/o HTN, CAD s/p MN, s/p RCA PCI (RCA was noted to be occluded and fills with collaterals on cath in 2017 and 2018), Paroxysmal A fib, systolic CHF with EF 40-45%, mild aortic stenosis, COPD, lung abscess (2019), bipolar, RIGO,non compliance with meds and medical follow up, opioids and benozos use who presents with dyspnea and cough He has extensive lung disease but it appears his current presentation with dyspnea is likely due to symptomatic A flutter with RVR with subsequent acute CHF. Echo now shows further decline in LV function to 30% with RV failure as well HR is well controlled now after started Amiodarone He is stable for discharge from cardiac standpoint. Would discharge on the following regimen: Metoprolol 25 mg BID Amiodarone 400 mg daily with plan to decrease to 200 mg daily on follow up Eliquis 5 mg BID Lasix 20 mg daily on as needed basis Will follow up in the office in 1 week. Previously was followed by Dr Okeefe but he prefers to stay local. Will arrange for follow up with Dr Hong in [place] office If remains stable from CHF and arrhythmia standpoint, he will need repeat ischemic evaluation given further decline in LV function, preferably with cardiac cathetarization given known extensive CAD and ongoing smoking. (2) Atrial flutter with rapid ventricular response: Code(s): I48.92 - Unspecified atrial flutter Status: Acute Assessment and Plan: 2D echo showed biventricular failure with severe LV dysfunction, EF 30% and mild to moderate RV systolic dysfunction Continue Metoprolol and Amiodarone on discharge February D/c Digoxin Continue Eliquis (3) CAD (coronary artery disease): Code(s): I25.10 - Atherosclerotic heart disease of upper [place] coronary artery without angina pectoris Status: Acute Assessment and Plan: He has history of MN and PCI to RCA however had in stent restnosis on Cath in 2017 with sub total occlusion of RCA that was filling from left collaterals. Repeated cath in 2019 showed stable findings He has mildly elevated troponin this admission that peaked at 0.6. No chest pain. No ischemic changes on EKG. Trop elevation is likely due to increased demand from tachycardia but regardless he will still need ischemic eval given decline in LV function. Will arrange that in outpatient settings (4) Chronic systolic congestive heart failure: Code(s): I50.22 - Chronic systolic (congestive) heart failure Status: Acute Assessment and Plan: Started Metorpolol No BP room for JAZMYNE/ARB Received lasix X1 on admission. Appears well compensated now. Will use lasix on PRN basis (5) Tobacco dependence: Code(s): F17.200 - Nicotine dependence, unspecified, uncomplicated Status: Acute Assessment and Plan: Quit 3 weeks ago Subjective Date/time seen: 03/15/21 08:47 He feels better. He denies chest pain or dyspnea. Feels fatigued Review of Systems Review of Systems: All systems reviewed & are unremarkable except as noted in HPI and below Constitutional: Constitutional: Denies fatigue and Denies headache(s) Eyes: Eyes: Denies blurry vision ENT: Reports Normal hearing present and Denies headache(s) Cardiovascular: Cardiovascular: Denies chest pain, Denies diaphoresis, Denies pedal edema, Denies leg edema, Denies lightheadedness, Denies palpitations and Denies dyspnea Respiratory: Respiratory: Denies cough and Denies dyspnea Gastrointestinal: Gastrointestinal: Denies abdominal pain Musculoskeletal: Musculoskeletal: Denies back pain Neurologic: Reports Normal hearing present and Denies headache(s) Psychiatric: Psychiatric: Denies anxiety Endocrine: Endocrine: Denies fatigue and Denies palpitations Exam Narrative: Exam Narrative: General
--- NOTE | 2021-03-15 08:56 | PM.DS ---
DS: Admitting Diagnosis Admitting Diagnosis Admitting Diagnosis: atrial flutter with RVR DS: Discharge Diagnosis Discharge Diagnosis (1) Atrial fibrillation with RVR: Code(s): I48.91 - Unspecified atrial fibrillation Status: Acute Assessment and Plan: On his EKG looks more like atrial flutter. Patient is on a Cardizem drip and his heart rate did drop in the 80s with the Cardizem drip ran out he went up in the 120s. I could not find an EKG with the patient had done this in the past. Might be related to his respiratory issues. I did consult catcher helper. I placed the patient on subcu Lovenox for now. 03/14/21 16:16 03/12 patient is a 64-year-old male with history of severe emphysema coronary artery disease with stent presented emergency department with complaint of shortness of breath patient was found to have atrial flutter the rate of 120 was started on Diltiazem drip which did improve his rate and trended down to 80, patient is seen by catcher helper patient's symptoms have improved substantially after his rate trended down, patient has moderate systolic dysfunction with ejection fraction 40 45% cardiac echo done in October 2019 cardiology recommended to avoid cardizem due to cardiomyopathy and recommended to start the patient low-dose metoprolol 25 mg q.day, and started the patient Eliquis for anticoagulation, patient was seen by his drafting layout man stated since patient stopped smoking his COPD has improved, currently has no wheezing and does not suspect the patient is in exacerbation of COPD and stop Solu-Medrol as patient is currently on room air, patient will have overnight oximetry, patient states that he has stopped smoking 3 weeks ago and fentanyl abuse as well he currently is quite anxious, will start the patient on Buspar 5 mg b.i.d. and Xanax as needed. Will continue to monitor will have PT OT evaluate the patient further recommendation to follow. Patient also states today has lost over 100 lb in [address] scan of abdomen did not show any significant pathology. 1. Mild pneumonia in right lower lobe. 2. Small right pleural effusion. 3. Emphysema. 4. Mildly dilated common duct with improvement from 10/28/2019. 5. 9 mm cystic lesion in the pancreas with improvement from 10/28/2019. The differential diagnosis includes pseudocyst, intraductal papillary mucinous neoplasm (IPMN), mucinous cystic neoplasm (MCN), serous cystadenoma, and neuroendocrine tumor. Abdomen MRI without and with contrast is recommended in 2 years. 03/13 patient clinically symptoms are improving he was able to ambulate with physical therapy however his heart rate is persisting in 120s seen by cardiology increased metoprolol 25 mg b.i.d. and added digoxin 250 mcg IV time and then continue 125 mcg every 6 hours, repeat cardiac echo showed decreased systolic dysfunction with ejection fraction of 30% compared 40-45% on last echo, most likely ischemic, cardiology recommending cardiac catheterization in the near future to further evaluate, seen by pulmonology suggested patient's symptoms are not from COPD most likely from CHF, patient continue to have anxiety we will go ahead increase Xanax 0.5 every 6 hours compared every 8 hours, and increase BuSpar 5 mg t.i.d. compared to b.i.d., will continue to monitor patient continue physical therapy and further recommendation to follow. 03/14 patient with atrial fibrillation his heart rate remains above 120 he is currently on amiodorane 200 mg b.i.d. and digoxin and 125 mcg q.day patient was seen by cardiology and increased amiodarone to 400 mg b.i.d. and cannot increase metoprolol as patient BP soft with a ischemic cardiomyopathy ejection fraction is 30%, will continue to monitor, patient seen by pulmonology suspect most likely patient's symptom stemming from atrial fibrillation with RVR and not from COPD, he remains quite anxious we have started the patient buspar 5 mg t.i.d. and Xanax 0.5 mg q.6 as needed, patient con
--- NOTE | 2021-03-15 09:32 | PCOTNOTE ---
Patient declined treatment due to anticipated discharge home today.
[2021-03-15] MEDS: FLUTICASONE/UMECLIDIN/VILANTER 200-62.5-25 MCG ELLIPTA 1 PUFF INHALATION (09:39)
[2021-03-15] MEDS: AMIODARONE HCL 200 MG TABLET 400 MG PO (09:39)
[2021-03-15] MEDS: FUROSEMIDE INJ 40 MG/4 ML VIAL IV PUSH (09:40)
[2021-03-15] MEDS: APIXABAN 5 MG TABLET PO (09:40)
[2021-03-15] MEDS: FINASTERIDE 5 MG TABLET PO (09:40)
--- NOTE | 2021-03-15 11:56 | PM.PNPUL ---
Progress Note: A&P Assessment and Plan (1) COPD (chronic obstructive pulmonary disease): Qualifiers: COPD type: unspecified COPD Qualified Code(s): J44.9 - Chronic obstructive pulmonary disease, unspecified Code(s): J44.9 - Chronic obstructive pulmonary disease, unspecified Status: Acute Assessment and Plan: 65-year-old man with a history of COPD on LABA, LAMA and ICS with apical predominant panlobular emphysema on his CT scan, chronic hypoxemic respiratory failure on home oxygen 10/05, intubated for hypercarbic respiratory failure 10/2019 and 01/2020, left lung abscess 2018 presented 03/11 with worsening QUILES and increased phlegm production. Found to be in Aflutter with RVR and now improved with rate control. 03/12 Also being treated with ceftraixone and azithromycin for pneumonia (denies fever, denies change in phlegm color, WBC normal and CT scan without new infiltrates) and I will continue these antibiotics pending blood culture results. No wheezing and I do not think he is having a COPD exacerbation and will DC his solumedrol. I will continue his home COPD regimen of trelegy (200/62.03/11) at 1 puff Q day. PRN albuterol inhaler and nebs in hospital now. Since he stopped smoking his hypoxemia appears much better. Currently on RA his sats are 96%. I will order overnight oximetry on room air tonight. Will need home O2 assessment prior to discharge. 03/13 Patient states that he is 99% back to normal from respiratory viewpoint on trelegy 1 puff Q day.. Minimal cough and phlegm now. No SOB. No wheezes, appears to be tolerating BB. Room air sats 95%. Blood cultures negative and will DC ceftriaxone today and continue azithromycin for 5 days total for bronchitis (day 3 today). For HR 120 and cardiology increased BB and added digoxin. Patient had an overnight oximetry last night. Patient was initially started on room air but had desaturate is a shins less than 80%. Patient was increased to 2 L. on 2 L patient's average saturation was 94. Lowest saturation was 77%. Time with saturation less than or equal to 88% was 18 minutes or 5% of the monitor time. If in house tonight 1 will repeat overnight today on 3 L. I ordered home O2 assessment today. home O2 assessment demonstrated resting room air oxygen saturations were 93% on room air. With a ambulation on room air saturations 87%. With saturation on 1 L nasal cannula saturations 87%. With sat ambulation on 2 L nasal cannula saturations 90%. 03/14 Patient states that he continues to improve from a respiratory viewpoint. Cough and phlegm are now all resolved. No shortness of breath and no wheezing. Patient had an overnight oximetry on 3 L nasal cannula. Average saturation 96%. Lowest saturation 79%. Time with saturation less than or equal to 88% was 1 minute. Amiodarone added per cardiology. 03/15 Patient is at baseline at this time. Ready for DC home from pulmonary perspective on these pulmonary medications: Trelegy 200/62.03/11 at 1 puff Q day Azithromycin 250 mg PO through 03/15 Albuterol inhaler and neb Q 4 PRN SOB Ret room air and with ambulation 2 L per per Home O2 assessment on 03/13 Oxygen 3 L at night Follow up with previously scheduled pulmonary appointment on 04/01/2021 at 09:[address] Russell[address] Discussed with Dr. Lafleur Subjective Date/time seen: 03/15/21 11:56 Interval history: Consult date: 03/12/21 Reason for consult: COPD Chief complaint: atrial flutter with rvr/chf Narrative: 65-year-old man with a history of COPD on LABA, LAMA and ICS with apical predominant panlobular emphysema on his CT scan, chronic hypoxemic respiratory failure, intubated for hypercarbic respiratory failure 10/2019 and 01/2020, left lung abscess 2018, polysubstance abuse (fentanyl and xanax buys off street), coronary artery disease s/p stent who is followed in the Pulmonary [facility]. He is known to be noncompliant with his medicines as well as his oxygen. Patient presented to the emerge
== END 2021-03-15 11:20 | disposition home or self-care (01) | DRG 292 ==
LOC: ANHED 13:02 → ANHIMU 13:58
PROVIDERS: Internal Medicine; Nurse Practitioner; Admitting Provider Family Medicine; Emergency Provider Emergency Medicine; PCP Family Medicine; Visit Provider Internal Medicine
DX: I11.0 Hypertensive heart disease with heart failure (principal); I48.92 Unspecified atrial flutter; K86.2 Cyst of pancreas; J96.11 Chronic respiratory failure with hypoxia; Z99.81 Dependence on supplemental oxygen; I50.43 Acute on chronic combined systolic (congestive) and diastolic (congestive) heart failure; J43.9 Emphysema, unspecified; Z91.14 Patient's other noncompliance with medication regimen; F41.9 Anxiety disorder, unspecified; N40.1 Benign prostatic hyperplasia with lower urinary tract symptoms; R39.11 Hesitancy of micturition; F31.9 Bipolar disorder, unspecified; D64.9 Anemia, unspecified; I25.10 Atherosclerotic heart disease of native coronary artery without angina pectoris; Z95.5 Presence of coronary angioplasty implant and graft; K21.9 Gastro-esophageal reflux disease without esophagitis; E78.5 Hyperlipidemia, unspecified; G47.33 Obstructive sleep apnea (adult) (pediatric); M19.90 Unspecified osteoarthritis, unspecified site; I48.0 Paroxysmal atrial fibrillation; Z87.891 Personal history of nicotine dependence; F11.10 Opioid abuse, uncomplicated; R63.4 Abnormal weight loss; Z68.23 Body mass index [BMI] 23.0-23.9, adult; R77.8 Other specified abnormalities of plasma proteins; F12.90 Cannabis use, unspecified, uncomplicated; I25.5 Ischemic cardiomyopathy; K83.8 Other specified diseases of biliary tract
CPT/HCPCS: 36415; 71046; 71275; 74177; 80048; 80053; 83605; 83690; 83735; 84443; 84484; 85025; 85027; 85380; 85610; 85730; 87040; 87070; 87205; 93005; 93306; 94618; 94640; 94762; 96365; 96366; 96367; 96368; 96372; 96375; 96376; 97110; 97116; 97161; 97165; 97530; 97535; 99285; A9270; G0378; J0456; J0696; J1160; J1650; J1940; J2405; J2930; J3475; Q9967

== ENCOUNTER 2021-03-17 06:57 | Inpatient (IN) | payer OTHER, SELFPAY ==
[2021-03-17] VITALS (15 sets, daily range): BP systolic 61–131; BP diastolic 35–77; PULSE 48–76; RESP 14–92; TEMP 36.2; O2SAT 20–98; BMI 22.6
--- NOTE | ~2021-03-17 | XR_ITS ---
EXAMINATION: XR chest ET placement DATE: 03/17/2021 07:30 INDICATION: Intubation. TECHNIQUE: A single frontal view of the chest was obtained. COMPARISON: Chest 2 views 03/11/2021, chest CT 03/11/2021 FINDINGS: The lungs are hyperexpanded, consistent with emphysema. There are airspace opacities in the upper lobes and at right lung base. There is a small right pleural effusion. No pneumothorax. Cardio megaly is noted. The endotracheal tube tip is 1.3 cm above the kwasi. The nasogastric tube tip is be yond the inferior margin of the radiograph, but at least to the stomach. IMPRESSION: 1. Stable airspace opacities in the upper lobes and at right lung base, consistent with pneumonia and scarring. 2. Stable small right pleural effusion. 3. Emphysema. 4. Cardiomegaly. Reviewed, dictated and finalized at location A. IMPRESSION: 1. Stable airspace opacities in the upper lobes and at right lung base, consist ent with pneumonia and scarring. 2. Stable small right pleural effusion. 3. Emphysema. 4. Cardiomegaly.
--- NOTE | ~2021-03-17 | CT_ITS ---
EXAMINATION: CT brain wo con DATE: 03/17/2021 15:50 INDICATION: Cardiac arrest. Patient unresponsive. TECHNIQUE: Computed tomography (CT) of the head was performed without intravenous contrast. The dose- length product was 681.00 mGy-cm. Automated exposure control and iterative reconstruction technique w ere employed. COMPARISON: CT dated 06/21/2019 FINDINGS: Brain parenchymal volume is normal for age. Basilar cisterns are patent. There is intracran ial atherosclerosis. There are scattered mild periventricular and subcortical white matter changes, m ost likely related to small vessel ischemic disease (microangiopathy). No ventriculomegaly or midline shift. Basilar cisterns are patent. Study limited by motion artifact. IMPRESSION: 1. No acute intracranial abnormality. 2: Chronic age-related findings. Reviewed, dictated and finalized at location A.
--- NOTE | ~2021-03-17 | XR_ITS ---
EXAMINATION: XR abdomen NG/feed tube insert DATE: 03/17/2021 07:30 INDICATION: Nasogastric tube placement. TECHNIQUE: A supine view of the abdomen was obtained. COMPARISON: CT abdomen and pelvis 03/12/2021 FINDINGS: There are no dilated loops of bowel. The nasogastric tube tip is in the stomach. IMPRESSION: 1. Nasogastric tube tip in the stomach. Reviewed, dictated and finalized at location A.
--- NOTE | 2021-03-17 07:05 | ECG_ITS ---
Measurements Intervals [place] Rate: 70 P: 68 KS: 214 QRS: 259 QRSD: 111 T: -15 QT: 435 QTc: 470 Interpretive Statements SINUS RHYTHM VENTRICULAR PREMATURE COMPLEX RIGHT AXIS DEVIATION INCOMPLETE RIGHT BUNDLE BRANCH BLOCK POOR R WAVE PROGRESSION, ANTERIOR LEADS INFERIOR INFARCT, AGE INDETERMINATE BORDERLINE ST-T WAVE ABNORMALITY- ANTEROLATERAL LEADS BASELINE ARTIFACT- I, II, III, V1-V3, V6 ABNORMAL ECG Electronically Signed On 03-17-2021 12:34:28 CDT by Antelmo Aldana D.O.
--- NOTE | 2021-03-17 07:05 | ED.GENADULT ---
HPI - General Adult General Chief complaint: Cardiac Arrest/CPR <Heriberto Rivas MD - Last Filed: 03/17/21 07:44> Stated complaint: CODE <Heriberto Rivas MD - Last Filed: 03/17/21 07:44> Time Seen by Provider: 03/17/21 10:20 <Heriberto Rivas MD - Last Filed: 03/17/21 07:44> History of Present Illness HPI narrative: Patient is a 65-year-old male who presents ER in cardiac arrest. Patient was found down at approximately 6 AM. He had not been seen for per hour prior to that. Dispatch received a phone call at 6:11 AM. EMS arrived on scene and found patient in asystole. Patient was intubated in the field by EMS. He received ACLS protocol. 20 minutes into CPR there was a change from asystole to junctional rhythm and a slight pulse felt. Pulses were lost and ACLS protocol was continued on the way to the ER. Patient recently quit opiates however Narcan was administered in case patient was overdosing.. <Heriberto Rivas MD - Last Filed: 03/17/21 07:44> Related Data Home medications: Home Medications Medication Instructions Recorded Confirmed finasteride 5 mg PO DAILY 09/10/19 03/11/21 albuterol sulfate INHALATION 12/17/20 atorvastatin 12/17/20 finasteride mg 12/17/20 ipratropium-albuterol ml INHALATION 12/17/20 omeprazole 12/17/20 paroxetine HCl mg PO 12/17/20 atorvastatin 40 mg PO HS 03/11/21 03/11/21 quetiapine 50 mg PO HS 03/11/21 03/11/21 trazodone 150 mg PO HS 03/11/21 03/11/21 <Heriberto Rivas MD - Last Filed: 03/17/21 07:44> Allergies/adverse reactions: Allergies Allergy/AdvReac Type Severity Reaction Status Date / Time Penicillins Allergy Unknown Unknown Verified 03/14/21 09:29 <Heriberto Rivas MD - Last Filed: 03/17/21 07:44> Review of Systems Review of Systems: ROS unobtainable: Yes unobtainable due to medical condition <Heriberto Rivas MD - Last Filed: 03/17/21 07:44> [facility] Past Medical History Medical History: Medical History (Updated 03/17/21 @ 10:31 by Radames Fuentes MD) Anxiety Arthritis Benign prostatic hyperplasia Bipolar 1 disorder Bowel obstruction Chronic anemia Chronic respiratory failure Chronic systolic congestive heart failure Echocardiogram in October 2018 showed some regional wall motion abnormalities and thus accurate ejection fraction could not be reported. Limited echocardiogram in August 2019 showed mildly reduced LV systolic function with ejection fraction of 40% as well as diastolic dysfunction grade 2. Mid inferior wall and basal anterior lateral wall were akinetic. COPD (chronic obstructive pulmonary disease) Coronary artery disease Depression Diverticulitis Essential hypertension GERD (gastroesophageal reflux disease) Hiatal hernia Hyperlipidemia Hypoxemia Obstructive sleep apnea Opiate use Osteoarthritis Pancreatitis Paroxysmal atrial fibrillation Renal disease Tobacco dependence <Heriberto Rivas MD - Last Filed: 03/17/21 07:44> Surgical History Surgical History: Surgical History (System 03/14/21 @ 09:29 by Elvira Orlando) History of bowel resection For benign tumor. History of coronary artery stent placement The patient stated x2 History of repair of right rotator cuff History of right knee joint replacement <Heriberto Rivas MD - Last Filed: 03/17/21 07:44> Family History Family History: Family History (System 03/14/21 @ 09:29 by Elvira Orlando) Sibling Acute myocardial infarction Colon cancer Diabetes mellitus Hypertension Leukemia Father Acute myocardial infarction Congestive heart failure Mother History of blood clots Cerebrovascular accident Chronic obstructive pulmonary disease Asthma Cancer Sibling Diabetes mellitus Sibling Family history of malignant neoplasm Carcinoma of colon Family history of lung cancer Father Family history of malignant neoplasm Family history of heart disease in male family member before ag
[2021-03-17] MEDS: NOREPINEPHRINE 8 MG/D5W 250 ML 8 MG/250 ML BAG 15 MG IV CONT (07:16)
--- NOTE | 2021-03-17 07:25 | PC.NURSE ---
at bedside with Dr. Rivas at this time discussing care
--- NOTE | 2021-03-17 07:28 | PC.NURSE ---
[facility] has decided to withdrawl care at this time.
[2021-03-17] MEDS: MORPHINE SULFATE (*CRX) 4 MG/ML INJ IV PUSH (07:35)
--- NOTE | 2021-03-17 07:36 | PC.NURSE ---
Dr. Rivas at bedside, intubation tube removed at this time.
[2021-03-17 07:45] LABS: Albumin Level 3.2 g/dL (3.5-5.1); Alkaline Phosphatase 101 U/L (38-126); Anion Gap 20 mmol/L (8-16); Bilirubin,Total 1.2 mg/dL (0.2-1.3); Blood Urea Nitrogen 40 mg/dL (9-20); Calcium 8.3 mg/dL (8.4-10.2); Carbon Dioxide 22 mmol/L (22-30); Chloride 92 mmol/L (98-107); Estimated Glomerular Filt Rate 40; Glucose 89 mg/dL (75-110); Potassium 5.4 mmol/L (3.4-5.0); Sodium 134 mmol/L (137-145)
[2021-03-17] MEDS: LORazepam INJ (*CRX) 2 MG/ML VIAL 1 MG IV PUSH (07:45)
[2021-03-17 07:52] LABS: Alanine Aminotransferase 603 U/L (4-50); Aspartate Amino Transferase 1012 U/L (17-59)
[2021-03-17 07:55] LABS: Troponin I 0.149 ng/mL (0.000-0.034)
[2021-03-17] MEDS: MORPHINE SULFATE (*CRX) 2 MG/ML INJ IV PUSH ×2 (09:24→10:15)
--- NOTE | 2021-03-17 09:26 | PC.NURSE ---
and son at bedside
[2021-03-17] MEDS: MORPHINE SULFATE (*CRX) 4 MG/ML INJ 2 MG IV PUSH (11:28)
--- NOTE | 2021-03-17 11:35 | ADMGEN ---
This patient, Christoph Napier , was admitted to Medical Room 346-01. Patient/family oriented to hospital policies and general routines including ID bracelet, bed and alarms, visiting hours, pain management, procedures, bathroom and other care routines, personal items, smoking policy, room service/diet, and visiting hours. Information on how to activate the Rapid Response Team has been discussed. Patient/Family are encouraged to report perceived risks to care and to ask questions if they do not understand what they are told or what they should do.
--- NOTE | 2021-03-17 13:00 | PM.IMHP ---
H&P: HPI History of Present Illness Date/Time: 03/17/21 13:00 Chief Complaint: Cardiac arrest. Narrative: This is a 65-year-old male with multiple medical problems who presented to the emergency department earlier today from home via EMS from in cardiac arrest. He was found slumped over and unresponsive on his Rollator at approximately 06:00 by his . EMS was summoned and on their arrival he was cold and in asystole. Narcan 4 milligrams was given x1 given his history of opioid abuse, with no benefit. ACLS protocol was initiated and he had a brief return of pulse before going back into asystole. After multiple rounds of CPR, return of spontaneous circulation was achieved at 06:58. When the patient's presented to the emergency department, she expressed that the patient did not want to be intubated and she wished for him to be extubated and kept comfortable. He had no spontaneous movement and it was thought he would likely pass away in the emergency department however he is now being admitted for comfort measures. At the time my evaluation he is unresponsive, breathing 8 to 10 times a minute. and son are at bedside and continue to support comfort measures only. They are requesting a CT of the brain as the patient apparently fell out of bed last night and hit his head, and they are wondering if he may have a bleed. The CT is being done solely for their benefit and peace of mind. Review of Systems Review of Systems: Narrative: Unable to be obtained given patient's current clinical condition. [facility] Past Medical History Medical History (Updated 03/17/21 @ 23:58 by Afsaneh Mckenna PA-C) Anxiety Arthritis Benign prostatic hyperplasia Bipolar 1 disorder Bowel obstruction Chronic anemia Chronic obstructive pulmonary disease Chronic respiratory failure Chronic systolic congestive heart failure Echocardiogram in October 2018 showed some regional wall motion abnormalities and thus accurate ejection fraction could not be reported. Limited echocardiogram in August 2019 showed mildly reduced LV systolic function with ejection fraction of 40% as well as diastolic dysfunction grade 2. Mid inferior wall and basal anterior lateral wall were akinetic. Coronary artery disease Depression Diverticulitis Essential hypertension Gastroesophageal reflux disease Hiatal hernia Hyperlipidemia Hypoxemia Obstructive sleep apnea Opiate use Osteoarthritis Pancreatitis Paroxysmal atrial fibrillation Renal disease Tobacco dependence Surgical History Surgical History History of bowel resection For benign tumor. History of coronary artery stent placement The patient stated x2 History of repair of right rotator cuff History of right knee joint replacement Family History Family History Sibling Acute myocardial infarction Colon cancer Diabetes mellitus Hypertension Leukemia Father Acute myocardial infarction Congestive heart failure Mother History of blood clots Cerebrovascular accident Chronic obstructive pulmonary disease Asthma Cancer Sibling Diabetes mellitus Sibling Family history of malignant neoplasm Carcinoma of colon Family history of lung cancer Father Family history of malignant neoplasm Family history of heart disease in male family member before age 55 Family history of cardiovascular disease Mother Family history of lung cancer Social History Social History (Updated 03/17/21 @ 23:58 by Afsaneh Mckenna PA-C) Social History: Patient lives with his Vale who is his POA. He is disabled from his COPD. He does have known ongoing opioid abuse. Continues to smoke 1 pack of cigarettes daily. Previous alcohol abuse with last alcoholic drink approximately 5 years ago. Smoking packs per day: 3 Smoking cigarettes per day: 60.0 Years smoked: 55 Smoking pack-years: 16
[2021-03-18] MEDS: MORPHINE SULFATE (*CRX) 4 MG/ML INJ 2 MG IV PUSH ×3 (03:21→15:53)
[2021-03-18] MEDS: LORazepam INJ (*CRX) 2 MG/ML VIAL 1 MG IV PUSH ×3 (03:22→16:22)
[2021-03-18] MEDS: ATROPINE SULFATE 1% OPHTH SOLN 5 ML BOTTLE 1 DROP SUBLINGUAL ×3 (05:24→15:49)
[2021-03-18 06:03] VITALS: TEMP 36.4
[2021-03-18 09:35] VITALS: O2SAT 89
[2021-03-18] MEDS: MINERAL OIL/PETROLATUM OPHTH OINT 3.5 GM (EYE LUBRICANT) 1 APPLIC EACH EYE (09:35)
[2021-03-18 13:00] VITALS: BP 130/72; PULSE 88; RESP 20; TEMP 37.5; O2SAT 88
--- NOTE | 2021-03-18 13:55 | PM.IMPN ---
Progress Note: A&P Assessment and Plan (1) Cardiopulmonary arrest with successful resuscitation: Code(s): I46.9 - Cardiac arrest, cause unspecified Status: Acute Assessment and Plan: PATIENT IS ON HOSPICE AND COMFORT CARE MEASURES ONLY, CURRENTLY CONTINUE COMFORT CARE ADDED A SCOPOLAMINE PATCH (2) Comfort measures only status: Code(s): Z51.5 - Encounter for palliative care Status: Acute Additional Plan The patient was found unresponsive and was in asystole on EMS arrival. Return of spontaneous circulation was achieved after nearly and hour. later reported that the patient had not wanted extraordinary measures and did not want to be intubated ever again. He was extubated and is being admitted to the floor with comfort measures. Long discussion with the patient's and son at bedside with what to expect. All questions answered. Subjective Date/time seen: 03/18/21 13:55 Review of Systems Review of Systems: ROS unobtainable: Yes unobtainable due to medical condition (STUPOROUS) Exam Narrative: Exam Narrative: General: Acutely ill-appearing male in the semi-Gonzalez position in bed. Weight: 57.9 kilograms. BMI: 22.6. HEENT: Left pupil on 1st exam was fixed and dilated, but was pinpoint on later exam. Right pupil is pinpoint and not reactive. Sclerae anicteric. Edentulous. Tacky mucous membranes. Neck: Supple. Respiratory: Diminished breath sounds due to poor effort. Breathing spontaneously at approximately 8 times a minute. Cardiovascular: Regular rate and rhythm. Gastrointestinal: Abdomen is soft and nondistended with hypoactive bowel sounds. Skin: Warm and dry. Scattered bruising. Extremities: No significant cyanosis. Left tibial IO was in place. Neurological: Unresponsive. Absent corneal reflex. Unable to obtain reflexes. Psychiatric: Unable to assess. Objective Data Vital Signs Vital Signs: Vital Signs - 24 hr 03/17/21 19:22 03/18/21 06:03 03/18/21 09:35 Temperature 97.1 F L 97.6 F Pulse Rate 48 L Respiratory Rate 22 H Blood Pressure 131/77 Pulse Oximetry 89 L 89 L Intake/Output Intake/Output: Intake & Output 03/15/21 03/16/21 03/17/21 03/18/21 23:59 23:59 23:59 23:59 Intake Total 10 Balance 10 Meds/Results Medications: Active Medications Generic Name Dose Route Start Last Admin Trade Name Freq PRN Reason Stop Dose Admin Atropine Sulfate 1 drop 03/18/21 03:31 03/18/21 09:34 Atropine Sulfate 1% Ophth Soln 5 Ml Bottle SUBLINGUAL 1 drop Q2H PRN Administration Secretions Lorazepam 1 mg 03/18/21 00:04 03/18/21 09:37 Lorazepam Inj (*Crx) 2 Mg/Ml Vial IV PUSH 1 mg Q6H PRN Administration Anxiety Mineral Oil/Petrolatum/Glycerin 1 applic 03/17/21 13:46 03/18/21 09:35 Mineral Oil/Petrolatum Ophth Oint 3.5 Gm (Eye Lubricant) EACH EYE 1 applic PRN PRN Administration Dry Eye(s) Morphine Sulfate 2 mg 03/17/21 10:34 03/18/21 09:37 Morphine Sulfate (*Crx) 4 Mg/Ml Inj IV PUSH 2 mg Q2H PRN Administration Pain Rated 7-10 Ondansetron HCl 4 mg 03/17/21 10:34 Ondansetron Inj 4 Mg/2 Ml Vial IV PUSH Q4H PRN Nausea Radiology Results: ITS Impressions Abdomen X-Ray 03/17/21 07:31 IMPRESSION: 1. Nasogastric tube tip in the stomach. Chest X-Ray 03/17/21 07:32 IMPRESSION: 1. Stable airspace opacities in the upper lobes and at right lung base, consistent with pneumonia and scarring. 2. Stable small right pleural effusion. 3. Emphysema. 4. Cardiomegaly. Head CT 03/17/21 15:52 IMPRESSION: 1. No acute intracranial abnormality. 2: Chronic age-related findings.
[2021-03-18] MEDS: SCOPOLAMINE 1.5 MG PATCH TRANSDERM (15:48)
[2021-03-18 16:31] VITALS: BP 101/79; PULSE 100; RESP 12; TEMP 36.5; O2SAT 86
[2021-03-18] MEDS: MORPHINE SULFATE (*CRX) 4 MG/ML INJ IV PUSH ×3 (17:22→22:37)
[2021-03-18] MEDS: LORazepam INJ (*CRX) 2 MG/ML VIAL IV PUSH (18:49)
[2021-03-19] MEDS: MORPHINE SULFATE (*CRX) 4 MG/ML INJ IV PUSH ×6 (00:37→14:30)
[2021-03-19 08:53] VITALS: O2SAT 86
[2021-03-19] MEDS: ATROPINE SULFATE 1% OPHTH SOLN 5 ML BOTTLE 1 DROP SUBLINGUAL (11:01)
[2021-03-19 12:24] VITALS: RESP 14
[2021-03-19 14:00] VITALS: BP 85/59; PULSE 110; RESP 12; TEMP 40.1; O2SAT 92
[2021-03-19 14:29] VITALS: TEMP 40.1
--- NOTE | 2021-03-19 16:12 | PM.DS ---
DS: Admitting Diagnosis Admitting Diagnosis Admitting Diagnosis: Cardiac arrest w Rosc Anoxic brain injury DS: Discharge Diagnosis Discharge Diagnosis (1) Cardiopulmonary arrest with successful resuscitation: Code(s): I46.9 - Cardiac arrest, cause unspecified Status: Acute (2) Chronic obstructive pulmonary disease: Code(s): J44.9 - Chronic obstructive pulmonary disease, unspecified Status: Acute (3) Comfort measures only status: Code(s): Z51.5 - Encounter for palliative care Status: Acute (4) Cardiomyopathy: Code(s): I42.9 - Cardiomyopathy, unspecified Status: Acute (5) Atrial flutter with rapid ventricular response: Code(s): I48.92 - Unspecified atrial flutter Status: Acute (6) Acute on chronic systolic (congestive) heart failure: Code(s): I50.23 - Acute on chronic systolic (congestive) heart failure Status: Acute (7) Atrial fibrillation with RVR: Code(s): I48.91 - Unspecified atrial fibrillation Status: Acute (8) COPD (chronic obstructive pulmonary disease): Qualifiers: COPD type: unspecified COPD Qualified Code(s): J44.9 - Chronic obstructive pulmonary disease, unspecified Code(s): J44.9 - Chronic obstructive pulmonary disease, unspecified Status: Acute (9) Hypoxemia: Code(s): R09.02 - Hypoxemia Status: Acute (10) Paroxysmal atrial fibrillation: Code(s): I48.0 - Paroxysmal atrial fibrillation Status: Acute (11) Chest pain: Code(s): R07.9 - Chest pain, unspecified Status: Acute (12) Multiple organ system failure: Status: Acute (13) Anoxic brain injury: Code(s): G93.1 - Anoxic brain damage, not elsewhere classified Status: Acute DS: Summary Hospital Course Reason for hospitalization: Cardiac arrest Hospital Course: 65-year-old male admitted to the hospital after being found down in the field. After prolonged resuscitation efforts ROSC was achieved. Unfortunately, due to the prolonged period of pulselessness it is believed that he suffered significant anoxic brain injury. After careful consideration for Christoph's expressed desires his withdrew care. He is discharged in grave condition to hospice. Time Spent with Patient Time attestation: Total time spent providing and/or coordinating discharge services: 35min Discharge Plan Discharge Attending physician on discharge: Vannessa Grimm Discharging Clinician: Vannessa Grimm Anticipated Discharge Date/Time: 03/19/21 16:16 Patient Disposition: Hospice - Medical Facility Activity: as tolerated Diet: NPO Patient Instructions: Apixaban (By mouth), Pain Management (DC), Comfort Measures (GEN) Stand Alone Forms: General Discharge Information Discharge Medications: No Action Trelegy Ellipta 200-62.5-25 mcg blister with device 1 inh inhalation DAILY 30 Days Qty: 60 RF: 1 finasteride 5 mg tablet 5 mg PO DAILY RF: 0 omeprazole 40 mg capsule,delayed release(DR/EC) 40 mg DAILY RF: 0 paroxetine HCl 20 mg tablet 20 mg PO DAILY RF: 0 atorvastatin 40 mg Tablet 40 mg PO HS RF: 0 quetiapine 50 mg tablet 50 mg PO HS RF: 0 trazodone 100 mg tablet 150 mg PO HS RF: 0 buspirone 5 mg Tablet 5 mg PO Q8HR Qty: 90 RF: 0 acetaminophen [Mapap (acetaminophen)] 325 mg Tablet 650 mg PO Q4H PRN (Reason: Mild Pain (1-3) Or Fever) Qty: 60 RF: 0 amiodarone [Pacerone] 200 mg Tablet 400 mg PO DAILY Qty: 30 RF: 0 metoprolol succinate [Toprol XL] 25 mg Tablet Extended Release 24 Hr 25 mg PO Q12H Qty: 60 RF: 0 Eliquis 5 mg Tablet 5 mg PO Q12HR Qty: 60 RF: 0 furosemide 20 mg tablet 20 mg PO DAILY PRN (Reason: edema) Qty: 10 RF: 0 albuterol sulfate [Ventolin HFA] 90 mcg/actuation HFA aerosol inhaler 1 - 2 puff INHALATION Q4-6H PRN (Reason: shortness of breath or wheezing) Qty: 8.5 RF: 1 Date of admission
== END 2021-03-19 16:23 | disposition hospice, inpatient (51) | DRG 296 ==
LOC: ANHED 10:31 → ANH3MED 15:54
PROVIDERS: Emergency Medicine; Admitting Provider Internal Medicine; Emergency Provider Emergency Medicine; PCP Family Medicine; Visit Provider Hospitalist
DX: I46.9 Cardiac arrest, cause unspecified (principal); I50.23 Acute on chronic systolic (congestive) heart failure; I42.9 Cardiomyopathy, unspecified; J96.11 Chronic respiratory failure with hypoxia; G93.1 Anoxic brain damage, not elsewhere classified; Z51.5 Encounter for palliative care; I48.92 Unspecified atrial flutter; I11.0 Hypertensive heart disease with heart failure; I25.10 Atherosclerotic heart disease of native coronary artery without angina pectoris; J44.9 Chronic obstructive pulmonary disease, unspecified; G47.33 Obstructive sleep apnea (adult) (pediatric); F17.210 Nicotine dependence, cigarettes, uncomplicated; I48.0 Paroxysmal atrial fibrillation; Z95.5 Presence of coronary angioplasty implant and graft
CPT/HCPCS: 36415; 70450; 80053; 84484; 92950; 93005; 96365; 96375; 96376; 99291; A9270; J0131; J0171; J2060; J2270

== ENCOUNTER 2021-03-19 15:30 | HOS | payer OTHER, SELFPAY ==
[2021-03-19] MEDS: MORPHINE SULFATE INJ (*CRX) 50 MG in SODIUM CHLORIDE 0.9% IV 95 ML IV CONT (18:19)
[2021-03-19 18:20] VITALS: TEMP 38.6
[2021-03-19 20:51] VITALS: TEMP 38.1
[2021-03-20] VITALS (8 sets, daily range): BP systolic 127; BP diastolic 98; PULSE 112; RESP 26; TEMP 37.8–39.7; O2SAT 95
[2021-03-20] MEDS: MORPHINE SULFATE (*CRX) 2 MG/ML INJ 1 MG IV PUSH ×2 (00:29→10:07)
[2021-03-20] MEDS: LORazepam INJ (*CRX) 2 MG/ML VIAL 1 MG IV PUSH ×2 (01:29→08:18)
[2021-03-20] MEDS: ACETAMINOPHEN 650 MG SUPPOSITORY RECTAL ×2 (08:19→12:39)
[2021-03-20] MEDS: KETOROLAC 15 MG/ML VIAL (*BKC) IV PUSH (10:06)
[2021-03-20] MEDS: MORPHINE SULFATE (*CRX) 4 MG/ML INJ IV PUSH (15:47)
--- NOTE | 2021-03-20 16:29 | PM.IMHP ---
H&P: HPI History of Present Illness Date/Time: 03/20/21 16:29 Chief Complaint: Unresponsive after cardiac arrest Narrative: Mr. Napier is a 65-year-old gentleman wo was discharged [facility] on 03/15/21 following hospitalization for atrial fibrillation with rapid ventricular rate congestive heart failure and COPD with community-acquired pneumonia. Prognosis was guarded at that time. He had a history of medication noncompliance. On March 18 the morning of admission he was found unresponsive by family. EMS was summoned and he was flat lined for about 20 minutes with the cut off saw grader. He has been responsive to everything but noxious stimuli since then. he was admitted with comfort care only. Transition to inpatient hospice care on March 19. Became febrile overnight. Temperature is reasonably well controlled with Tylenol suppositories and IV Toradol. Morphine drip was initially at 1 milligram/hour with 2 mg every 2 hours as needed. He was comfortable until a fever when he began breathing more rapidly. Family states he appears more comfortable now the drip was at 2 milligrams/hour embolus 4 mg every 2 hours as needed. Review of Systems Review of Systems: ROS unobtainable: Yes unobtainable due to medical condition PMF Past Medical History Medical History Anxiety Arthritis Benign prostatic hyperplasia Bipolar 1 disorder Bowel obstruction Chronic anemia Chronic obstructive pulmonary disease Chronic respiratory failure Chronic systolic congestive heart failure Echocardiogram in October 2018 showed some regional wall motion abnormalities and thus accurate ejection fraction could not be reported. Limited echocardiogram in August 2019 showed mildly reduced LV systolic function with ejection fraction of 40% as well as diastolic dysfunction grade 2. Mid inferior wall and basal anterior lateral wall were akinetic. Coronary artery disease Depression Diverticulitis Essential hypertension Gastroesophageal reflux disease Hiatal hernia Hyperlipidemia Hypoxemia Obstructive sleep apnea Opiate use Osteoarthritis Pancreatitis Paroxysmal atrial fibrillation Renal disease Tobacco dependence Surgical History Surgical History History of bowel resection For benign tumor. History of coronary artery stent placement The patient stated x2 History of repair of right rotator cuff History of right knee joint replacement Family History Family History Sibling Colon cancer Diabetes mellitus Acute myocardial infarction Leukemia Hypertension Father Acute myocardial infarction Congestive heart failure Mother History of blood clots Chronic obstructive pulmonary disease Cancer Cerebrovascular accident Asthma Sibling Diabetes mellitus Sibling Family history of malignant neoplasm Family history of lung cancer Carcinoma of colon Father Family history of heart disease in male family member before age 55 Family history of malignant neoplasm Family history of cardiovascular disease Mother Family history of lung cancer Social History Social History Social History: Patient lives with his Vale who is his POA. He is disabled from his COPD. He does have known ongoing opioid abuse. Continues to smoke 1 pack of cigarettes daily. Previous alcohol abuse with last alcoholic drink approximately 5 years ago. Smoking packs per day: 3 Smoking cigarettes per day: 60.0 Years smoked: 55 Smoking pack-years: 165.00 Smoking status: Current every day smoker Tobacco type: cigarettes Smoking end date: 02/15/21 Substance use: former Other substance usage details: fentanyl Last use: 03/07 Additional living arrangements comments: Patient lives with his . Additional occupation/education comments:
[2021-03-20] MEDS: MORPHINE SULFATE INJ (*CRX) 50 MG in SODIUM CHLORIDE 0.9% IV 95 ML IV CONT (18:24)
[2021-03-21] MEDS: LORazepam INJ (*CRX) 2 MG/ML VIAL 1 MG IV PUSH (00:57)
[2021-03-21 01:04] VITALS: TEMP 39.6
[2021-03-21] MEDS: ACETAMINOPHEN 650 MG SUPPOSITORY RECTAL (01:04)
[2021-03-21 04:49] VITALS: BP 102/81; PULSE 80; RESP 16; TEMP 39.4; O2SAT 94
[2021-03-21] MEDS: KETOROLAC 15 MG/ML VIAL (*BKC) IV PUSH (04:50)
[2021-03-21 05:20] VITALS: TEMP 38.2
--- NOTE | 2021-03-21 07:39 | PC.NURSE ---
Time of called by Elena Tai RN at 0668 03/21/21. Patients at the bedside.
--- NOTE | 2021-03-24 10:36 | PM.DDS ---
Discharge Sum: Prov Provider Primary care physician: Star Ellison, Admitting provider: Wilian Lafleur MD Discharge Sum: Diag Contributing Factors (1) Anoxic brain injury: (2) Cardiopulmonary arrest with successful resuscitation: (3) Multiple organ system failure: (4) Chronic obstructive pulmonary disease: (5) Acute on chronic systolic (congestive) heart failure: (6) Hypoxemia: (7) Paroxysmal atrial fibrillation: (8) Tobacco dependence: (9) CAD (coronary artery disease): Discharge Sum: Summary Date and Time Date of admission: 03/19/21 16:24 Summary Details: Admitted to acute care after resuscitation from cardiac arrest. Down for undetermined time prior to resuscitation. No improvement in mental status. Family opted to comfort care only. Admitted to inpatient hospice service. Medications titrated to comfort. Patient peacefully. Additional Data Attending/PCP notified?: Yes Attending physician: Wilian Lafleur MD Was code activated?: No Autopsy requested?: No
== END 2021-03-21 09:00 | disposition expired | DRG 951 ==
PROVIDERS: Admitting Provider Internal Medicine; PCP Family Medicine; Visit Provider Internal Medicine
DX: Z51.5 Encounter for palliative care (principal); I50.23 Acute on chronic systolic (congestive) heart failure; G93.1 Anoxic brain damage, not elsewhere classified; J44.9 Chronic obstructive pulmonary disease, unspecified; F17.210 Nicotine dependence, cigarettes, uncomplicated; I46.9 Cardiac arrest, cause unspecified; I25.10 Atherosclerotic heart disease of native coronary artery without angina pectoris; I48.0 Paroxysmal atrial fibrillation; R09.02 Hypoxemia
CPT/HCPCS: A9270; J1885; J2060; J2270